=== PATIENT | female | born 1995 | race Hispanic/Latino ===

== ENCOUNTER 2021-02-09 15:49 | Emergency (ER) | payer OTHER, MEDICAID, SELFPAY ==
[2021-02-09 15:59] VITALS: BP 134/81; PULSE 81; RESP 18; TEMP 36.4; O2SAT 99
[2021-02-09] MEDS: ONDANSETRON 4 MG ODT SL (16:20)
--- NOTE | 2021-02-09 20:28 | ED.NAVMDI ---
HPI - Nausea/Vomiting/Diarrhea General Chief complaint: Nausea/Vomiting/Diarrhea Stated complaint: vomiting s/p yesterday Source: patient Mode of arrival: Ambulatory Related Data Allergies Allergy/AdvReac Type Severity Reaction Status Date / Time No Known Drug Allergies Allergy Verified 02/09/21 16:01 Patient History Social History Smoking Status: Never smoker Smoking Status: Never smoker Exam Initial Vital Signs Initial Vital Signs: Vital Signs Temperature 97.5 F L 02/09/21 15:59 Pulse Rate 81 02/09/21 15:59 Respiratory Rate 18 02/09/21 15:59 Blood Pressure 134/81 02/09/21 15:59 Pulse Oximetry 99 02/09/21 15:59 Course Orders Ordered: Discontinued Medications Ondansetron HCl (Ondansetron 4 Mg Odt) 4 mg SL NOW ONE Stop: 02/09/21 16:03 Last Admin: 02/09/21 16:20 Dose: 4 mg Documented by: MERVAT Vital Signs Vital signs: Vital Signs - 8 hr 02/09/21 15:59 Temperature 97.5 F L Pulse Rate 81 Respiratory Rate 18 Blood Pressure 134/81 Pulse Oximetry 99 Discharge Plan Departure Patient Disposition: Left Against Medical Advice Clinical Impression: Patient left before evaluation by physician Stand Alone Forms: Against Medical Advice
== END 2021-02-09 17:54 | disposition left against medical advice (07) ==
PROVIDERS: Emergency Provider Emergency Medicine; PCP Pediatrics
CPT/HCPCS: 99283

== ENCOUNTER 2021-05-04 18:06 | Emergency (ER) | payer OTHER, MEDICAID, SELFPAY ==
[2021-05-04 18:31] VITALS: BP 123/85; PULSE 86; RESP 20; TEMP 37.1; O2SAT 97
--- NOTE | 2021-05-04 19:37 | DI.US.S_ITS ---
PROCEDURE: US OB <= 14 WEEKS FETUS INDICATIONS: BLEEDING, CRAMPING OUTSIDE/PRIOR DATING DATA: Last menstrual period (LMP): 03/30/2021. LMP-based estimated date of delivery (BRITTANY): 01/02/2022. First dating scan (date and location): This exam. Estimated date of delivery (BRITTANY) from first dating scan: 05/04/2021. TECHNIQUE: Real-time scanning was performed of the fetus and maternal pelvic organs, with image documentation. Endovaginal scanning was also performed to better visualize the fetus and maternal ovaries. COMPARISON: None. FINDINGS: There is an intrauterine gestation sac. Based on the mean gestation sac dimension, the estimated gestational age is 5 weeks 6 days. A pole is not identified. There is a complex fluid collection in the endometrial canal. No free fluid in the cul-de-sac or adnexa. Embryo: n.a. Heart rate: n.a. Measurement variability in dating: +/- 4 weeks by LMP, +/- 7 days by mean sac diameter (use before 6 weeks gestation if crown-rump length not able to be measured), +/- 5 days by crown-rump length (up to 8 weeks 6 days gestation), +/- 7 days by crown-rump length (up to 13 weeks 6 days gestation). Maternal organs: Left ovary contains a 5.2 x 2.7 x 2.2 cm complex cyst. Left ovary contains a 1.4 x 1.0 x 1.3 cm complex cyst. IMPRESSION: 1. There is an intrauterine gestational sac but no pole. The finding could be secondary to early intrauterine . 2. Cannot rule out ectopic at this time. Recommend clinical correlation and follow-up. 3. Complex fluid collection in the endometrial canal. Recommend imaging follow-up as clinically indicated. 4. Bilateral complex cysts in ovaries. Dictated by: Elizabeth Morrison M.D. on 05/04/2021 at 21:17 Approved by: Elizabeth Morrison M.D. on 05/04/2021 at 21:21
--- NOTE | 2021-05-04 20:05 | ED.GENADULT ---
HPI - General Adult General Chief complaint: Vaginal Bleeding Stated complaint: 5 weeks bleeding Time Seen by Provider: 05/04/21 19:34 Source: patient Mode of arrival: Ambulatory History of Present Illness HPI narrative: 25-year-old female. at approximately 5 weeks EGA he was here for evaluation of vaginal bleeding. She believes she is approximately 5 weeks EGA based on her last menstrual cycle. Earlier today she started noticing some lower abdominal cramping. She states that she feels like she squamous started menstrual cycle. No urinary symptoms. No change in bowel habits. No vomiting. Related Data Allergies Allergy/AdvReac Type Severity Reaction Status Date / Time No Known Drug Allergies Allergy Verified 02/09/21 16:01 Review of Systems Cardiovascular Cardiovascular: Reports system reviewed and no additional complaints, except as documented Respiratory Respiratory: Reports system reviewed and no additional complaints, except as documented Gastrointestinal Gastrointestinal: Reports as per HPI and Reports system reviewed and no additional complaints, except as documented Genitourinary Genitourinary: Reports system reviewed and no additional complaints, except as documented and Reports as per HPI Hematologic/Lymphatic On Anticoagulants: No Patient History Medical History Healthy adult Social History Smoking Status: Never smoker Smoking Status: Never smoker Exam Initial Vital Signs Initial Vital Signs: Vital Signs Temperature 98.7 F 05/04/21 18:31 Pulse Rate 86 05/04/21 18:31 Respiratory Rate 20 05/04/21 18:31 Blood Pressure 123/85 05/04/21 18:31 Pulse Oximetry 97 05/04/21 18:31 Const General: cooperative and healthy appearing [facility] Head: normal to inspection and normocephalic Resp Effort & Inspection: normal respiratory effort Cardio Rate: regular rate GI Inspection: normal to inspection Skin General: no rashes or lesions noted Neuro General: patient alert, patient awake, patient oriented x3 and moves all extremities Extrem General: normal to inspection and capillary refill normal Course Orders Ordered: ED Orders 05/04/21 19:37 US OB <= 14 weeks fetus Stat 05/04/21 20:12 Basic Metabolic Panel Stat Complete Blood Count AUTO DIFF Stat HCG Quantitative /Beta subunit Stat 05/04/21 20:15 ABO RH Type Stat Vital Signs Vital signs: Vital Signs - 8 hr 05/04/21 22:26 Pulse Rate 85 Respiratory Rate 14 Blood Pressure 118/80 Pulse Oximetry 99 Medical Decision Making Lab Data Lab results reviewed: Yes I reviewed the patient's lab results. Result diagrams: 05/04/21 20:12 05/04/21 20:12 Labs: Lab Results 05/04/21 05/04/21 05/04/21 Range/Units 20:12 20:12 20:12 WBC 10.9 (4.5-11.0) X10^3/uL RBC 3.95 L (4.0-5.2) X10^6/uL Hgb 12.4 (12.0-16.0) g/dL Hct 36.8 (36-46) % MCV 93.1 (80-100) fL MCH 31.3 (26-34) PG MCHC 33.6 (30-36) % RDW 12.8 (11.6-14.8) % Plt Count 260 (150-400) X10^3/uL Neut % (Auto) 71.0 (50-75) % Lymph % (Auto) 23.2 L (25-40) % Harvey % (Auto) 4.5 (3-14) % Eos % (Auto) 0.8 L (2-4) % Baso % (Auto) 0.5 (0-2) % Neut # (Auto) 7800 H (7743-0628) /uL Lymph # (Auto) 2500 (9706-9126) /uL Harvey # (Auto) 500 (0-900) /uL Eos # (Auto) 100 (0-450) /uL Baso # (Auto) 100 (0-100) /uL Sodium 139 (137-145) mmol/L Potassium 3.4 (3.4-5.1) mmol/L Chloride 104 (98-107) mmol/L Carbon Dioxide 23 (22-32) mmol/L BUN 7 (7-17) mg/dL Creatinine 0.53 (0.52-1.04) mg/dL Estimated GFR > 60.0 (>60) mL/min BUN/Creatinine Ratio 13.2 (6-22) Glucose 92 (70-100) mg/dL Calcium 9.3 (8.4-10.2) mg/dL HCG, Quant 647 mIU/mL Blood Type 05/04/21 Range/Units 20:15 WBC (4.5-11.0) X10^3/uL RBC (4.0-5.2) X10^6/uL Hgb (12.0-16.0) g/dL Hct (36-46) % MCV (80-100) fL MCH (26-34) PG MCHC (30-36) % RDW (11.6-14.8) % Plt Count (150-400) X10^3/uL Neut % (Auto) (50-75) % Lymph % (Auto) (25-40) % Harvey % (Auto) (3-14) % Eos % (Auto) (2-4) % Baso % (Auto) (0-2) % Neut # (Auto) (7770-0664) /uL Lymph # (Auto) (4595-8442) /uL Harvey # (Auto) (0-900) /uL Eos # (Auto) (0-450) /uL Baso # (Auto) (0-100) /uL Sodium (137-145) mmol/L Potassium (3.4-5.1) mmol/L Chloride (98-107) mmol/L Carbon Dioxide (22-32) mmol/L BUN (7-17) mg/dL Creatinine (0.52-1.04) mg/dL Estimated GFR (>60) mL/min BUN/Creatinine Ratio (6-22) Glucose (70-100) mg/dL Calcium (8.4-10.2) mg/dL HCG, Quant mIU/mL Blood Type O Positive Point of Care Testing Test Results Positive Urine Dip Bedside Urine Glucose Negative Bedside Urine Bilirubin - Negative Bedside Urine Ketone - Negative Urine Specific [place] 1.03 Bedside Urine Occult Blood + Bedside Urine pH 6 Bedside Urine Protein - Negative Bedside Urine Urobilinogen - Negative Bedside Urine Nitrite - Negative Bedside Urine Leukocytes - Negative Esterase Point of care testing: Point of Care Testing Test Results Positive Urine Dip Bedside Urine Glucose Negative Bedside Urine Bilirubin - Negative Bedside Urine Ketone - Negative Urine Specific [place] 1.03 Bedside Urine Occult Blood + Bedside Urine pH 6 Bedside Urine Protein - Negative Bedside Urine Urobilinogen - Negative Bedside Urine Nitrite - Negative Bedside Urine Leukocytes - Negative Esterase Imaging Data US - OB: Radiologist's Impression: [address] [address] Ultrasound Report Signed Patient: Jeannine Hall MR#: [id number] : 1995 Acct:[id number] Age/Sex: 25 / F Date of Service: 05/04/21 Loc: Accession Number: [id number] ?? Procedure: US OB <= 14 weeks fetus Ordering Provider: Francisco Tarango D.O. PROCEDURE:? US OB <= 14 WEEKS FETUS ? INDICATIONS:? BLEEDING, CRAMPING ? OUTSIDE/PRIOR DATING DATA:? Last menstrual period (LMP):? 03/30/2021.? LMP-based estimated date of delivery (BRITTANY):? 01/02/2022.? First dating scan (date and location):? This exam.? Estimated date of delivery (BRITTANY) from first dating scan:? 05/04/2021.? ? TECHNIQUE:? Real-time scanning was performed of the fetus and maternal pelvic organs, with image documentation.? Endovaginal scanning was also performed to better visualize the fetus and maternal ovaries.? ? COMPARISON:? None. ? FINDINGS:? There is an intrauterine gestation sac.? Based on the mean gestation sac dimension, the estimated gestational age is 5 weeks 6 days.? A pole is not identified.? There is a complex fluid collection in the endometrial canal.? No free fluid in the cul-de-sac or adnexa. ? Embryo:? n.a. Heart rate: n.a. ? Measurement variability in dating:? +/- 4 weeks by LMP, +/- 7 days by mean sac diameter (use before 6 weeks gestation if crown-rump length not able to be measured), +/- 5 days by crown-rump length (up to 8 weeks 6 days gestation), +/- 7 days by crown-rump length (up to 13 weeks 6 days gestation).? ? Maternal organs:? Left ovary contains a 5.2 x 2.7 x 2.2 cm complex cyst.? Left ovary contains a 1.4 x 1.0 x 1.3 cm complex cyst. ? ? ? IMPRESSION:? ? 1. There is an intrauterine gestational sac but no pole.? The finding could be secondary to early intrauterine . ? 2. Cannot rule out ectopic at this time.? Recommend clinical correlation and follow-up. ? 3. Complex fluid collection in the endometrial canal.? Recommend imaging follow-up as clinically indicated. ? 4. Bilateral complex cysts in ovaries.? Dictated by: Elizabeth Morrison M.D. on 05/04/2021 at 21:17 ? ? Approved by: Elizabeth Morrison M.D. on 05/04/2021 at 21:21?? MDM Narrative Medical decision making narrative: Patient is Rh positive. HCG quant below the discriminatory threshold. Gestational sac but no yolk sac seen on the ultrasound. I did discuss this with the patient. We did discuss the concern for potential ectopic because we did not definitively see the fetus in the uterus. We discussed the potential for the quantitative being low because of a miscarriage versus is elevating because of her early . Recommend that the patient receive a repeat quantitative level in 48 hours from today. She was given strict return precautions and follow-up instructions. She will either contact her OB provider to have this lab draw or return to the emergency department. She expressed understanding and agreement this plan. Discharge Plan Departure Patient Disposition: Home Clinical Impression: Threatened Instructions: DI for Vaginal Bleeding During Activity Restrictions/Additional Instructions: It is important that she have a repeat lab draw in 48 hours from now. Contact your OB provider to schedule this or you can return to the emergency department. If you start to have new symptoms to include increasing pain, fevers, bleeding more than a couple pads an hour for several hours in a row then you do need to return to the emergency department sooner than 48 hours. Your blood type is O positive Referrals: Balbina Escudero MD [Primary Care Provider] -
[2021-05-04 20:18] LABS: Add Manual Diff / Slide Review NO; Basophils Absolute Auto 100 /uL (0-100); Basophils Percent Auto 0.5 % (0-2); Eosinophils Absolute Auto 100 /uL (0-450); Eosinophils Percent Auto 0.8 % (2-4); Hematocrit 36.8 % (36-46); Hemoglobin 12.4 g/dL (12.0-16.0); Lymphocytes Absolute Auto 2500 /uL (1100-4500); Lymphocytes Percent Auto 23.2 % (25-40); Mean Corpuscular HGB Conc 33.6 % (30-36); Mean Corpuscular Hemoglobin 31.3 PG (26-34); Mean Corpuscular Volume 93.1 fL (80-100); Monocytes Absolute Auto 500 /uL (0-900); Monocytes Percent Auto 4.5 % (3-14); Neutrophils Absolute Auto 7800 /uL (1500-7000); Platelet Count 260 X10^3/uL (150-400); Red Blood Cell Count 3.95 X10^6/uL (4.0-5.2); Red Cell Distribution Width 12.8 % (11.6-14.8); White Blood Cell Count 10.9 X10^3/uL (4.5-11.0)
[2021-05-04 20:31] LABS: BUN Creatinine Ratio 13.2 (6-22); Blood Urea Nitrogen 7 mg/dL (7-17); Calcium 9.3 mg/dL (8.4-10.2); Carbon Dioxide 23 mmol/L (22-32); Chloride 104 mmol/L (98-107); Estimated Glomerular Filt Rate > 60.0 mL/min (>60); Glucose 92 mg/dL (70-100); HEMOLYSIS < 15 (0-50); Potassium 3.4 mmol/L (3.4-5.1); Sodium 139 mmol/L (137-145)
[2021-05-04 20:51] LABS: HCG Quantitative /Beta subunit 647 mIU/mL
[2021-05-04 22:26] VITALS: BP 118/80; PULSE 85; RESP 14; O2SAT 99
== END 2021-05-04 22:32 | disposition home or self-care (01) ==
PROVIDERS: Emergency Provider Emergency Medicine; PCP Pediatrics
DX: O20.0 Threatened abortion (principal); Z3A.01 Less than 8 weeks gestation of pregnancy
CPT/HCPCS: 36415; 76801; 76817; 80048; 81003; 81025; 84702; 85025; 86900; 86901; 99283; 99284

== ENCOUNTER 2021-10-01 19:28 | Emergency (ER) | payer OTHER, MEDICAID, SELFPAY ==
--- NOTE | 2021-10-01 19:35 | ED.EYEPROB ---
HPI - Eye Problem <JZA Corrigan - Last Filed: 10/01/21 20:29> General Chief complaint: Eye Problems Stated complaint: Right eye swollen shut x5 days Time Seen by Provider: 10/01/21 19:34 Related Data Previous Rx's Medication Instructions Recorded gentamicin 0.3 % (3 mg/gram) eye 0.5 inch EYE-RIGHT QID 5 Days #3.5 10/01/21 ointment g gentamicin 0.3 % eye drops 1 drp EAR-RIGHT QID 5 Days #5 ml 10/01/21 Allergies Allergy/AdvReac Type Severity Reaction Status Date / Time latex Allergy Verified 10/01/21 19:47 Review of Systems <JAZ Corrigan - Last Filed: 10/01/21 20:29> Review of Systems Narrative: General: denies fever, chills Head/Neck: denies headache, neck pain Eyes: denies visual changes, eye pain Cardio: denies chest pain, palpitations Respiratory: denies shortness of breath, cough GI: denies abdominal pain, nausea, vomiting, or diarrhea : denies dysuria, hematuria MSK: denies joint pain, muscle weakness Skin: denies rash, itching Neuro: denies numbness, tingling Patient History <JAZ Corrigan - Last Filed: 10/01/21 20:29> Medical History Healthy adult Social History Smoking Status: Never smoker Smoking Status: Never smoker Exam <JAZ Corrigan - Last Filed: 10/01/21 20:29> Narrative Exam Narrative: Independently reviewed vitals signs and nursing notes. General: Awake, alert, nontoxic, no cardiorespiratory distress Head/Neck: Atraumatic, neck full range of motion Eyes: EOMI, conjunctiva normal Nose: nares patent, no rhinorrhea Mouth/Throat: moist mucus membranes, posterior pharynx normal, no oral lesions Cardio: Regular rate and rhythm, no peripheral edema Respiratory: respirations unlabored without wheezing, stridor, or rales. No retractions. GI: Abdomen soft, nontender MSK: Moves all extremities, neurovascularly intact Skin: Normal capillary refill, no rash Neuro: Normal speech and cognition, normal gait Initial Vital Signs Initial Vital Signs: Vital Signs Pulse Rate 78 10/01/21 20:06 Respiratory Rate 20 10/01/21 20:06 Blood Pressure 106/53 L 10/01/21 20:06 Pulse Oximetry 100 10/01/21 20:06 <Graham Clement DO - Last Filed: 10/02/21 00:55> Initial Vital Signs Initial Vital Signs: Vital Signs Pulse Rate 78 10/01/21 20:06 Respiratory Rate 20 10/01/21 20:06 Blood Pressure 106/53 L 10/01/21 20:06 Pulse Oximetry 100 10/01/21 20:06 Course <JAZ Corrigan - Last Filed: 10/01/21 20:29> Orders Ordered: Discontinued Medications Acetaminophen (Acetaminophen 325 Mg Tablet) 975 mg PO NOW ONE Stop: 10/01/21 20:02 Last Admin: 10/01/21 20:18 Dose: 975 mg Documented by: FELIPE Gentamicin Sulfate (Gentamicin 0.1% Oint 30 Gm) 1 applic TOP NOW ONE Stop: 10/01/21 20:02 Gentamicin Sulfate (Gentamicin 0.3% Ophth 5 Ml) 1 drops EYE-LEFT QID BETTY Ofloxacin (Ofloxacin 0.3% Ophth 5 Ml) 1 drops EYE-BOTH NOW ONE Stop: 10/01/21 20:15 Last Admin: 10/01/21 20:19 Dose: 1 drop Documented by: FELIPE Vital Signs Vital signs: Vital Signs - 8 hr 10/01/21 20:06 Pulse Rate 78 Respiratory Rate 20 Blood Pressure 106/53 L Pulse Oximetry 100 <Graham Clement DO - Last Filed: 10/02/21 00:55> Orders Ordered: Discontinued Medications Acetaminophen (Acetaminophen 325 Mg Tablet) 975 mg PO NOW ONE Stop: 10/01/21 20:02 Last Admin: 10/01/21 20:18 Dose: 975 mg Documented by: FELIPE Gentamicin Sulfate (Gentamicin 0.1% Oint 30 Gm) 1 applic TOP NOW ONE Stop: 10/01/21 20:02 Gentamicin Sulfate (Gentamicin 0.3% Ophth 5 Ml) 1 drops EYE-LEFT QID BETTY Ofloxacin (Ofloxacin 0.3% Ophth 5 Ml) 1 drops EYE-BOTH NOW ONE Stop: 10/01/21 20:15 Last Admin: 10/01/21 20:19 Dose: 1 drop Documented by: FELIPE Vital Signs Vital signs: Vital Signs - 8 hr 10/01/21 20:06 Pulse Rate 78 Respiratory Rate 20 Blood Pressure 106/53 L Pulse Oximetry 100 [facility] - Eye Problem <Rosio Barriga, YARN DUMPER - Last Filed: 10/01/21 20:29> [facility] Narrative Medical decision making narrative: [age] old female presents to the emergency department with right eyelid erythema for 2 days after starting erythromycin ointment for her corneal abrasion which occurred 4 days ago. Patient states that she got something in her eye 4 days ago, rubbed it, and had pain in tearing at night. She used natural tears for 2 days until her prescriber ordered her erythromycin ointment. She states that she has used this most recently at 11:00 today; after after using it she developed scleral and conjunctival injection, has had frequent tearing. She denies eye pain or foreign body sensation. She is not a contact lens wearer. She denies any eye pain with movement. She denies any pruritus. Fluorescein exam did not show any corneal abrasion, visual acuity Rt eye: 40/20, left 20/20, both 20/20, patient is wearing glasses and her vision was corrected for this exam. No evidence of chalazion, hordeolum, stye, blepharitis, or dacryocystitis. Patient denies any nasal pain or swelling, denies any eye discharge other than clear tears, states that the erythromycin ointment is irritating and painful. She was given afloxacin drops in the emergency department, she denied any pain with medication, she was instructed to uses 4 times daily for the next 5 days until she follows up with Ophthalmology or her scheduled adoption social worker appointment in 3 days. She was given a referral for Ophthalmology and instructed to follow-up with them sooner if she has any more pain or return to the emergency department for any worsening, any eye pain, any vision changes, facial swelling, or other concern. Differential includes iritis, other stated diagnoses above, conjunctivitis. Patient is appropriate and amenable to discharge home. Vital signs are stable on repeat examination is unremarkable. Patient has been informed of results. Patient has been given strict return to ER precautions for any new or worsening symptoms. Patient understands to follow up closely with outpatient providers as instructed. Patient understands plan and agrees to discharge home. All questions and concerns answered at this time. Discharge Plan Departure Patient Disposition: Home Clinical Impression: Conjunctivitis Qualifiers: Conjunctivitis type: acute Acute conjunctivitis type: unspecified Laterality: right Qualified Code(s): H10.31 - Unspecified acute conjunctivitis, right eye Instructions: Corneal Abrasion, Conjunctivitis Activity Restrictions/Additional Instructions: *You have been diagnosed with conjunctivitis, possibly reaction to the erythromycin ointment, possibly iritis. Please follow-up with your adoption social worker on Sunday as scheduled. Please call and make an appointment with the core paster on Sunday if it is significantly worse or return to the emergency department. If you have any eye pain with movement, difficulty seeing, feel eye pressure, or like a curtain is closing in your eye, please come to the emergency department immediately. Hopefully you start to get better with a new eye drop. Occult a prescription in to [facility] of drops and ointment. I prefer you take go with the drops and see if that makes it any better, if the lubrication is needed from the ointment, try that and see if it causes any problems. By that time you can follow-up the next day with Ophthalmology or Optometry. Take Tylenol every 6 hours as needed for pain. This can be a horrible things to deal with. I wish you the best. *What to do: *Please continue to take your regular medications as directed. [x ] New medication prescriptions sent to your pharmacy: [ [facility]] [ ] New medication written as a paper prescription [ ] No new medications given *Please follow up with your primary care provider in 2-3 days, call for an appointment. Let them know you were seen in the Emergency Department and that we asked that you be seen for follow-up. We will electronically transmit a record of today's note if your PCP is in our system *If you do not have a primary care provider please contact [phone] to establish care with one of the [facility] primary care providers. *Return to Emergency Department if you should have any new, worsening or concerning symptoms, such as [fever greater than 101F, chills, worsening pain, persistent vomiting or other bothersome symptoms] Prescriptions: New gentamicin 0.3 % (3 mg/gram) ointment 0.5 inch EYE-RIGHT QID 5 Days Qty: 3.5 0RF gentamicin 0.3 % drops 1 drp EAR-RIGHT QID 5 Days Qty: 5 0RF Referrals: Justin Peters MD [Physician] - Sandie Johansen ARNP [Primary Care Provider] - <Graham Clement DO - Last Filed: 10/02/21 00:55> Cosign ED Attending Cosignature Attestation: I was immediately available in the department for consultation. This documentation has been reviewed and I agree with assessment and plan. Supervised by rGaham Clement DO
[2021-10-01 19:45] VITALS: BMI 30.8
[2021-10-01 20:06] VITALS: BP 106/53; PULSE 78; RESP 20; O2SAT 100
[2021-10-01] MEDS: ACETAMINOPHEN 325 MG TABLET 975 MG PO (20:18)
[2021-10-01] MEDS: OFLOXACIN 0.3% OPHTH 5 ML 1 DROPS EYE-BOTH (20:19)
== END 2021-10-01 20:28 | disposition home or self-care (01) ==
PROVIDERS: Emergency Provider Nurse Practitioner Critical Care Medicine; PCP Nurse Practitioner Family
DX: H10.31 Unspecified acute conjunctivitis, right eye (principal)
CPT/HCPCS: 99282; 99283

== ENCOUNTER 2021-10-09 17:49 | Emergency (ER) | payer OTHER, MEDICAID, SELFPAY ==
[2021-10-09 18:13] VITALS: BP 126/61; PULSE 90; RESP 16; TEMP 36.4; O2SAT 99; BMI 30.8
[2021-10-09] MEDS: SODIUM CHLORIDE 0.9% 1,000 ML 1000 ML IV (18:36)
[2021-10-09] MEDS: ONDANSETRON 4 MG/2 ML INJ IV (18:36)
[2021-10-09] MEDS: ONDANSETRON 4 MG/2 ML INJ (20:20)
[2021-10-09 21:28] LABS: Add Manual Diff / Slide Review NO; Basophils Absolute Auto 0 /uL (0-100); Basophils Percent Auto 0.2 % (0-2); Eosinophils Absolute Auto 0 /uL (0-450); Eosinophils Percent Auto 0.1 % (2-4); Hematocrit 38.5 % (36-46); Lymphocytes Absolute Auto 1300 /uL (1100-4500); Lymphocytes Percent Auto 10.6 % (25-40); Mean Corpuscular HGB Conc 33.8 % (30-36); Mean Corpuscular Hemoglobin 31.8 PG (26-34); Mean Corpuscular Volume 94.1 fL (80-100); Monocytes Absolute Auto 400 /uL (0-900); Monocytes Percent Auto 3.3 % (3-14); Neutrophils Absolute Auto 10500 /uL (1500-7000); Neutrophils Percent Auto 85.8 % (50-75); Platelet Count 270 X10^3/uL (150-400); Red Blood Cell Count 4.09 X10^6/uL (4.0-5.2); White Blood Cell Count 12.2 X10^3/uL (4.5-11.0)
[2021-10-09 21:38] LABS: Alanine Aminotransferase 31 IU/L (<35); Albumin 4.7 g/dL (3.5-5.0); Albumin Globulin Ratio 1.1 (1.0-2.8); Alkaline Phosphatase 54 U/L (38-126); Aspartate Aminotransferase 43 IU/L (14-36); BUN Creatinine Ratio 17.3 (6-22); Bilirubin Total 0.5 mg/dL (0.2-1.3); Blood Urea Nitrogen 9 mg/dL (7-17); Calcium 9.2 mg/dL (8.4-10.2); Carbon Dioxide 20 mmol/L (22-32); Chloride 104 mmol/L (98-107); Estimated Glomerular Filt Rate > 60.0 mL/min (>60); Globulin 4.1 g/dL (1.7-4.1); Glucose 79 mg/dL (70-100); HEMOLYSIS 22 (0-50); Potassium 3.7 mmol/L (3.4-5.1); Sodium 137 mmol/L (137-145); Total Protein 8.8 g/dL (6.3-8.2)
--- NOTE | 2021-10-09 21:58 | PC.NURSE ---
2020: with h/o hyperemesis comes to ED today with nausea and vomiting that started at 0300 this morning. no associated abd painm, denies bleeding or spotting. Has not yet has her first OB appt but is using a mainstreaming facilitator in [place]. IV placed and labs drawn. pt placed in [place] parikh with 1L NS infusing and zofran given. upon completion of NS pt states she is feeling better however slightly nauseated. 2nd dose 4mg zofran given per SEP and pt PO challenged with water and passed. Pt waiting to see physician. No complaints. 2144: Pt states she is feeling better. Pt still has not been evaluated by MD. Pt states she would like to go home and be with her family. Pt left [facility]. See DC for further documentation.
[2021-10-09 22:20] LABS: HCG Quantitative /Beta subunit 43363 mIU/mL
== END 2021-10-09 21:46 | disposition left against medical advice (07) ==
PROVIDERS: Emergency Provider Emergency Medicine; PCP Nurse Practitioner Family
DX: Z53.21 Procedure and treatment not carried out due to patient leaving prior to being seen by health care provider (principal)
CPT/HCPCS: 36415; 80053; 84702; 85025; 99284; J2405

== ENCOUNTER 2021-10-12 20:53 | Emergency (ER) | payer OTHER, MEDICAID, SELFPAY ==
[2021-10-12] VITALS (7 sets, daily range): BP systolic 93–124; BP diastolic 51–78; PULSE 69–74; RESP 16–18; TEMP 36.6; O2SAT 100; BMI 29.8
[2021-10-12] MEDS: ONDANSETRON 4 MG/2 ML INJ IV (21:52)
[2021-10-12] MEDS: SODIUM CHLORIDE 0.9% 1,000 ML 1000 ML IV ×2 (21:53→23:18)
[2021-10-12 22:37] LABS: Add Manual Diff / Slide Review NO; Basophils Absolute Auto 0 /uL (0-100); Basophils Percent Auto 0.3 % (0-2); Eosinophils Absolute Auto 0 /uL (0-450); Eosinophils Percent Auto 0.3 % (2-4); Hematocrit 35.6 % (36-46); Hemoglobin 12.1 g/dL (12.0-16.0); Lymphocytes Absolute Auto 1900 /uL (1100-4500); Lymphocytes Percent Auto 19.3 % (25-40); Mean Corpuscular Hemoglobin 31.8 PG (26-34); Mean Corpuscular Volume 93.6 fL (80-100); Monocytes Absolute Auto 600 /uL (0-900); Monocytes Percent Auto 6.2 % (3-14); Neutrophils Absolute Auto 7300 /uL (1500-7000); Neutrophils Percent Auto 73.9 % (50-75); Platelet Count 249 X10^3/uL (150-400); Red Cell Distribution Width 12.7 % (11.6-14.8); White Blood Cell Count 9.8 X10^3/uL (4.5-11.0)
--- NOTE | 2021-10-12 22:41 | ED.NAVMDI ---
HPI - Nausea/Vomiting/Diarrhea General Chief complaint: Nausea/Vomiting/Diarrhea Stated complaint: states needs fluids , 7 weeks Time Seen by Provider: 10/12/21 21:49 Source: patient Mode of arrival: Ambulatory History of Present Illness HPI Narrative: The patient is with 2 first-trimester miscarriages. She is currently 7 weeks . She developed persistent nausea vomiting 3 days ago. She has no diarrhea. She has upper abdominal cramping. She has no vaginal bleeding. She has Zofran at home, which is not controlling the vomiting. She had hyperemesis gravidarum, onset at 5 weeks with the successful . She recognizes the symptoms, obviously. She has headache, visual changes, chest pain, cough or dyspnea. She has no chronic GI issues. She denies dysuria, or hematuria. She has no chronic medical problems. Related Data Previous Rx's Medication Instructions Recorded promethazine 12.5 mg rectal 12.5 mg NM Q6H PRN #30 ea 10/13/21 suppository Allergies Allergy/AdvReac Type Severity Reaction Status Date / Time latex Allergy Verified 10/12/21 21:04 Review of Systems Constitutional Constitutional: Denies anorexia, Denies body ache(s), Denies chills, Denies fatigue and Denies fever(s) Eyes Eyes: Denies change in vision ENT Ears, Nose, Mouth, and Throat: Denies vertigo, Reports dizziness, Denies neck pain, Denies sinus pressure and Denies sore throat Cardiovascular Cardiovascular: Denies chest pain, Denies syncope, Denies rapid heart rate and Denies dyspnea Respiratory Respiratory: Denies cough and Denies dyspnea Gastrointestinal Gastrointestinal: Reports as per HPI Genitourinary Genitourinary: Denies dysuria and Denies flank pain Comments: No hematuria. Musculoskeletal Musculoskeletal: Denies neck pain Integumentary/Breasts Skin/Breast: Denies rash Neurologic Neurologic: Denies confusion, Denies vertigo, Reports dizziness and Denies syncope Psychiatric Psychiatric: Denies confusion Endocrine Endocrine: Denies fatigue Patient History Medical History (Updated 10/13/21 @ 01:04 by Federico Cuevas MD) Healthy adult Hyperemesis gravidarum Surgical History (Updated 10/12/21 @ 22:46 by Federico Cuevas MD) No significant past surgical history Social History Smoking Status: Never smoker Smoking Status: Never smoker alcohol intake frequency: 0-2 drinks per day Substance Use Type: does not use Exam Initial Vital Signs Initial Vital Signs: Vital Signs Temperature 97.9 F 10/12/21 21:00 Pulse Rate 71 10/12/21 21:00 Respiratory Rate 18 10/12/21 21:00 Blood Pressure 124/78 10/12/21 21:00 Pulse Oximetry 100 10/12/21 21:00 Const General: cooperative, healthy appearing, comfortable, well developed and well groomed [facility] Head: normocephalic and atraumatic Mouth: other (Normal moist oral mucosa) Eyes General: appearance normal, both eyes and all related structures Neck Neck: normal visual inspection Resp Auscultation: clear to auscultation bilaterally Cardio Rate: regular rate Rhythm: regular rhythm Heart Sounds: S1 normal, S2 normal and no murmurs GI Other: Mild epigastric discomfort with palpation. No guarding. No masses. Normal bowel sounds. Back/Spine/Pelvis Back: No CVA tenderness Skin General: no rashes or lesions noted Neuro General: patient alert, patient awake, patient oriented x3 and no focal motor deficits Extrem General: normal to inspection, no pedal edema and no calf tenderness Psych Mental Status: mental status grossly normal Course Course Course Narrative: The patient has received 2 units of IV fluids, she has received IV Zofran. She is sipping fluids. She has urine output. She is feeling better. She has Zofran available at home. I will prescribe promethazine suppositories. She has planned follow-up with her doctor, she can return here as needed. Orders Ordered: ED Orders 10/12/21 22:25 Complete Blood Count AUTO DIFF Stat Comprehensive Metabolic Panel Stat Lipase Stat 10/12/21 22:30 Ictotest Urine Stat Urine Microscopic Stat Discontinued Medications Sodium Chloride (Normal Saline 0.9%) 1,000 mls @ 1,000 mls/hr IV BOLUS ONE Stop: 10/12/21 22:49 Last Infusion: 10/12/21 23:16 Dose: 0 mls/hr Documented by: Admin: 10/12/21 21:53 Dose: 1,000 mls/hr Documented by: FELIPE Sodium Chloride (Normal Saline 0.9%) 1,000 mls @ 1,000 mls/hr IV BOLUS ONE Stop: 10/13/21 00:02 Last Admin: 10/12/21 23:18 Dose: 1,000 mls/hr Documented by: JENA Ondansetron HCl (Ondansetron 4 Mg/2 Ml Inj) 4 mg IV NOW ONE Stop: 10/12/21 21:51 Last Admin: 10/12/21 21:52 Dose: 4 mg Documented by: FELIPE Vital Signs Vital signs: Vital Signs - 8 hr 10/12/21 21:00 10/12/21 21:47 10/12/21 22:00 Temperature 97.9 F Pulse Rate 71 73 71 Respiratory Rate 18 18 16 Blood Pressure 124/78 114/62 100/52 L Pulse Oximetry 100 100 100 10/12/21 22:30 10/12/21 23:00 10/12/21 23:30 Temperature Pulse Rate 69 70 69 Respiratory Rate Blood Pressure 106/57 L 94/52 L Pulse Oximetry 100 100 100 10/12/21 23:34 10/13/21 00:00 10/13/21 00:49 Temperature Pulse Rate 74 76 68 Respiratory Rate 18 Blood Pressure 93/51 L 95/58 L 105/56 L Pulse Oximetry 100 100 98 MDM - Nausea/Vomiting/Diarrhea Lab Data Result diagrams: 10/12/21 22:25 10/12/21 22:25 Labs: Lab Results 10/12/21 10/12/21 10/12/21 Range/Units 22:25 22:25 22:30 WBC 9.8 (4.5-11.0) X10^3/uL RBC 3.80 L (4.0-5.2) X10^6/uL Hgb 12.1 (12.0-16.0) g/dL Hct 35.6 L (36-46) % MCV 93.6 (80-100) fL MCH 31.8 (26-34) PG MCHC 34.0 (30-36) % RDW 12.7 (11.6-14.8) % Plt Count 249 (150-400) X10^3/uL Neut % (Auto) 73.9 (50-75) % Lymph % (Auto) 19.3 L (25-40) % [place] % (Auto) 6.2 (3-14) % Eos % (Auto) 0.3 L (2-4) % Baso % (Auto) 0.3 (0-2) % Neut # (Auto) 7300 H (6670-4657) /uL Lymph # (Auto) 1900 (1530-9946) /uL [place] # (Auto) 600 (0-900) /uL Eos # (Auto) 0 (0-450) /uL Baso # (Auto) 0 (0-100) /uL Sodium 139 (137-145) mmol/L Potassium 3.4 (3.4-5.1) mmol/L Chloride 105 (98-107) mmol/L Carbon Dioxide 21 L (22-32) mmol/L BUN 8 (7-17) mg/dL Creatinine 0.50 L (0.52-1.04) mg/dL Estimated GFR > 60.0 (>60) mL/min BUN/Creatinine Ratio 16.0 (6-22) Glucose 81 (70-100) mg/dL Calcium 8.5 (8.4-10.2) mg/dL Total Bilirubin 0.5 (0.2-1.3) mg/dL AST 36 (14-36) IU/L ALT 43 H (<35) IU/L Alkaline Phosphatase 44 (38-126) U/L Total Protein 8.4 H (6.3-8.2) g/dL Albumin 4.4 (3.5-5.0) g/dL Globulin 4.0 (1.7-4.1) g/dL Albumin/Globulin Ratio 1.1 (1.0-2.8) Lipase 118 (23-300) U/L Ur Bilirubin Confirm Negative (Negative) Urine RBC (0-5/HPF) Urine WBC (0-5/HPF) Ur Squamous Epith Cells (0-5/HPF) Urine Bacteria (None) Urine Mucus (Negative) Ur Culture Indicated? 10/12/21 Range/Units 22:30 WBC (4.5-11.0) X10^3/uL RBC (4.0-5.2) X10^6/uL Hgb (12.0-16.0) g/dL Hct (36-46) % MCV (80-100) fL MCH (26-34) PG MCHC (30-36) % RDW (11.6-14.8) % Plt Count (150-400) X10^3/uL Neut % (Auto) (50-75) % Lymph % (Auto) (25-40) % [place] % (Auto) (3-14) % Eos % (Auto) (2-4) % Baso % (Auto) (0-2) % Neut # (Auto) (8515-1652) /uL Lymph # (Auto) (7190-2132) /uL [place] # (Auto) (0-900) /uL Eos # (Auto) (0-450) /uL Baso # (Auto) (0-100) /uL Sodium (137-145) mmol/L Potassium (3.4-5.1) mmol/L Chloride (98-107) mmol/L Carbon Dioxide (22-32) mmol/L BUN (7-17) mg/dL Creatinine (0.52-1.04) mg/dL Estimated GFR (>60) mL/min BUN/Creatinine Ratio (6-22) Glucose (70-100) mg/dL Calcium (8.4-10.2) mg/dL Total Bilirubin (0.2-1.3) mg/dL AST (14-36) IU/L ALT (<35) IU/L Alkaline Phosphatase (38-126) U/L Total Protein (6.3-8.2) g/dL Albumin (3.5-5.0) g/dL Globulin (1.7-4.1) g/dL Albumin/Globulin Ratio (1.0-2.8) Lipase (23-300) U/L Ur Bilirubin Confirm (Negative) Urine RBC None seen (0-5/HPF) Urine WBC 0-1/hpf (0-5/HPF) Ur Squamous Epith Cells 5-10 /hpf H (0-5/HPF) Urine Bacteria Moderate (10-30) H (None) Urine Mucus 3+ H (Negative) Ur Culture Indicated? Cult not indicated Urine Dip Bedside Urine Glucose Negative Bedside Urine Bilirubin + 1 Bedside Urine Ketone +/- 5 Urine Specific [place] 1.025 Bedside Urine Occult Blood - Negative Bedside Urine pH 6 Bedside Urine Protein +/- 15 Bedside Urine Urobilinogen 2+ 4mg Bedside Urine Nitrite - Negative Bedside Urine Leukocytes - Negative Esterase Discharge Plan Departure Patient Disposition: Home Clinical Impression: Hyperemesis gravidarum, First trimester Instructions: Hyperemesis Gravidarum Activity Restrictions/Additional Instructions: Morris diet, be sure you are drinking plenty of fluids. Zofran or promethazine every 4 hours as needed for nausea. Follow-up with your doctor as planned. Return here as necessary. Prescriptions: New promethazine 12.5 mg suppository 12.5 mg NM Q6H PRN (Reason: nausea and vomiting) Qty: 30 0RF Referrals: Sandie Johansen ARNP [Primary Care Provider] -
[2021-10-12 22:44] LABS: Alanine Aminotransferase 43 IU/L (<35); Albumin 4.4 g/dL (3.5-5.0); Albumin Globulin Ratio 1.1 (1.0-2.8); Alkaline Phosphatase 44 U/L (38-126); Aspartate Aminotransferase 36 IU/L (14-36); Bilirubin Total 0.5 mg/dL (0.2-1.3); Blood Urea Nitrogen 8 mg/dL (7-17); Calcium 8.5 mg/dL (8.4-10.2); Carbon Dioxide 21 mmol/L (22-32); Chloride 105 mmol/L (98-107); Estimated Glomerular Filt Rate > 60.0 mL/min (>60); Glucose 81 mg/dL (70-100); HEMOLYSIS < 15 (0-50); Lipase 118 U/L (23-300); Potassium 3.4 mmol/L (3.4-5.1); Sodium 139 mmol/L (137-145); Total Protein 8.4 g/dL (6.3-8.2)
[2021-10-12 22:51] LABS: Ictotest Urine Negative (Negative)
[2021-10-12 22:52] LABS: Bacteria Urine Moderate (10-30); Culture Indicated Urine Cult Not Indicated; Mucus Urine 3+ (Negative); RBC Urine None Seen (0-5/HPF); Squamous Epithelial Cell Urine 5-10 /HPF (0-5/HPF); WBC Urine 0-1/HPF (0-5/HPF)
[2021-10-13] VITALS: BP 95/58; PULSE 76; O2SAT 100
[2021-10-13 00:49] VITALS: BP 105/56; PULSE 68; RESP 18; O2SAT 98
[2021-10-13 01:00] VITALS: BP 92/55; PULSE 63; O2SAT 99
== END 2021-10-13 01:25 | disposition home or self-care (01) ==
PROVIDERS: Emergency Provider Emergency Medicine; PCP Nurse Practitioner Family
DX: O21.0 Mild hyperemesis gravidarum (principal); Z3A.01 Less than 8 weeks gestation of pregnancy
CPT/HCPCS: 36415; 80053; 81003; 81015; 83690; 85025; 96361; 96374; 99284; J2405

== ENCOUNTER 2021-10-16 20:28 | Observation (INO) | payer OTHER, MEDICAID, SELFPAY ==
[2021-10-16 20:32] VITALS: BP 109/87; PULSE 83; RESP 22; BMI 29.2
--- NOTE | 2021-10-16 20:41 | ED_ITS ---
HPI - Nausea/Vomiting/Diarrhea General Chief complaint: Nausea/Vomiting/Diarrhea Stated complaint: IV FOR HYPEREMESIS 8 WKS Time Seen by Provider: 10/16/21 20:41 Source: patient Mode of arrival: Ambulatory History of Present Illness HPI Narrative: 26-year-old currently at 8 weeks with severe hyperemesis. On 10/01 she weighed 74kg, 5.5% . Despite doses of Zofran and rectal Phenergan she is still not able to keep liquids or solids down and comes in with severe nausea and fatigue. She is not complaining of any vaginal discharge or bleeding. She has not had any fevers coughs, no abdominal pain headache chest pain or palpitations. Related Data Previous Rx's Medication Instructions Recorded promethazine 12.5 mg rectal 12.5 mg AR Q6H PRN #30 ea 10/13/21 suppository Allergies Allergy/AdvReac Type Severity Reaction Status Date / Time latex Allergy Verified 10/12/21 21:04 Review of Systems Review of Systems Narrative: Remainder of complete review of systems is otherwise unremarkable except for that included in the HPI. Patient History Medical History Healthy adult Hyperemesis gravidarum Surgical History No significant past surgical history Social History Smoking Status: Never smoker Smoking Status: Never smoker alcohol intake frequency: 0-2 drinks per day Substance Use Type: does not use Exam Initial Vital Signs Initial Vital Signs: Vital Signs Pulse Rate 83 10/16/21 20:32 Respiratory Rate 22 10/16/21 20:32 Blood Pressure 109/87 10/16/21 20:32 General: Healthy appearing, in no acute distress. Able to give a complete and coherent history. Well-nourished well-developed HEENT: Dry mucous membranes, normal sclera with reactive pupils, Respiratory: Lungs are clear to auscultation, no wheezing no rales no rhonchi. Full and symmetrical air movement Cardiac: Regular rate and rhythm no murmurs no bruits Abdomen: Soft, nontender, good bowel tones, no flank pain Skin: Pale,Warm and dry, no rashes Neurologic: Grossly neurologically intact with no obvious asymmetries or abnormalities Extremities: No trauma, well perfused Psych: Cooperative, appropriate insight and affect Bedside ultrasound shows 2 sacs with 2 poles, both with heart rate 150-160. Course Orders Ordered: ED Orders 10/16/21 20:55 Complete Blood Count AUTO DIFF Stat Comprehensive Metabolic Panel Stat Sodium Chloride (Normal Saline 0.9%) 1,000 mls @ 200 mls/hr IV CONT BETTY Metoclopramide HCl (Metoclopramide 10 Mg/2 Ml Inj) 10 mg IV Q6HR PRN PRN Reason: Nausea And Vomiting Ondansetron HCl (Ondansetron 4 Mg/2 Ml Inj) 4 mg IV Q6HR PRN PRN Reason: Nausea And Vomiting Discontinued Medications Sodium Chloride (Normal Saline 0.9%) 1,000 mls @ 2,000 mls/hr IV BOLUS ONE Stop: 10/16/21 21:17 Last Infusion: 10/16/21 21:46 Dose: 0 mls/hr Documented by: Admin: 10/16/21 20:57 Dose: 2,000 mls/hr Documented by: ATAYLOR Sodium Chloride (Normal Saline 0.9%) 1,000 mls @ 1,000 mls/hr IV BOLUS ONE Stop: 10/16/21 22:12 Last Infusion: 10/16/21 22:13 Dose: 0 mls/hr Documented by: Admin: 10/16/21 21:34 Dose: 1,000 mls/hr Documented by: ATAYLOR Sodium Chloride (Normal Saline 0.9%) 1,000 mls @ 1,000 mls/hr IV BOLUS ONE Stop: 10/16/21 23:06 Last Admin: 10/16/21 22:12 Dose: 1,000 mls/hr Documented by: ATAESTHELAOR Ondansetron HCl (Ondansetron 4 Mg/2 Ml Inj) 8 mg IV NOW ONE Stop: 10/16/21 20:49 Last Admin: 10/16/21 20:58 Dose: 8 mg Documented by: ATAYLOR Ondansetron HCl (Ondansetron 4 Mg/2 Ml Inj) 4 mg IV NOW ONE Stop: 10/16/21 22:08 Last Admin: 10/16/21 22:12 Dose: 4 mg Documented by: ATAYLOR Vital Signs Vital signs: Vital Signs - 8 hr 10/16/21 20:32 Pulse Rate 83 Respiratory Rate 22 Blood Pressure 109/87 MDM - Nausea/Vomiting/Diarrhea Lab Data Result diagrams: 10/16/21 20:55 10/16/21 20:55 Labs: Lab Results 10/16/21 10/16/21 Range/Units 20:55 20:55 WBC 10.0 (4.5-11.0) X10^3/uL RBC 3.94 L (4.0-5.2) X10^6/uL Hgb 12.5 (12.0-16.0) g/dL Hct 36.6 (36-46) % MCV 92.9 (80-100) fL MCH 31.8 (26-34) PG MCHC 34.2 (30-36) % RDW 12.3 (11.6-14.8) % Plt Count 242 (150-400) X10^3/uL Neut % (Auto) 76.0 H (50-75) % Lymph % (Auto) 17.4 L (25-40) % [place] % (Auto) 6.0 (3-14) % Eos % (Auto) 0.3 L (2-4) % Baso % (Auto) 0.3 (0-2) % Neut # (Auto) 7600 H (1770-5999) /uL Lymph # (Auto) 1700 (8793-1542) /uL [place] # (Auto) 600 (0-900) /uL Eos # (Auto) 0 (0-450) /uL Baso # (Auto) 0 (0-100) /uL Sodium 137 (137-145) mmol/L Potassium 3.1 L (3.4-5.1) mmol/L Chloride 104 (98-107) mmol/L Carbon Dioxide 22 (22-32) mmol/L BUN 9 (7-17) mg/dL Creatinine 0.59 (0.52-1.04) mg/dL Estimated GFR > 60.0 (>60) mL/min BUN/Creatinine Ratio 15.3 (6-22) Glucose 79 (70-100) mg/dL Calcium 9.1 (8.4-10.2) mg/dL Total Bilirubin 0.7 (0.2-1.3) mg/dL AST 32 (14-36) IU/L ALT 39 H (<35) IU/L Alkaline Phosphatase 50 (38-126) U/L Total Protein 8.5 H (6.3-8.2) g/dL Albumin 4.5 (3.5-5.0) g/dL Globulin 4.0 (1.7-4.1) g/dL Albumin/Globulin Ratio 1.1 (1.0-2.8) MDM Narrative Medical decision making narrative: 26-year-old with newly diagnosed twin via bedside ultrasound in the emergency department with hyperemesis gravidarum. With her 1st she ended up with the Zofran pump and multiple L of fluid over the course of her . She has lost 5.5% of her total body weight over the last 2 weeks and is unable to keep anything down with both Zofran and Phenergan available. Care was discussed with Dr. Briggs and will admit the patient overnight, observation status for longer fluid repletion and consideration for PICC line in anticipation of again a difficulties with hyperemesis gravidarum. Need a formal ultrasound in the morning as the 2 sacs and 2 heart beats noted in the emergency department were quite a surprise for her. She does note that her is a twin. She is safe for hospital admission at this time Discharge Plan Departure Patient Disposition: Admitted as Observation Clinical Impression: Hyperemesis gravidarum, First trimester , Acute dehydration, Excessive weight loss Admit Date/Time: 10/16/21 22:49 Admit Provider: Danica Briggs
[2021-10-16] MEDS: SODIUM CHLORIDE 0.9% 1,000 ML 2000 ML IV (20:57)
[2021-10-16] MEDS: ONDANSETRON 4 MG/2 ML INJ 8 MG IV (20:58)
[2021-10-16 21:11] LABS: Add Manual Diff / Slide Review NO; Basophils Absolute Auto 0 /uL (0-100); Basophils Percent Auto 0.3 % (0-2); Eosinophils Absolute Auto 0 /uL (0-450); Eosinophils Percent Auto 0.3 % (2-4); Hematocrit 36.6 % (36-46); Hemoglobin 12.5 g/dL (12.0-16.0); Lymphocytes Absolute Auto 1700 /uL (1100-4500); Lymphocytes Percent Auto 17.4 % (25-40); Mean Corpuscular HGB Conc 34.2 % (30-36); Mean Corpuscular Hemoglobin 31.8 PG (26-34); Mean Corpuscular Volume 92.9 fL (80-100); Monocytes Absolute Auto 600 /uL (0-900); Neutrophils Absolute Auto 7600 /uL (1500-7000); Platelet Count 242 X10^3/uL (150-400); Red Blood Cell Count 3.94 X10^6/uL (4.0-5.2); Red Cell Distribution Width 12.3 % (11.6-14.8)
[2021-10-16 21:18] LABS: Alanine Aminotransferase 39 IU/L (<35); Albumin 4.5 g/dL (3.5-5.0); Albumin Globulin Ratio 1.1 (1.0-2.8); Alkaline Phosphatase 50 U/L (38-126); Aspartate Aminotransferase 32 IU/L (14-36); BUN Creatinine Ratio 15.3 (6-22); Bilirubin Total 0.7 mg/dL (0.2-1.3); Blood Urea Nitrogen 9 mg/dL (7-17); Calcium 9.1 mg/dL (8.4-10.2); Carbon Dioxide 22 mmol/L (22-32); Chloride 104 mmol/L (98-107); Estimated Glomerular Filt Rate > 60.0 mL/min (>60); Glucose 79 mg/dL (70-100); HEMOLYSIS < 15 (0-50); Potassium 3.1 mmol/L (3.4-5.1); Sodium 137 mmol/L (137-145); Total Protein 8.5 g/dL (6.3-8.2)
[2021-10-16] MEDS: SODIUM CHLORIDE 0.9% 1,000 ML 1000 ML IV ×2 (21:34→22:12)
--- NOTE | 2021-10-16 21:35 | PC.NURSE ---
Pt reports some improvement in symptoms, water provided and pt took a sip, so far tolerated.
[2021-10-16] MEDS: ONDANSETRON 4 MG/2 ML INJ IV (22:12)
[2021-10-16 23:06] VITALS: BP 121/68; PULSE 88; RESP 16; O2SAT 99; BMI 29.2
[2021-10-16 23:23] LABS: COVID19 -Nasal RAPID Negative (Negative)
[2021-10-17] MEDS: SODIUM CHLORIDE 0.9% 1,000 ML 200 ML IV ×5 (00:13→22:34)
[2021-10-17 00:15] VITALS: BP 115/69; PULSE 73; RESP 17; TEMP 36.7; O2SAT 100
[2021-10-17] MEDS: ONDANSETRON 4 MG/2 ML INJ IV ×3 (00:19→15:36)
--- NOTE | 2021-10-17 07:30 | DI.US.S_ITS ---
PROCEDURE: US OB <= 14 WEEKS FETUS INDICATIONS: DATES; HYPEREMESIS OUTSIDE/PRIOR DATING DATA: Last menstrual period (LMP): 08/21/2021. LMP-based estimated date of delivery (BRITTANY): 05/28/2022. First dating scan (date and location): 10/17/2021. Estimated date of delivery (BRITTANY) from first dating scan: 06/08/2022. The calculations are made using the ultrasound BRITTANY of 06/08/2022 TECHNIQUE: Real-time scanning was performed of the fetuses and maternal pelvic organs, with image documentation. Endovaginal scanning: Performed for better visualization of the fetuses and maternal adnexal structures. COMPARISON: [facility], OB <= 14 WEEKS FETUS, 05/04/2021, 20:25. FINDINGS: General: An intrauterine diamniotic/ dichorionic twin is present, as evidenced by separate placental sites and/or intervening membrane thickness of greater than 2 mm at this early gestational age. Embryo A: 7 mm 6 weeks 4 days Heart rate: 130 beats per minute Embryo B: 7 mm 6 weeks 3 days Heart rate: 136 beats per minute Maternal organs: Ovaries demonstrate likely left corpus luteal cyst. IMPRESSION: Dichorionic diamniotic with ultrasound gestational age of 6 weeks 4 days. Recommend follow-up imaging at 20-22 weeks for dates and anatomy. We strive to produce accurate, complete, and clear reports of imaging services. To assist us in improving patient care, this report was composed using standard report templates and voice recognition software. Therefore, it may contain abnormal punctuation, insertions and/or omissions. Occasional wrong-word or sound-alike substitutions may occur. Though we review the report and make efforts to correct it, we do recommend that the report be read carefully in proper context to recognize any text inaccuracies. Dictated by: Cuca Orosco M.D. on 10/17/2021 at 8:34 Approved by: Cuca Orosco M.D. on 10/17/2021 at 8:36
--- NOTE | 2021-10-17 09:27 | P.HP_ITS ---
History of Present Illness History of Present Illness Date Patient Seen: 10/17/21 Time Patient Seen: 08:15 Chief complaint: IV FOR HYPEREMESIS 8 WKS Narrative: Patient is a 26-year-old 4 para 1 at 8 weeks gestation who presented to the emergency department last evening unable to keep any liquids or solids down for more than 24 hours. Patient had hyperemesis gravidarum with her first . She had a Zofran pump which helped significantly. She reports that the nausea and vomiting continued into the third trimester with her first . This is a twin as of ultrasound done in the emergency department last night. She tried some water this morning but was not able to keep it down. She is currently on Zofran and Reglan. No bleeding or cramping. Patient History Medical History Healthy adult Hyperemesis gravidarum Surgical History No significant past surgical history Family & Social History Safety & Behavioral: Feels Safe in Current Yes Environment Been Physically Hurt or No Threatened By a Person Tobacco & Substance use: Smoking Status Never smoker alcohol intake frequency 0-2 drinks per day Substance Use Type does not use Meds Home Medications and Allergies Home Medications Medication Instructions Recorded Confirmed Type fluorometholone 0.1 % eye 1 drp EYE-RIGHT TID 10/17/21 10/17/21 History drops,suspension ondansetron 4 mg disintegrating 4 mg PO Q8HR PRN 10/17/21 10/17/21 History tablet promethazine 12.5 mg rectal 12.5 mg ND Q6H PRN 10/17/21 10/17/21 History suppository Allergies Allergy/AdvReac Type Severity Reaction Status Date / Time latex Allergy Verified 10/12/21 21:04 Exam Vital Signs (past 8 hours): Oxygen Delivery Method Room Air Narrative Exam Narrative: Generally: Patient is sitting up in bed, no acute distress Lungs: Clear to auscultation bilaterally Cardiovascular: Regular rate and rhythm Abdomen: Soft and flat. Good bowel sounds in all 4 quadrants. Extremities: No edema Ultrasound present at the time of the exam. This is a twin measuring approximately 7 weeks gestation. Objective Labs Result Diagrams: 10/16/21 20:55 10/16/21 20:55 Labs: Laboratory Results - last 24 hr 10/16/21 10/16/21 10/16/21 20:55 20:55 23:00 WBC 10.0 RBC 3.94 L Hgb 12.5 Hct 36.6 MCV 92.9 MCH 31.8 MCHC 34.2 RDW 12.3 Plt Count 242 Neut % (Auto) 76.0 H Lymph % (Auto) 17.4 L [place] % (Auto) 6.0 Eos % (Auto) 0.3 L Baso % (Auto) 0.3 Neut # (Auto) 7600 H Lymph # (Auto) 1700 [place] # (Auto) 600 Eos # (Auto) 0 Baso # (Auto) 0 Sodium 137 Potassium 3.1 L Chloride 104 Carbon Dioxide 22 BUN 9 Creatinine 0.59 Estimated GFR > 60.0 BUN/Creatinine Ratio 15.3 Glucose 79 Calcium 9.1 Total Bilirubin 0.7 AST 32 ALT 39 H Alkaline Phosphatase 50 Total Protein 8.5 H Albumin 4.5 Globulin 4.0 Albumin/Globulin Ratio 1.1 SARS-CoV-2 (PCR) Negative Assessment & Plan Assessment & Plan narrative: Assessment: 26-year-old 4 para 1 at 7 weeks gestation with a dichorionic/diamniotic twin Hyperemesis gravidarum History of hyperemesis gravidarum with her first History of a Zofran pump with first Hypokalemia Plan: Replace potassium per pharmacy protocol Contact [facility] regarding Zofran pump COVID-19 COVID-19 status: Negative Result date/Date tested (Pos, Neg/Pending): 10/16/21 Time Spent With Patient Time with patient: less than 30 minutes Critical Care time: I spent a total of [] minutes of critical care time on this patient's care today; this time is exclusive of procedural time.
[2021-10-17 09:37] VITALS: BP 105/64; PULSE 68; RESP 18; TEMP 36.1; O2SAT 100
[2021-10-17] MEDS: METOCLOPRAMIDE 10 MG/2 ML INJ IV ×2 (09:46→19:58)
[2021-10-17] MEDS: POTASSIUM CHLORIDE IN WATER 10 MEQ/100 ML PIGGYBACK 100 MEQ IV ×4 (09:46→13:01)
--- NOTE | 2021-10-17 11:59 | CM.DANOTE ---
Addendum entered by FRANTZ Gilliland 10/17/21 15:13: ADD: Per RN, spoke to OBGYN this afternoon and [facility] updated her that they can have Zofran pump supplies by 10/19/21 and pt to have PICC placed for IV hydration as well. OBGYN confirmed she has the MD order form needed for [facility] and to be determined if pt to remain in the hospital until Zofran pump available on Sun or if she stabilizes enough for d/c tomorrow while awaiting [facility] on Sun. Plan: SW to follow in the AM with [facility] to confirm plan and to determine if PICC insertion note needed and any other clinicals to be faxed. BF Original Note: Patient is a 26 yo female who was admitted on 10/16/21 for Hyperemesis and . Pt has [employer] and [employer] for insurance and her PCP is Sandie Johansen. EMR was reviewed. Per OBGYN, pt and had similar medical needs when she was last time and OBGYN contacted [facility] to determine if they could set pt up again with Zofran pump and possible IV hydration at discharge but per their discussion [facility] has low supply of the tubing for Zofran Pump due to supply shortage but will determine if they can open pt to service as they provided care for pt during last . Per RN, pt remains very nauseous and fatigued and currently no PICC placed yet and pt quite miserable. Pt is currently with twins and during last pt has ongoing hyperemesis until 30 weeks and currently 8 weeks . GEORGE called Reymundo at [facility] with new referral and faxed initial clinicals to review and he will determine with their team if they can accept pt if they have enough supplies and helped SW to print off the MD Orders Form from their website for MD to complete if they can open pt to service for Zofran pump and possible IV hydration. SW placed form on pt chart and updated RN in case MD needs to complete prior to d/c. Plan: SW to follow closely for [facility] review to determine if they have the supplies needed to meet pt's needs at d/c and pt progress. FRANTZ Gilliland Discharge Planning/Care Management CM Discharge Assessment Start: 10/17/21 11:54 Freq: Status: Active Protocol: Document 10/17/21 11:54 BF (Rec: 10/17/21 11:59 BF [id number]) Discharge Planning Assessment Assigned [place] Machine [employer] FRANTZ Nobles Advance Directives? No Advance Directives on File No History Provided By Patient,Medical Record Has Patient been admitted in last 30 No days? Prior Living Arrangements House Household Members spouse,family Type of transporation used prior to Drives own vehicle admit Independent with ADL's Yes Is patient alert and oriented? Yes Caregiver for Another Yes: young child at home, currently with twins Community Services used prior to IV Therapy admission: Comment Pt may need ongoing fluid infusions and zofran pump Comment Likely home with [facility] Barriers to Discharge No Discharge Plan Home Community Services IV Therapy Transportation Arrangement Spouse can likely transport at d/c Referrals Initiated Other Additional Comment [facility] following for possible IV hydration and Zofran pump Review Status In Process Please Provide Date Initial DC 10/17/21 Assessment Was Performed Next Review Type Continued Stay Review
--- NOTE | 2021-10-17 17:04 | DI.RAD.S_ITS ---
PROCEDURE: XR CHEST FOR PICC 1V INDICATIONS: PICC line placement COMPARISON: None. FINDINGS: No focal consolidation or mass. The cardiomediastinal silhouette is normal. Pulmonary vasculature is normal. There is no pneumothorax or pleural effusion. Visualized bones have no fracture or focal osseous abnormality. Left arm PICC line is well positioned with the tip in the SVC. IMPRESSION: Tip of PICC projects to the area of left mid SVC. Dictated by: Mick Norris M.D. on 10/17/2021 at 17:22 Approved by: Mick Norris M.D. on 10/17/2021 at 17:22
[2021-10-17 17:30] VITALS: BP 107/62; PULSE 77; RESP 18; TEMP 36.7; O2SAT 100
[2021-10-17 20:00] VITALS: BP 107/62; PULSE 83; RESP 17; TEMP 36.6; O2SAT 100
[2021-10-18] MEDS: SODIUM CHLORIDE 0.9% 1,000 ML 200 ML IV ×2 (03:35→08:34)
[2021-10-18 04:00] VITALS: BP 105/59; PULSE 77; RESP 19; TEMP 36.9; O2SAT 100
[2021-10-18 05:34] LABS: Carbon Dioxide 19 mmol/L (22-32); Chloride 109 mmol/L (98-107); Estimated Glomerular Filt Rate > 60.0 mL/min (>60); Glucose 79 mg/dL (70-100); HEMOLYSIS < 15 (0-50); Potassium 3.4 mmol/L (3.4-5.1); Sodium 136 mmol/L (137-145)
[2021-10-18 05:35] LABS: BUN Creatinine Ratio 4.5 (6-22); Blood Urea Nitrogen < 2 mg/dL (7-17)
--- NOTE | 2021-10-18 06:03 | PC.NURSE ---
shift note: Pt slept well for long intervals during the night, no Nausea or Vomiting. IV NS continues @ 200/hr. pt anticipating discharge.
[2021-10-18] MEDS: ONDANSETRON 4 MG/2 ML INJ IV (08:09)
[2021-10-18 09:39] VITALS: BP 110/60; PULSE 76; RESP 18; TEMP 36.6; O2SAT 100
[2021-10-18] MEDS: POTASSIUM CHLORIDE IN WATER 10 MEQ/100 ML PIGGYBACK 100 MEQ IV ×2 (09:53→10:55)
[2021-10-18] MEDS: METOCLOPRAMIDE 10 MG/2 ML INJ IV (10:25)
--- NOTE | 2021-10-18 12:35 | PC.NURSE ---
Patient discharged to home with [facility] PICC in place. New appointments set up with Dr. Briggs's office, one new Rx sent to pharmacy in [place]. [facility] to call to set up pump per care management. Patient given discharge instructions on keeping IV clean/dry and signs of infection. Patient given supplies to help with bathing with IV. Patient says she's had an IV at home before and has no concerns or further questions about discharge. PICC dressing changed just prior to discharge.
--- NOTE | 2021-10-18 12:53 | CM.DPNOTE ---
Sent clinicals per Erica to [facility] and received fax conf. Brittany Polanco CM Assist.
--- NOTE | 2021-10-19 08:05 | PM.DS.1 ---
History of Present Illness History of Present Illness Date Patient Seen: 10/18/21 Time Patient Seen: 08:05 Chief complaint: IV FOR HYPEREMESIS 8 WKS Narrative: Patient is a 26-year-old 4 para 1 at 8 weeks gestation who presented to the emergency department last evening unable to keep any liquids or solids down for more than 24 hours. Patient had hyperemesis gravidarum with her first . She had a Zofran pump which helped significantly. She reports that the nausea and vomiting continued into the third trimester with her first . This is a twin as of ultrasound done in the emergency department on Sunday evening. She is using Zofran and Reglan for nausea. She received a PICC line yesterday. She is set up for Zofran pump to be placed October 19, 2021. Discharge Providers Provider Date of admission: 10/16/21 22:49 Discharge Date: 10/18/21 Primary care physician: JAZ Pham Consults: PICC line Discharge provider: Danica Briggs MD Summary Hospital Course Discharge Diagnosis: Dichorionic/diamniotic twins at 8 weeks gestation Hyperemesis gravidarum Dehydration PICC line placement IV hydration and antiemetic treatment Hospital Course: Patient is a 26-year-old 4 para 1 who presented to the emergency department on October 16, 2021 with several days inability to keep any food or liquids down. She had severe hyperemesis with her first . She was admitted for IV hydration and antiemetics. On hospital day # 1 A consultation was placed for PICC line placement. Patient received the PICC line on October 17, 2021. [facility] in [place] were contacted on October 17, 2021 regarding a Zofran pump. Patient is scheduled to have this pump placed in her home on October 19, 2021. Later in the day on hospital day # 1, patient was able to keep down some fluids and some food. She is discharged home on hospital day # 2. She will follow-up for a new OB visit in the office in 2 weeks. Status at Discharge Cognitive/behavioral status at discharge: oriented Functional status at discharge: independent ambulation Overall status at discharge: patient is progressing back to baseline Time Spent with Patient Time spent: Less than 30 minutes Exam Vital Signs (past 8 hours): Oxygen Delivery Method Room Air Oxygen Flow Rate 0 Narrative Exam Narrative: Generally: Patient is sitting up in bed, no acute distress Lungs: Clear to auscultation bilaterally Cardiovascular: Regular rate and rhythm Abdomen: Soft and flat. Extremities: Negative Homans Objective Labs Result Diagrams: 10/16/21 20:55 10/18/21 05:15 PFSH Medical History Healthy adult Hyperemesis gravidarum Surgical History No significant past surgical history Social History household members: spouse and family Smoking Status: Never smoker Discharge Assessment & Plan Assessment and Plan Assessment: Assessment: 26-year-old 4 para 1 with dichorionic/diamniotic twins at 8 weeks gestation Hyperemesis with dehydration which has resolved Plan of Treatment: Discharge to home Follow-up in 2 weeks for new OB visit Zofran pump placement at home October 19, 2021 Discharge Plan Discharge Plan Patient Disposition: Home Provider Discharge Comment: Call with intractable nausea or vomiting. Call with any vaginal bleeding. Discharge orders & Medications Prescriptions: New metoclopramide HCl [Reglan] 10 mg tablet 10 mg PO Q6H PRN (Reason: nausea and vomiting) Qty: 20 2RF Continued fluorometholone 0.1 % drops,suspension 1 drp EYE-RIGHT TID 0RF Label Comments: INSTILL ONE DROP INTO RIGHT EYE THREE TIMES A DAY ondansetron 4 mg tablet,disintegrating 4 mg PO Q8HR PRN (Reason: Nausea) 0RF Label Comments: DISSOLVE ONE TABLET IN MOUTH EVERY 8 HOURS NEEDED FOR NAUSEA AND VOMITING promethazine 12.5 mg suppository 12.5 mg UT Q6H PRN (Reason: Nausea) 0RF Follow up/Referrals: Danica Briggs MD [Physician] - (My nurse will call patient's are an with appointment dates and times. [phone]) Diet/Activity/Treatments Diet: Diet as Tolerated Diet comment: Small frequent meals. Eat something before drinking. Keep something on th Activity: As tolerated Skin/Wound/Dressing Care Dressing: PICC line care Visit Report/Discharge Packet Instructions: DI for Hyperemesis Gravidarum Discharge Data Primary Care Provider: Sandie Johansen Attending Provider: Danica Briggs
== END 2021-10-18 12:54 | disposition home or self-care (01) ==
LOC: ED 20:41 → AC 22:53
PROVIDERS: Admitting Provider Obstetrics & Gynecology; Emergency Provider Emergency Medicine; PCP Nurse Practitioner Family; Visit Provider Obstetrics & Gynecology
DX: O21.1 Hyperemesis gravidarum with metabolic disturbance (principal); Z3A.08 8 weeks gestation of pregnancy; E86.0 Dehydration; Z20.822 Contact with and (suspected) exposure to COVID-19
CPT/HCPCS: 36415; 76801; 76802; 76817; 80048; 80053; 85025; 87635; 96361; 96365; 96366; 96375; 96376; 99284; C9803; G0378; J2405; J2765

== ENCOUNTER 2021-10-21 22:19 | Emergency (ER) | payer OTHER, MEDICAID, SELFPAY ==
[2021-10-21 22:23] VITALS: BP 126/66; PULSE 71; RESP 20; TEMP 36.8; O2SAT 99; BMI 28.9
[2021-10-21] MEDS: SODIUM CHLORIDE 0.9% 1,000 ML 1000 ML IV (22:40)
[2021-10-21] MEDS: METOCLOPRAMIDE 10 MG/2 ML INJ IV (22:41)
[2021-10-21 22:58] LABS: Add Manual Diff / Slide Review NO; Basophils Absolute Auto 0 /uL (0-100); Basophils Percent Auto 0.2 % (0-2); Eosinophils Absolute Auto 0 /uL (0-450); Eosinophils Percent Auto 0.4 % (2-4); Hematocrit 35.7 % (36-46); Hemoglobin 12.2 g/dL (12.0-16.0); Lymphocytes Absolute Auto 1800 /uL (1100-4500); Lymphocytes Percent Auto 16.3 % (25-40); Mean Corpuscular HGB Conc 34.2 % (30-36); Mean Corpuscular Hemoglobin 31.8 PG (26-34); Monocytes Absolute Auto 600 /uL (0-900); Monocytes Percent Auto 5.4 % (3-14); Neutrophils Absolute Auto 8400 /uL (1500-7000); Neutrophils Percent Auto 77.7 % (50-75); Platelet Count 232 X10^3/uL (150-400); Red Blood Cell Count 3.84 X10^6/uL (4.0-5.2); Red Cell Distribution Width 12.6 % (11.6-14.8); White Blood Cell Count 10.9 X10^3/uL (4.5-11.0)
--- NOTE | 2021-10-21 22:59 | PC.NURSE ---
Pt diagnosed with hyperemesis. started on Zofran pump yesterday.
[2021-10-21 23:13] LABS: Alanine Aminotransferase 66 IU/L (<35); Albumin 4.6 g/dL (3.5-5.0); Albumin Globulin Ratio 1.2 (1.0-2.8); Alkaline Phosphatase 59 U/L (38-126); Aspartate Aminotransferase 40 IU/L (14-36); BUN Creatinine Ratio 20.4 (6-22); Blood Urea Nitrogen 11 mg/dL (7-17); Calcium 9.2 mg/dL (8.4-10.2); Carbon Dioxide 23 mmol/L (22-32); Chloride 103 mmol/L (98-107); Estimated Glomerular Filt Rate > 60 mL/min (>60); Globulin 3.9 g/dL (1.7-4.1); Glucose 84 mg/dL (70-100); HEMOLYSIS < 15 (0-50); Potassium 3.2 mmol/L (3.4-5.1); Sodium 138 mmol/L (137-145); Total Protein 8.5 g/dL (6.3-8.2)
[2021-10-21 23:14] LABS: Ketones (Beta-Hydroxybutyrate) 0.73 mmol/L (<0.27)
--- NOTE | 2021-10-21 23:38 | ED.NAVMDI ---
HPI - Nausea/Vomiting/Diarrhea General Chief complaint: Nausea/Vomiting/Diarrhea Stated complaint: 8 WKS VOMITING NEEDS FLUIDS Time Seen by Provider: 10/21/21 22:24 Source: patient and family Mode of arrival: Ambulatory History of Present Illness HPI Narrative: 26-year-old female nonsmoker is a at 8 weeks and presents with ongoing nausea and vomiting with weakness. She was recently seen here under similar circumstances and had an extensive workup with IV fluids and labs, she was eventually stabilized and sent home with diagnosis of hyperemesis. She returns under similar circumstances. She has no pain, denies any fever or chills. She has had multiple prior episodes of hyperemesis. Related Data Home Medications Medication Instructions Recorded Confirmed fluorometholone 0.1 % eye 1 drp EYE-RIGHT TID 10/17/21 10/17/21 drops,suspension ondansetron 4 mg disintegrating 4 mg PO Q8HR PRN 10/17/21 10/17/21 tablet promethazine 12.5 mg rectal 12.5 mg SC Q6H PRN 10/17/21 10/17/21 suppository Previous Rx's Medication Instructions Recorded metoclopramide HCl 10 mg tablet 10 mg PO Q6H PRN #20 tab 10/18/21 (Reglan) Allergies Allergy/AdvReac Type Severity Reaction Status Date / Time latex Allergy Verified 10/12/21 21:04 Review of Systems Review of Systems Narrative: GENERAL: Denies chills, fatigue, malaise, fever, sweats. HEENT: Denies sinus pain, ear pain, sore throat, difficulty swallowing, dizziness. RESPIRATORY: Denies dyspnea, cough, wheezing, hemoptysis, sputum. CARDIOVASCULAR: Denies chest pain, palpitations, orthopnea, edema, GASTROINTESTINAL: See HPI : Denies dysuria, frequency, incontinence, hematuria, urinary retention. MUSCULOSKELETAL: denies weakness, joint pain, or bony pain SKIN: Denies rash, skin lesions, or other NEUROLOGIC: Denies weakness, headache, numbness, change in speech, confusion, seizures, incoordination. PSYCHIATRIC: No concerning psychosocial issues. 12 point review of systems is negative except for those stated above Patient History Medical History Healthy adult Hyperemesis gravidarum Surgical History No significant past surgical history Social History household members: spouse and family Smoking Status: Never smoker Smoking Status: Never smoker alcohol intake frequency: 0-2 drinks per day Substance Use Type: does not use Exam Narrative Exam Narrative: GENERAL: [26] year old patient appears stated age. Well-developed patient, in mild distress. HEAD: Atraumatic. Normocephalic. EYES: Pupils equal round and reactive. Extraocular motions intact. No scleral icterus. No injection or drainage. ENT: Nose without bleeding, purulent drainage. Throat without erythema, tonsillar hypertrophy or exudate. Airway patent. NECK: Trachea midline. Non tender CARDIOVASCULAR: Regular rate and rhythm without murmurs, gallops, or rubs. RESPIRATORY: Clear to auscultation. Breath sounds equal bilaterally. No wheezes, rales, or rhonchi. GASTROINTESTINAL: Abdomen soft, non-tender, nondistended. EXTREMITIES: No edema or joint tenderness. BACK: Nontender without deformity or crepitance. No flank tenderness. NEURO: AOx3. SKIN: No rash or erythema of visible areas Initial Vital Signs Initial Vital Signs: Vital Signs Temperature 98.2 F 10/21/21 22:23 Pulse Rate 71 10/21/21 22:23 Respiratory Rate 20 10/21/21 22:23 Blood Pressure 126/66 10/21/21 22:23 Pulse Oximetry 99 10/21/21 22:23 Course Orders Ordered: Discontinued Medications Sodium Chloride (Normal Saline 0.9%) 1,000 mls @ 1,000 mls/hr IV BOLUS ONE Stop: 10/21/21 23:23 Last Infusion: 10/22/21 00:35 Dose: 0 mls/hr Documented by: Admin: 10/21/21 22:40 Dose: 1,000 mls/hr Documented by: MELVA Sodium Chloride (Normal Saline 0.9%) 1,000 mls @ 1,000 mls/hr IV BOLUS ONE Stop: 10/22/21 01:35 Last Infusion: 10/22/21 01:37 Dose: 0 mls/hr Documented by: Admin: 10/22/21 00:37 Dose: 1,000 mls/hr Documented by: MELVA Metoclopramide HCl (Metoclopramide 10 Mg/2 Ml Inj) 10 mg IV NOW ONE Stop: 10/21/21 22:25 Last Admin: 10/21/21 22:41 Dose: 10 mg Documented by: MELVA Ondansetron HCl (Ondansetron 4 Mg/2 Ml Inj) 4 mg IV NOW ONE Stop: 10/21/21 22:25 Reevaluation(s) Reevaluation #1: Patient no longer vomiting after above-stated therapies. After 1st bag of normal saline she is feeling bit better but still weak Vital Signs Vital signs: Vital Signs - 8 hr 10/21/21 22:23 Temperature 98.2 F Pulse Rate 71 Respiratory Rate 20 Blood Pressure 126/66 Pulse Oximetry 99 MDM - Nausea/Vomiting/Diarrhea Lab Data Result diagrams: 10/21/21 22:50 10/21/21 22:50 Labs: Lab Results 10/21/21 10/21/21 10/21/21 Range/Units 22:50 22:50 22:50 WBC 10.9 (4.5-11.0) X10^3/uL RBC 3.84 L (4.0-5.2) X10^6/uL Hgb 12.2 (12.0-16.0) g/dL Hct 35.7 L (36-46) % MCV 93.0 (80-100) fL MCH 31.8 (26-34) PG MCHC 34.2 (30-36) % RDW 12.6 (11.6-14.8) % Plt Count 232 (150-400) X10^3/uL Neut % (Auto) 77.7 H (50-75) % Lymph % (Auto) 16.3 L (25-40) % O'Brien % (Auto) 5.4 (3-14) % Eos % (Auto) 0.4 L (2-4) % Baso % (Auto) 0.2 (0-2) % Neut # (Auto) 8400 H (6261-1169) /uL Lymph # (Auto) 1800 (6427-7305) /uL O'Brien # (Auto) 600 (0-900) /uL Eos # (Auto) 0 (0-450) /uL Baso # (Auto) 0 (0-100) /uL Sodium 138 (137-145) mmol/L Potassium 3.2 L (3.4-5.1) mmol/L Chloride 103 (98-107) mmol/L Carbon Dioxide 23 (22-32) mmol/L BUN 11 (7-17) mg/dL Creatinine 0.54 (0.52-1.04) mg/dL Estimated GFR > 60 (>60) mL/min BUN/Creatinine Ratio 20.4 (6-22) Glucose 84 (70-100) mg/dL Calcium 9.2 (8.4-10.2) mg/dL Total Bilirubin 1.0 (0.2-1.3) mg/dL AST 40 H (14-36) IU/L ALT 66 H (<35) IU/L Alkaline Phosphatase 59 (38-126) U/L Total Protein 8.5 H (6.3-8.2) g/dL Albumin 4.6 (3.5-5.0) g/dL Globulin 3.9 (1.7-4.1) g/dL Albumin/Globulin Ratio 1.2 (1.0-2.8) Ketones 0.73 H (<0.27) mmol/L MDM Narrative Medical decision making narrative: Patient was reassuring history and physical exam. She feels significant improvement after above-stated therapies. Vital signs are reassuring, patient able to tolerate orals. Return precautions given and questions answered to her apparent satisfaction Discharge Plan Departure Patient Disposition: Home Clinical Impression: Hyperemesis gravidarum Instructions: DI for Hyperemesis Gravidarum Activity Restrictions/Additional Instructions: *You have been diagnosed with [hyperemesis ] *What to do: *Please continue to take your regular medications as directed. [ ] New medication prescriptions sent to your pharmacy: [ ] [ ] New medication written as a paper prescription [x ] No new medications given *Please follow up with your primary care provider in 2-3 days, call for an appointment. Let them know you were seen in the Emergency Department and that we ask that you be seen in follow up. We will electronically transmit a record of today's note if your PCP is in our system *If you do not have a primary care provider please contact the [facility] Resource line at [phone]. They will ask some questions about your medical history and help get you set up with a doctor in the community. *Return to Emergency Department if you should have any new, worsening or concerning symptoms, such as [fever greater than 101 F, shaking chills, worsening pain, persistent vomiting or other bothersome symptoms] Prescriptions: No Action fluorometholone 0.1 % drops,suspension 1 drp EYE-RIGHT TID 0RF Label Comments: INSTILL ONE DROP INTO RIGHT EYE THREE TIMES A DAY ondansetron 4 mg tablet,disintegrating 4 mg PO Q8HR PRN (Reason: Nausea) 0RF Label Comments: DISSOLVE ONE TABLET IN MOUTH EVERY 8 HOURS NEEDED FOR NAUSEA AND VOMITING promethazine 12.5 mg suppository 12.5 mg SC Q6H PRN (Reason: Nausea) 0RF metoclopramide HCl [Reglan] 10 mg tablet 10 mg PO Q6H PRN (Reason: nausea and vomiting) Qty: 20 2RF Referrals: Sandie Johansen ARNP [Primary Care Provider] -
[2021-10-22] MEDS: SODIUM CHLORIDE 0.9% 1,000 ML 1000 ML IV (00:37)
[2021-10-22 01:44] VITALS: BP 112/65; PULSE 75; RESP 18; O2SAT 100
== END 2021-10-22 01:47 | disposition home or self-care (01) ==
PROVIDERS: Emergency Provider Emergency Medicine; PCP Nurse Practitioner Family
DX: O21.0 Mild hyperemesis gravidarum (principal); Z3A.08 8 weeks gestation of pregnancy
CPT/HCPCS: 36415; 80053; 82009; 85025; 96361; 96374; 99284; J2765

== ENCOUNTER 2021-10-23 20:43 | Emergency (ER) | payer OTHER, MEDICAID, SELFPAY ==
[2021-10-23 20:47] VITALS: BP 125/73; PULSE 81; RESP 20; TEMP 36.4; O2SAT 100
--- NOTE | 2021-10-23 21:13 | DI.US.S_ITS ---
PROCEDURE: US PERIPH VENOUS UP EXTREM LT INDICATIONS: PAIN, EDEMA; RECENT PICC REMOVAL TECHNIQUE: Real-time imaging, as well as color and pulse Doppler interrogation, was performed of the left upper extremity deep veins from the inferior neck to the antecubital fossa. COMPARISON: None. FINDINGS: The internal jugular vein, visualized portions of the subclavian vein, axillary, and brachial veins are free of intraluminal thrombus. Where physically possible, the veins are normally compressible. Color and pulse Doppler demonstrate normal intraluminal flow, with expected phasicity and pulsatility. Additional scanning of the cephalic and basilic veins of the superficial system demonstrate normal compressibility, without thrombus. IMPRESSION: No left upper extremity DVT. Dictated by: Shane Butt M.D. on 10/23/2021 at 22:27 Approved by: Shane Butt M.D. on 10/23/2021 at 22:27
--- NOTE | 2021-10-23 21:15 | ED.NAVMDI ---
HPI - Nausea/Vomiting/Diarrhea General Chief complaint: Nausea/Vomiting/Diarrhea Stated complaint: PICC line issues Time Seen by Provider: 10/23/21 20:51 Source: patient Mode of arrival: Ambulatory History of Present Illness HPI Narrative: 26-year-old female nonsmoker is a at 8 weeks has been seen multiple times for hyperemesis and as a result has a PICC line in her left upper extremity. She presents today because she states that just today she started having some pain in her left arm near the insertion point of the PICC and has noticed some crusting at the insertion point. She denies any significant swelling redness or systemic findings such as fever, chills. She is otherwise well and free of complaint Related Data Home Medications Medication Instructions Recorded Confirmed fluorometholone 0.1 % eye 1 drp EYE-RIGHT TID 10/17/21 10/17/21 drops,suspension ondansetron 4 mg disintegrating 4 mg PO Q8HR PRN 10/17/21 10/17/21 tablet promethazine 12.5 mg rectal 12.5 mg GA Q6H PRN 10/17/21 10/17/21 suppository Previous Rx's Medication Instructions Recorded metoclopramide HCl 10 mg tablet 10 mg PO Q6H PRN #20 tab 10/18/21 (Reglan) Allergies Allergy/AdvReac Type Severity Reaction Status Date / Time latex Allergy Verified 10/12/21 21:04 Review of Systems Review of Systems Narrative: GENERAL: Denies chills, fatigue, malaise, fever, sweats. HEENT: Denies sinus pain, ear pain, sore throat, difficulty swallowing, dizziness. RESPIRATORY: Denies dyspnea, cough, wheezing, hemoptysis, sputum. CARDIOVASCULAR: Denies chest pain, palpitations, orthopnea, edema, GASTROINTESTINAL: Denies nausea, vomiting, abdominal pain, diarrhea, constipation, melena. : Denies dysuria, frequency, incontinence, hematuria, urinary retention. MUSCULOSKELETAL: denies weakness, joint pain, or bony pain SKIN: See HPI NEUROLOGIC: Denies weakness, headache, numbness, change in speech, confusion, seizures, incoordination. PSYCHIATRIC: No concerning psychosocial issues. 12 point review of systems is negative except for those stated above Patient History Medical History Healthy adult Hyperemesis gravidarum Surgical History No significant past surgical history Social History household members: spouse and family Smoking Status: Never smoker Smoking Status: Never smoker alcohol intake frequency: 0-2 drinks per day Substance Use Type: does not use Exam Narrative Exam Narrative: GENERAL: [26] year old patient appears stated age. Well-developed patient, in mild distress. HEAD: Atraumatic. Normocephalic. EYES: Pupils equal round and reactive. Extraocular motions intact. No scleral icterus. No injection or drainage. ENT: Moist mucous membranes, Nose without bleeding, purulent drainage. Throat without erythema, tonsillar hypertrophy or exudate. Airway patent. NECK: Trachea midline. Non tender CARDIOVASCULAR: Regular rate and rhythm without murmurs, gallops, or rubs. RESPIRATORY: Clear to auscultation. Breath sounds equal bilaterally. No wheezes, rales, or rhonchi. GASTROINTESTINAL: Abdomen soft, non-tender, nondistended. EXTREMITIES: Minimal swelling and tenderness just adjacent to insertion point of pick without significant swelling, redness and no fluctuance, no lymphangitis noted. BACK: Nontender without deformity or crepitance. No flank tenderness. NEURO: AOx3. SKIN: No rash or erythema of visible areas Initial Vital Signs Initial Vital Signs: Vital Signs Temperature 97.6 F 10/23/21 20:47 Pulse Rate 81 10/23/21 20:47 Respiratory Rate 20 10/23/21 20:47 Blood Pressure 125/73 10/23/21 20:47 Pulse Oximetry 100 10/23/21 20:47 Course Course Course Narrative: PICC line removed, tip sent for culture, ultrasound activated, peripheral IV placed Orders Ordered: ED Orders 10/23/21 21:13 US periph venous up extrem lt Stat 10/23/21 21:20 Catheter Tip Culture Stat Vital Signs Vital signs: Vital Signs - 8 hr 10/23/21 20:47 Temperature 97.6 F Pulse Rate 81 Respiratory Rate 20 Blood Pressure 125/73 Pulse Oximetry 100 Discharge Plan Departure Patient Disposition: Home Clinical Impression: Infiltration of peripherally inserted central catheter (PICC) Activity Restrictions/Additional Instructions: *You have been diagnosed with [ PICC Line Problem. Ultrasound shows no obvious problem such as clot, the PICC line was sent to the lab for culture to evaluate for possible infection. ] *What to do: *Please continue to take your regular medications as directed. [ ] New medication prescriptions sent to your pharmacy: [ ] [ ] New medication written as a paper prescription [ ] No new medications given *Please follow up with your primary care provider in 2-3 days, call for an appointment. Let them know you were seen in the Emergency Department and that we ask that you be seen in follow up. We will electronically transmit a record of today's note if your PCP is in our system *If you do not have a primary care provider please contact the [facility] Resource line at [phone]. They will ask some questions about your medical history and help get you set up with a doctor in the community. *Return to Emergency Department if you should have any new, worsening or concerning symptoms, such as [fever greater than 101 F, shaking chills, worsening pain, persistent vomiting or other bothersome symptoms] Prescriptions: No Action fluorometholone 0.1 % drops,suspension 1 drp EYE-RIGHT TID 0RF Label Comments: INSTILL ONE DROP INTO RIGHT EYE THREE TIMES A DAY ondansetron 4 mg tablet,disintegrating 4 mg PO Q8HR PRN (Reason: Nausea) 0RF Label Comments: DISSOLVE ONE TABLET IN MOUTH EVERY 8 HOURS NEEDED FOR NAUSEA AND VOMITING promethazine 12.5 mg suppository 12.5 mg GA Q6H PRN (Reason: Nausea) 0RF metoclopramide HCl [Reglan] 10 mg tablet 10 mg PO Q6H PRN (Reason: nausea and vomiting) Qty: 20 2RF Referrals: Sandie Johansen ARNP [Primary Care Provider] -
--- NOTE | 2021-10-23 21:20 | PC.NURSE ---
left mid PICC line pulled per MD, tip intact will be sent down for culture, pt had been co pain at site and increased pain with movement of extremity
--- NOTE | 2021-10-23 23:00 | PC.NURSE ---
20g PIV placed in RAC per MD and sent home in place with pt for pt to continue to do home zofran infusions
== END 2021-10-23 23:02 | disposition home or self-care (01) ==
PROVIDERS: Emergency Provider Emergency Medicine; PCP Nurse Practitioner Family
DX: O26.891 Other specified pregnancy related conditions, first trimester (principal); T82.9XXA Unspecified complication of cardiac and vascular prosthetic device, implant and graft, initial encounter; Z3A.08 8 weeks gestation of pregnancy
CPT/HCPCS: 87070; 87205; 93971; 99281; 99283

== ENCOUNTER 2021-10-25 01:19 | Observation (INO) | payer OTHER, MEDICAID, SELFPAY ==
--- NOTE | 2021-10-25 01:28 | ED.NAVMDI ---
HPI - Nausea/Vomiting/Diarrhea General Chief complaint: Nausea/Vomiting/Diarrhea Stated complaint: THROWING UP, Time Seen by Provider: 10/25/21 01:23 History of Present Illness HPI Narrative: 26F nonsmoker at 9 weeks presents with her for recurrence of vomiting, weakness, and fatigue. She denies pain, fever, bloody vomit. She's had no dysuria, frequency or urgency and denies any abdominal or pelvic pain or vaginal bleeding, discharge or leakage of fluids. She has been seen multiple times for hyperemesis and had a PICC in place which had to be pulled a few days ago as it was causing pain and some swelling. The tip was cultured and ultrasound was performed that showed no clot. She had a peripheral line placed but was unable to get access to IV fluids at home. She has not been able to keep anything down. She does have a Zofran pump in place which has been running and continues to use promethazine suppositories but still vomits none the less Related Data Home Medications Medication Instructions Recorded Confirmed ondansetron 4 mg disintegrating 4 mg PO Q8HR PRN 10/17/21 10/25/21 tablet Previous Rx's Medication Instructions Recorded metoclopramide HCl 10 mg tablet 10 mg PO Q6H PRN #20 tab 10/18/21 (Reglan) Allergies Allergy/AdvReac Type Severity Reaction Status Date / Time latex Allergy Verified 10/12/21 21:04 Patient History Medical History Healthy adult Hyperemesis gravidarum Surgical History No significant past surgical history Social History household members: spouse and family Smoking Status: Never smoker Smoking Status: Never smoker alcohol intake frequency: 0-2 drinks per day Substance Use Type: does not use Exam Narrative Exam Narrative: GENERAL: [26] year old patient appears stated age. Well-developed patient, in mild distress. Obviously feels unwell, holding an emesis bag HEAD: Atraumatic. Normocephalic. EYES: Pupils equal round and reactive. Extraocular motions intact. No scleral icterus. No injection or drainage. ENT: Dry mucous membrane Nose without bleeding, purulent drainage. Throat without erythema, tonsillar hypertrophy or exudate. Airway patent. NECK: Trachea midline. Non tender CARDIOVASCULAR: Regular rate and rhythm without murmurs, gallops, or rubs. RESPIRATORY: Clear to auscultation. Breath sounds equal bilaterally. No wheezes, rales, or rhonchi. GASTROINTESTINAL: Abdomen soft, non-tender, nondistended. EXTREMITIES: No edema or joint tenderness. BACK: Nontender without deformity or crepitance. No flank tenderness. NEURO: AOx3. SKIN: No rash or erythema of visible areas Initial Vital Signs Initial Vital Signs: Vital Signs Temperature 97.4 F L 10/25/21 01:29 Pulse Rate 101 H 10/25/21 01:29 Respiratory Rate 18 10/25/21 01:29 Blood Pressure 134/66 10/25/21 01:29 Pulse Oximetry 99 10/25/21 01:29 Course Orders Ordered: ED Orders 10/25/21 01:35 COVID19 -Nasal RAPID/Pre-Proc Stat 10/25/21 01:47 Beta HCG, Quant [HCG Quantitative /Beta subunit] Stat Complete Blood Count AUTO DIFF Stat Comprehensive Metabolic Panel Stat Ketones (Beta-Hydroxybutyrate) Stat Magnesium Stat 10/25/21 12:00 BMP [Basic Metabolic Panel] Stat Lactated Ringer's (Lactated Ringers) 1,000 mls @ 150 mls/hr IV CONT BETTY Metoclopramide HCl (Metoclopramide 10 Mg/2 Ml Inj) 10 mg IV Q6HR PRN PRN Reason: Nausea And Vomiting Discontinued Medications Sodium Chloride (Normal Saline 0.9%) 1,000 mls @ 1,000 mls/hr IV BOLUS ONE Stop: 10/25/21 02:28 Last Infusion: 10/25/21 02:37 Dose: 0 mls/hr Documented by: Admin: 10/25/21 01:41 Dose: 1,000 mls/hr Documented by: FELIPE Metoclopramide HCl (Metoclopramide 10 Mg/2 Ml Inj) 10 mg IV NOW ONE Stop: 10/25/21 01:30 Last Admin: 10/25/21 01:41 Dose: 10 mg Documented by: FELIPE Pantoprazole Sodium (Pantoprazole 40 Mg Vial) 40 mg IV NOW ONE Stop: 10/25/21 01:30 Last Admin: 10/25/21 01:41 Dose: 40 mg Documented by: AUANASTASIYA Vital Signs Vital signs: Vital Signs - 8 hr 10/25/21 01:29 10/25/21 02:36 Temperature 97.4 F L Pulse Rate 101 H 71 Respiratory Rate 18 18 Blood Pressure 134/66 122/66 Pulse Oximetry 99 100 MDM - Nausea/Vomiting/Diarrhea Lab Data Result diagrams: 10/25/21 01:47 10/25/21 01:47 Labs: Lab Results 10/25/21 10/25/21 10/25/21 Range/Units 01:35 01:47 01:47 WBC 8.4 (4.5-11.0) X10^3/uL RBC 3.96 L (4.0-5.2) X10^6/uL Hgb 12.6 (12.0-16.0) g/dL Hct 37.1 (36-46) % MCV 93.8 (80-100) fL MCH 31.9 (26-34) PG MCHC 34.0 (30-36) % RDW 12.4 (11.6-14.8) % Plt Count 233 (150-400) X10^3/uL Neut % (Auto) 78.5 H (50-75) % Lymph % (Auto) 12.7 L (25-40) % [place] % (Auto) 8.3 (3-14) % Eos % (Auto) 0.2 L (2-4) % Baso % (Auto) 0.3 (0-2) % Neut # (Auto) 6600 (7854-0769) /uL Lymph # (Auto) 1100 (0935-4461) /uL [place] # (Auto) 700 (0-900) /uL Eos # (Auto) 0 (0-450) /uL Baso # (Auto) 0 (0-100) /uL Sodium 139 (137-145) mmol/L Potassium 3.5 (3.4-5.1) mmol/L Chloride 109 H (98-107) mmol/L Carbon Dioxide 15 L (22-32) mmol/L BUN 13 (7-17) mg/dL Creatinine 0.54 (0.52-1.04) mg/dL Estimated GFR > 60 (>60) mL/min BUN/Creatinine Ratio 24.1 H (6-22) Glucose 82 (70-100) mg/dL Calcium 9.2 (8.4-10.2) mg/dL Magnesium 1.9 (1.6-2.3) mg/dL Total Bilirubin 2.1 H (0.2-1.3) mg/dL AST 71 H (14-36) IU/L ALT 117 H (<35) IU/L Alkaline Phosphatase 73 (38-126) U/L Total Protein 8.7 H (6.3-8.2) g/dL Albumin 4.5 (3.5-5.0) g/dL Globulin 4.2 H (1.7-4.1) g/dL Albumin/Globulin Ratio 1.1 (1.0-2.8) HCG, Quant 570692 mIU/mL Ketones 2.55 H (<0.27) mmol/L SARS-CoV-2 (PCR) Negative (Negative) Discharge Plan Departure Patient Disposition: Admitted as Observation Clinical Impression: Hyperemesis gravidarum Admit Date/Time: 10/25/21 02:37 Admit Provider: Danica Briggs
[2021-10-25 01:29] VITALS: BP 134/66; PULSE 101; RESP 18; TEMP 36.3; O2SAT 99; BMI 28.3
[2021-10-25] MEDS: SODIUM CHLORIDE 0.9% 1,000 ML 1000 ML IV (01:41)
[2021-10-25] MEDS: METOCLOPRAMIDE 10 MG/2 ML INJ IV ×4 (01:41→21:03)
[2021-10-25] MEDS: PANTOPRAZOLE 40 MG VIAL IV (01:41)
[2021-10-25 01:52] LABS: COVID19 -Nasal RAPID Negative (Negative)
[2021-10-25 01:56] LABS: Add Manual Diff / Slide Review NO; Basophils Absolute Auto 0 /uL (0-100); Basophils Percent Auto 0.3 % (0-2); Eosinophils Absolute Auto 0 /uL (0-450); Eosinophils Percent Auto 0.2 % (2-4); Hematocrit 37.1 % (36-46); Hemoglobin 12.6 g/dL (12.0-16.0); Lymphocytes Absolute Auto 1100 /uL (1100-4500); Lymphocytes Percent Auto 12.7 % (25-40); Mean Corpuscular Hemoglobin 31.9 PG (26-34); Mean Corpuscular Volume 93.8 fL (80-100); Monocytes Absolute Auto 700 /uL (0-900); Monocytes Percent Auto 8.3 % (3-14); Neutrophils Absolute Auto 6600 /uL (1500-7000); Neutrophils Percent Auto 78.5 % (50-75); Platelet Count 233 X10^3/uL (150-400); Red Blood Cell Count 3.96 X10^6/uL (4.0-5.2); Red Cell Distribution Width 12.4 % (11.6-14.8); White Blood Cell Count 8.4 X10^3/uL (4.5-11.0)
[2021-10-25 02:06] LABS: Alanine Aminotransferase 117 IU/L (<35); Albumin 4.5 g/dL (3.5-5.0); Albumin Globulin Ratio 1.1 (1.0-2.8); Alkaline Phosphatase 73 U/L (38-126); Aspartate Aminotransferase 71 IU/L (14-36); BUN Creatinine Ratio 24.1 (6-22); Bilirubin Total 2.1 mg/dL (0.2-1.3); Blood Urea Nitrogen 13 mg/dL (7-17); Calcium 9.2 mg/dL (8.4-10.2); Carbon Dioxide 15 mmol/L (22-32); Chloride 109 mmol/L (98-107); Estimated Glomerular Filt Rate > 60 mL/min (>60); Globulin 4.2 g/dL (1.7-4.1); Glucose 82 mg/dL (70-100); HEMOLYSIS < 15 (0-50); Magnesium 1.9 mg/dL (1.6-2.3); Potassium 3.5 mmol/L (3.4-5.1); Sodium 139 mmol/L (137-145); Total Protein 8.7 g/dL (6.3-8.2)
[2021-10-25 02:09] LABS: Ketones (Beta-Hydroxybutyrate) 2.55 mmol/L (<0.27)
[2021-10-25 02:36] VITALS: BP 122/66; PULSE 71; RESP 18; O2SAT 100
[2021-10-25 02:43] VITALS: BP 120/74; PULSE 82; RESP 18; TEMP 36.1
[2021-10-25 02:49] LABS: HCG Quantitative /Beta subunit 203290 mIU/mL
[2021-10-25 03:00] VITALS: BP 120/74
[2021-10-25] MEDS: LACTATED RINGERS 1,000 ML 150 ML IV ×3 (03:15→20:08)
[2021-10-25 06:30] VITALS: BP 116/65; PULSE 97; RESP 18; TEMP 36.1
--- NOTE | 2021-10-25 06:40 | PC.NURSE ---
02:38 RN at bedside, patient brought into department from ED by wheelchair. Patient states she is feeling a little better. Obtained vitals and performed assessment. IV in right AC flushed with normal saline well. Per transfer orders LR infusion started. Patient is wanting to get some rest. No issues or concerns at this time. 04:00 Patient asleep. 05:00 Patient asleep. 06:30 RN at bedside, patient was asleep when entering the room. She is doing well states she was able to get some good rest. Has been able to eat some ice chips without throwing up. Vitals obtained. IV site right AC patent and infusing LR at 150mL/hr. Patient ambulated to the bathroom well without assist and denied dizziness or headache. No issues or concerns at this time.
--- NOTE | 2021-10-25 09:20 | DI.RAD.S_ITS ---
PROCEDURE: XR CHEST FOR PICC 1V INDICATIONS: line placement COMPARISON: [facility], CR, XR CHEST FOR PICC 1V, 10/17/2021, 17:04. FINDINGS: PICC was placed by the intravenous therapy team from the right side. Fluoroscopic spot film demonstrates the tip of PICC projecting to the area of mid SVC. IMPRESSION: Tip of PICC projects to the area of mid SVC. Approved by: Mt Perez M.D. on 10/25/2021 at 9:58
[2021-10-25] MEDS: PROMETHAZINE 25 MG SUPP PR ×2 (10:56→18:14)
[2021-10-25 14:03] LABS: Alanine Aminotransferase 114 IU/L (<35); BUN Creatinine Ratio 21.6 (6-22); Blood Urea Nitrogen 11 mg/dL (7-17); Calcium 8.8 mg/dL (8.4-10.2); Carbon Dioxide 18 mmol/L (22-32); Chloride 110 mmol/L (98-107); Estimated Glomerular Filt Rate > 60 mL/min (>60); Glucose 86 mg/dL (70-100); HEMOLYSIS < 15 (0-50); Potassium 3.3 mmol/L (3.4-5.1); Sodium 139 mmol/L (137-145)
[2021-10-25 14:11] LABS: Aspartate Aminotransferase 66 IU/L (14-36)
[2021-10-25] MEDS: POTASSIUM CHLORIDE 10 MEQ in SODIUM CHLORIDE 0.9% 100 ML IV ×4 (14:59→18:13)
--- NOTE | 2021-10-25 16:04 | P.HP_ITS ---
History of Present Illness History of Present Illness Date Patient Seen: 10/25/21 Time Patient Seen: 07:45 Chief complaint: THROWING UP Narrative: Patient is a 26-year-old 2 para 1 at 9 weeks gestation with dichorionic/diamniotic twins. She presented to the emergency department last night with 2 days of inability to keep any food or water down. She has a Zofran pump in place which is managed by [facility]. We have initiated IV fluid orders at both [facility] and at home with [facility]. Patient had a low potassium which was replaced in the emergency department. Her liver function tests have bumped a little. She is due to have repeat labs done at 12 noon today. She is able does it take ice chips and Jell-O. She had hyper emesis gravidarum for the entire with her first child. She had a PICC line placed last week and this was removed several days later in the emergency department. Patient History Medical History Healthy adult Hyperemesis gravidarum Surgical History No significant past surgical history Family & Social History Social History: household members spouse,family Safety & Behavioral: Feels Safe in Current Yes Environment Tobacco & Substance use: Smoking Status Never smoker alcohol intake frequency 0-2 drinks per day Substance Use Type does not use Meds Home Medications and Allergies Home Medications Medication Instructions Recorded Confirmed Type ondansetron 4 mg disintegrating 4 mg PO Q8HR PRN 10/17/21 10/25/21 History tablet metoclopramide HCl 10 mg tablet 10 mg PO Q6H PRN #20 tab 10/18/21 10/25/21 Rx (Reglan) Allergies Allergy/AdvReac Type Severity Reaction Status Date / Time latex Allergy Verified 10/12/21 21:04 Exam Vital Signs (past 8 hours): Oxygen Delivery Method Room Air Narrative Exam Narrative: Generally: Patient having emesis during the examination. Lungs: Clear to auscultation bilaterally Cardiovascular: Regular rate and rhythm Extremities: No edema Objective Labs Result Diagrams: 10/25/21 01:47 10/25/21 13:38 Labs: Laboratory Results - last 24 hr 10/25/21 10/25/21 10/25/21 01:35 01:47 01:47 WBC 8.4 RBC 3.96 L Hgb 12.6 Hct 37.1 MCV 93.8 MCH 31.9 MCHC 34.0 RDW 12.4 Plt Count 233 Neut % (Auto) 78.5 H Lymph % (Auto) 12.7 L [place] % (Auto) 8.3 Eos % (Auto) 0.2 L Baso % (Auto) 0.3 Neut # (Auto) 6600 Lymph # (Auto) 1100 [place] # (Auto) 700 Eos # (Auto) 0 Baso # (Auto) 0 Sodium 139 Potassium 3.5 Chloride 109 H Carbon Dioxide 15 L BUN 13 Creatinine 0.54 Estimated GFR > 60 BUN/Creatinine Ratio 24.1 H Glucose 82 Calcium 9.2 Magnesium 1.9 Total Bilirubin 2.1 H AST 71 H ALT 117 H Alkaline Phosphatase 73 Total Protein 8.7 H Albumin 4.5 Globulin 4.2 H Albumin/Globulin Ratio 1.1 HCG, Quant [id number] Ketones 2.55 H SARS-CoV-2 (PCR) Negative 10/25/21 10/25/21 13:38 13:38 WBC RBC Hgb Hct MCV MCH MCHC RDW Plt Count Neut % (Auto) Lymph % (Auto) [place] % (Auto) Eos % (Auto) Baso % (Auto) Neut # (Auto) Lymph # (Auto) [place] # (Auto) Eos # (Auto) Baso # (Auto) Sodium 139 Potassium 3.3 L Chloride 110 H Carbon Dioxide 18 L BUN 11 Creatinine 0.51 L Estimated GFR > 60 BUN/Creatinine Ratio 21.6 Glucose 86 Calcium 8.8 Magnesium Total Bilirubin AST 66 H ALT 114 H Alkaline Phosphatase Total Protein Albumin Globulin Albumin/Globulin Ratio HCG, Quant Ketones SARS-CoV-2 (PCR) Assessment & Plan Assessment & Plan narrative: Assessment: 26-year-old 2 para 1 at 9 weeks gestation with hyperemesis gravidarum Dichorionic/diamniotic twins Zofran pump in place Plan: PICC line placement Repeat labs at noon Contact [facility] regarding home IVF's. Time Spent With Patient Critical Care time: I spent a total of [] minutes of critical care time on this patient's care today; this time is exclusive of procedural time.
[2021-10-25 19:53] VITALS: BP 118/63; PULSE 72; RESP 18; TEMP 36.6
[2021-10-26] MEDS: PROMETHAZINE 25 MG SUPP PR ×3 (00:20→15:09)
[2021-10-26 00:24] VITALS: BP 111/55; PULSE 77; RESP 18; TEMP 36.2
[2021-10-26] MEDS: LACTATED RINGERS 1,000 ML 150 ML IV ×2 (03:14→09:49)
[2021-10-26] MEDS: METOCLOPRAMIDE 10 MG/2 ML INJ IV ×3 (03:15→17:27)
[2021-10-26 04:59] VITALS: BP 107/73; PULSE 93; RESP 16; TEMP 36.2
[2021-10-26 06:04] LABS: Alanine Aminotransferase 95 IU/L (<35); Aspartate Aminotransferase 52 IU/L (14-36); BUN Creatinine Ratio 15.4 (6-22); Blood Urea Nitrogen 6 mg/dL (7-17); Calcium 8.2 mg/dL (8.4-10.2); Carbon Dioxide 19 mmol/L (22-32); Chloride 108 mmol/L (98-107); Estimated Glomerular Filt Rate > 60 mL/min (>60); Glucose 79 mg/dL (70-100); HEMOLYSIS < 15 (0-50); Potassium 3.3 mmol/L (3.4-5.1); Sodium 136 mmol/L (137-145)
--- NOTE | 2021-10-26 08:00 | DI.US.S_ITS ---
PROCEDURE: US OB <= 14 WEEKS FETUS INDICATIONS: TWINS; HYPEREMESIS OUTSIDE/PRIOR DATING DATA: Last menstrual period (LMP): 08/21/2021 LMP-based estimated date of delivery (BRITTANY): 05/28/2022 First dating scan (date and location): 10/17/2021 at [facility] Estimated date of delivery (BRITTANY) from first dating scan: 06/08/2022 The calculations are made using the ultrasound BRITTANY of 06/08/2022. TECHNIQUE: Real-time scanning was performed of the fetuses and maternal pelvic organs, with image documentation. Endovaginal scanning: Performed for better visualization of the fetuses and maternal adnexal structures. COMPARISON: [facility], , OB <= 14 WEEKS FETUS, 10/17/2021, 7:47. FINDINGS: General: An intrauterine diamniotic/ dichorionic twin is present, as evidenced by separate placental sites and/or intervening membrane thickness of greater than 2 mm at this early gestational age. Embryo A: [place]-rump length is 1.8 cm, consistent with an estimated gestational age of 8 weeks 2 days. Heart rate: 168 beats per minute Embryo B: [place]-rump length is 1.9 cm, consistent with an estimated gestational age of 8 weeks 3 days. Heart rate: 178 beats per minute Maternal organs: The ovaries are not visualized. IMPRESSION: Intrauterine twin redemonstrated with interval growth. No acute sonographic abnormality. We strive to produce accurate, complete, and clear reports of imaging services. To assist us in improving patient care, this report was composed using standard report templates and voice recognition software. Therefore, it may contain abnormal punctuation, insertions and/or omissions. Occasional wrong-word or sound-alike substitutions may occur. Though we review the report and make efforts to correct it, we do recommend that the report be read carefully in proper context to recognize any text inaccuracies. Dictated by: Samson Harris M.D. on 10/26/2021 at 7:55 Approved by: Samson Harris M.D. on 10/26/2021 at 8:01
--- NOTE | 2021-10-26 08:17 | PM.PN.1 ---
Subjective Subjective Date Patient Seen: 10/26/21 Time Patient Seen: 08:17 Interval history: Patient is not feeling much better than yesterday. She has not tried to eat yet today Exam Vital Signs (past 8 hours): - 10/26/21 00:24 10/26/21 04:59 Temperature 97.2 F L 97.2 F L Pulse Rate 77 93 H Respiratory Rate 18 16 Blood Pressure 111/55 L 107/73 Oxygen Delivery Method Room Air Objective Labs Result Diagrams: 10/25/21 01:47 10/26/21 05:40 Labs: Laboratory Results - last 24 hr 10/25/21 10/25/21 10/26/21 13:38 13:38 05:40 Sodium 139 Potassium 3.3 L Cancelled Chloride 110 H Carbon Dioxide 18 L BUN 11 Creatinine 0.51 L Estimated GFR > 60 BUN/Creatinine Ratio 21.6 Glucose 86 Calcium 8.8 AST 66 H ALT 114 H 10/26/21 05:40 Sodium 136 L Potassium 3.3 L Chloride 108 H Carbon Dioxide 19 L BUN 6 L Creatinine 0.39 L Estimated GFR > 60 BUN/Creatinine Ratio 15.4 Glucose 79 Calcium 8.2 L AST 52 H ALT 95 H PFSH Medical History Healthy adult Hyperemesis gravidarum Surgical History No significant past surgical history Social History household members: spouse and family Smoking Status: Never smoker Assessment & Plan Assessment and plan (1) First trimester : Status: Acute (2) Hyperemesis gravidarum: Status: Acute (3) Low serum potassium level: Status: Acute Plan Patient is going to try to eat. Will give her additional potassium IV. If she is able to keep anything down she will be discharged home. Time Spent With Patient Critical Care time: I spent a total of [] minutes of critical care time on this patient's care today; this time is exclusive of procedural time.
[2021-10-26] MEDS: POTASSIUM CHLORIDE 10 MEQ in SODIUM CHLORIDE 0.9% 100 ML IV ×4 (09:17→12:28)
--- NOTE | 2021-10-26 15:23 | P.DS_ITS ---
History of Present Illness History of Present Illness Date Patient Seen: 10/26/21 Time Patient Seen: 15:23 Chief complaint: THROWING UP Narrative: Patient is a 2 para 1 9 week gestation with twin gestation admitted for hyperemesis and low potassium Discharge Providers Provider Date of admission: 10/25/21 02:37 Discharge Date: 10/26/21 Primary care physician: JAZ Pham Discharge provider: Lovely Velasquez MD Summary Status at Discharge Cognitive/behavioral status at discharge: oriented Functional status at discharge: independent ambulation Overall status at discharge: patient is progressing back to baseline Time Spent with Patient Time spent: Less than 30 minutes Exam Vital Signs (past 8 hours): Blood pressure 119/73, pulse of 81, temperature 37.3? Oxygen Delivery Method Room Air Narrative Exam Narrative: Abdomen is soft, nontender. PICC line appears intact without evidence of infection. Objective Labs Result Diagrams: 10/25/21 01:47 10/26/21 05:40 Labs: Laboratory Results - last 24 hr 10/26/21 10/26/21 05:40 05:40 Sodium 136 L Potassium Cancelled 3.3 L Chloride 108 H Carbon Dioxide 19 L BUN 6 L Creatinine 0.39 L Estimated GFR > 60 BUN/Creatinine Ratio 15.4 Glucose 79 Calcium 8.2 L AST 52 H ALT 95 H PFSH Medical History Healthy adult Hyperemesis gravidarum Surgical History No significant past surgical history Social History household members: spouse and family Smoking Status: Never smoker Discharge Assessment & Plan Assessment and Plan Assessment: Hyperemesis Plan of Treatment: Patient is feeling slightly better although still had an episode of emesis t geetha. She received 40 mEq of potassium today for potassium of 3.3. Her AST and ALT are trending downward at 52 and 95. The [facility] company will be at her house tomorrow to increase her Zof ran pump dose. Patient has a telehealth appointment scheduled with Dr. Briggs in 2 days. Discharge Plan Discharge Plan Patient Disposition: Home Provider Discharge Comment: Patient has appointment tomorrow with infusion of [facility] for adjustment of her Zofran pump We will try to arrange home IV therapy or have patient come in to infusion clinic. Discharge orders & Medications Prescriptions: Continued metoclopramide HCl [Reglan] 10 mg tablet 10 mg PO Q6H PRN (Reason: nausea and vomiting) Qty: 20 2RF Discontinued ondansetron 4 mg tablet,disintegrating 4 mg PO Q8HR PRN (Reason: Nausea) 0RF Label Comments: DISSOLVE ONE TABLET IN MOUTH EVERY 8 HOURS NEEDED FOR NAUSEA AND VOMITING Follow up/Referrals: Danica Briggs MD [Physician] - As previously scheduled Sandie Johansen ARNP [Primary Care Provider] - Diet/Activity/Treatments Diet: Diet as Tolerated Skin/Wound/Dressing Care Dressing: Leave dressing on PICC line Discharge Data Primary Care Provider: Sandie Johansen Attending Provider: Danica Briggs
[2021-10-26 17:49] VITALS: BP 116/76; PULSE 91; RESP 16; TEMP 36.3
== END 2021-10-26 17:47 | disposition home or self-care (01) ==
LOC: ED 01:23 → LABOR 02:39
PROVIDERS: Admitting Provider Obstetrics & Gynecology; Emergency Provider Emergency Medicine; PCP Nurse Practitioner Family; Visit Provider Obstetrics & Gynecology
DX: O21.0 Mild hyperemesis gravidarum (principal); E87.6 Hypokalemia; Z3A.09 9 weeks gestation of pregnancy; R19.7 Diarrhea, unspecified; Z20.822 Contact with and (suspected) exposure to COVID-19
CPT/HCPCS: 36415; 36573; 59025; 59050; 76801; 76817; 80048; 80053; 82009; 83735; 84450; 84460; 84702; 85025; 87635; 96360; 99283; C9803; G0378; C9113; J2765; J3480

== ENCOUNTER 2021-10-29 19:10 | Observation (INO) | payer OTHER, MEDICAID, SELFPAY ==
[2021-10-29 20:14] LABS: Add Manual Diff / Slide Review NO; Basophils Absolute Auto 100 /uL (0-100); Basophils Percent Auto 0.7 % (0-2); Eosinophils Absolute Auto 0 /uL (0-450); Eosinophils Percent Auto 0.3 % (2-4); Hematocrit 35.4 % (36-46); Hemoglobin 11.9 g/dL (12.0-16.0); Lymphocytes Absolute Auto 800 /uL (1100-4500); Mean Corpuscular HGB Conc 33.7 % (30-36); Mean Corpuscular Hemoglobin 31.7 PG (26-34); Mean Corpuscular Volume 94.2 fL (80-100); Monocytes Absolute Auto 700 /uL (0-900); Monocytes Percent Auto 8.4 % (3-14); Neutrophils Absolute Auto 6900 /uL (1500-7000); Neutrophils Percent Auto 81.6 % (50-75); Platelet Count 208 X10^3/uL (150-400); Red Blood Cell Count 3.76 X10^6/uL (4.0-5.2); Red Cell Distribution Width 12.4 % (11.6-14.8); White Blood Cell Count 8.5 X10^3/uL (4.5-11.0)
[2021-10-29 20:15] VITALS: BP 113/65; PULSE 84; RESP 18; TEMP 36.8; O2SAT 98
[2021-10-29] MEDS: DEXTROSE 5%-LACTATED RINGERS 1,000 ML 125 ML IV (20:30)
[2021-10-29 20:32] LABS: Alanine Aminotransferase 186 IU/L (<35); Albumin 4.2 g/dL (3.5-5.0); Albumin Globulin Ratio 1.1 (1.0-2.8); Alkaline Phosphatase 78 U/L (38-126); Aspartate Aminotransferase 87 IU/L (14-36); BUN Creatinine Ratio 12.8 (6-22); Bilirubin Total 1.1 mg/dL (0.2-1.3); Blood Urea Nitrogen 5 mg/dL (7-17); Calcium 9.2 mg/dL (8.4-10.2); Carbon Dioxide 16 mmol/L (22-32); Chloride 105 mmol/L (98-107); Estimated Glomerular Filt Rate > 60 mL/min (>60); Globulin 3.9 g/dL (1.7-4.1); Glucose 70 mg/dL (70-100); HEMOLYSIS < 15 (0-50); Magnesium 1.9 mg/dL (1.6-2.3); Potassium 3.3 mmol/L (3.4-5.1); Sodium 134 mmol/L (137-145); Total Protein 8.1 g/dL (6.3-8.2)
--- NOTE | 2021-10-29 20:37 | P.HPOB_ITS ---
History of Present Illness History of Present Illness Reason for admission: early complication Narrative: Jeannine Hall is a 26 year old female admitted for hyperemesis gravidarum at 9 weeks 6 days. Patient has been to the emergency room and was hospitalized multiple times in the last month. She has a PICC line in. She has been getting IV hydration at home. Her Zofran pump stop working. She has been using Phenergan suppositories. [facility] Medical History (Updated 10/29/21 @ 20:56 by Lovely Velasquez MD) Eye injury Healthy adult Hyperemesis gravidarum Intrinsic atopic dermatitis Surgical History (Updated 10/28/21 @ 15:24 by Paula Smith, RN) History of tonsillectomy Family History (Updated 10/28/21 @ 15:26 by Paula Smith, ELIZABETH) Sister Borderline diabetes Social History marital status: unmarried,living together number of children: 1 household members: spouse and family lives independently: Yes housing: house pets and animals: Yes (Dog - aware Toxoplasmosis) education level: high school occupational status: unemployed (emergency leave) and previously employed current occupational exposures/hazards: No special lexa needs: No seatbelt use: always water heater temp set < 120 deg: Yes (will check) working smoke detector in home: Yes fire extinguisher in home: Yes carbon monox detector in home: Yes firearms in home: Yes firearms unloaded and locked: Yes do you feel safe at home: Yes Smoking Status: Never smoker second hand exposure: No alcohol intake: former substance use type: does not use during the past year weight has: remained stable well-balanced diet: daily or most days daily servings fruits/ve-4 caffeine: Yes (200mg limit) Type(s) of exercise: walking Meds Home Medications and Allergies Home Medications Medication Instructions Recorded Confirmed Type metoclopramide HCl 10 mg tablet 10 mg PO Q6H PRN #20 tab 10/18/21 10/25/21 Rx (Reglan) promethazine 25 mg rectal 25 mg [place] Q6HR PRN #28 ea 10/26/21 Rx suppository Allergies Allergy/AdvReac Type Severity Reaction Status Date / Time latex Allergy Verified 10/28/21 15:22 erythromycin base AdvReac Intermediate Verified 10/28/21 15:22 Review of Systems Review of Systems Narrative: Patient came in because she was continued to have severe nausea and vomiting. She has not been able to keep anything down. She has been getting IV fluids, promethazine suppositories and Zofran pump without relief. She has a minor cold. No fevers. She has some mild lower abdominal discomfort. It is been sometime since she has had a bowel movement. She is urinating well. No vaginal bleeding. Exam Vital Signs (past 8 hours): - 10/29/21 20:15 Temperature 98.3 F Pulse Rate 84 Respiratory Rate 18 Blood Pressure 113/65 Pulse Oximetry 98 Narrative Exam Narrative: HEENT exam within normal limits. PICC line in her right arm. are clear to auscultation percussion. Heart is regular rate and rhythm no S3-S4 murmurs. Abdomen is soft, with no rebound tenderness. Ultrasound shows viable twin gestation with normal cardiac activity of both. Extremities without edema and nontender. Assessment & Plan Assessment and plan (1) Low serum potassium level: Status: Acute (2) 9 weeks gestation of : Status: Acute (3) Twins, 1st trimester screening: Status: Acute (4) Hyperemesis gravidarum: Status: Acute Assessment & Plan narrative: Patient with hyperemesis gravidarum with twin . Patient has not been able to keep anything down since she was discharged from the hospital 3 days ago. She comes in for IV steroids as the only next step to try to help with her nausea. Patient does have low potassium so will give her potassium. Will give her IV thymine and multivitamins. COVID-19 COVID-19 status: Result pending Time Spent With Patient Critical Care time: I spent a total of [] minutes of critical care time on this patient's care today; this time is exclusive of procedural time.
[2021-10-29] MEDS: methylPREDNISolone 125 MG/2 ML VIAL 16 MG IV (20:43)
[2021-10-29] MEDS: PROMETHAZINE 25 MG SUPP PR (20:44)
[2021-10-29 20:48] LABS: COVID19 -Nasal RAPID Negative (Negative)
[2021-10-29] MEDS: POTASSIUM CHLORIDE IN WATER 10 MEQ/100 ML PIGGYBACK 100 MEQ IV ×2 (22:11→23:31)
[2021-10-29 22:15] VITALS: BP 113/65
[2021-10-30] MEDS: POTASSIUM CHLORIDE IN WATER 10 MEQ/100 ML PIGGYBACK 100 MEQ IV ×4 (01:04→05:02)
[2021-10-30 01:09] VITALS: BP 123/83; PULSE 99; RESP 18; TEMP 36.8; O2SAT 98
--- NOTE | 2021-10-30 01:52 | PC.NURSE ---
This RN completed pt head to toe assessment. Lungs clear in all quadrants, pt denies SOB. Heart rate slightly elevated. Pt states slight discomfort in lower abdomen. Pt states urinating regularly, but states no BM in a while. Pt nauseous with frequent emesis. Pt in bed resting. PICC line in place in right upper arm. IVF running per orders. Zofran pump running.
[2021-10-30] MEDS: DEXTROSE 5%-LACTATED RINGERS 1,000 ML 125 ML IV ×3 (03:33→21:30)
[2021-10-30] MEDS: PROMETHAZINE 25 MG SUPP PR ×2 (03:56→13:34)
[2021-10-30 05:00] VITALS: BP 113/76; PULSE 84; RESP 16; TEMP 36.7; O2SAT 99
[2021-10-30] MEDS: methylPREDNISolone 125 MG/2 ML VIAL 16 MG IV ×4 (05:02→22:29)
--- NOTE | 2021-10-30 07:55 | PC.NURSE ---
Upon initial assessment, patient alert/awake, appearing tired. Some gagging/wretching noted. Client has some audible nasal congestion. Chest sounds clear. BP 117/77, P 84, T 98.0, R 16. IV D5LR ~450 LTC infusing @125cc/hour. Requested jello for breakfast. Denies pain. Will continue to monitor. Dr Velasquez on unit to assess. Waiting for IV multivite from pharmacy. Jett Perez
--- NOTE | 2021-10-30 08:07 | P.PN_ITS ---
Subjective Subjective Date Patient Seen: 10/30/21 Time Patient Seen: 08:07 Interval history: Patient and to use to have significant nausea vomiting. No vaginal bleeding. Some mild abdominal discomfort. Exam Vital Signs (past 8 hours): - 10/30/21 01:09 10/30/21 05:00 Temperature 98.3 F 98.1 F Pulse Rate 99 H 84 Respiratory Rate 18 16 Blood Pressure 123/83 113/76 Pulse Oximetry 98 99 Narrative Exam Narrative: Patient's abdomen is soft, trace tender. Objective Labs Labs: Laboratory Results - last 24 hr 10/29/21 20:25 SARS-CoV-2 (PCR) Negative FOR[facility], [facility] Medical History (Updated 10/30/21 @ 08:11 by Lovely Velasquez MD) Eye injury Healthy adult Hyperemesis gravidarum Intrinsic atopic dermatitis Surgical History (Updated 10/28/21 @ 15:24 by Paula Smith, RN) History of tonsillectomy Family History (Updated 10/28/21 @ 15:26 by Paula Smiht, RN) Sister Borderline diabetes Social History marital status: unmarried,living together number of children: 1 household members: spouse and family lives independently: Yes housing: house pets and animals: Yes (Dog - aware Toxoplasmosis) education level: high school occupational status: unemployed (emergency leave) and previously employed current occupational exposures/hazards: No special lexa needs: No seatbelt use: always water heater temp set < 120 deg: Yes (will check) working smoke detector in home: Yes fire extinguisher in home: Yes carbon monox detector in home: Yes firearms in home: Yes firearms unloaded and locked: Yes do you feel safe at home: Yes Smoking Status: Never smoker second hand exposure: No alcohol intake: former substance use type: does not use during the past year weight has: remained stable well-balanced diet: daily or most days daily servings fruits/ve-4 caffeine: Yes (200mg limit) Type(s) of exercise: walking Assessment & Plan Assessment and plan (1) Low serum potassium level: Status: Acute (2) Hyperemesis gravidarum: Status: Acute (3) 10 weeks gestation of : Status: Acute (4) Dichorionic diamniotic twin gestation: Qualifiers: Trimester: first trimester Qualified Code(s): O30.041 - Twin , dichorionic/diamniotic, first trimester Status: Acute Assessment & Plan narrative: Hyperemesis in 10 week gestation twins. Continue IV fluids, recheck electrolytes, multivitamin infusion today. Continue to steroid infusions. Time Spent With Patient Time with patient: less than 30 minutes Critical Care time: I spent a total of [] minutes of critical care time on this patient's care today; this time is exclusive of procedural time.
[2021-10-30 09:23] LABS: Calcium 8.8 mg/dL (8.4-10.2); Carbon Dioxide 21 mmol/L (22-32); Chloride 105 mmol/L (98-107); Estimated Glomerular Filt Rate > 60 mL/min (>60); Glucose 135 mg/dL (70-100); HEMOLYSIS < 15 (0-50); Potassium 3.8 mmol/L (3.4-5.1); Sodium 134 mmol/L (137-145)
[2021-10-30 09:24] LABS: BUN Creatinine Ratio 6.7 (6-22); Blood Urea Nitrogen 2 mg/dL (7-17)
[2021-10-30] MEDS: THIAMINE 100 MG in SODIUM CHLORIDE 0.9% 100 ML 404 ML IV (10:41)
[2021-10-30] MEDS: SODIUM CHLORIDE IV (12:00)
[2021-10-30] MEDS: MULTIVITAMIN IV (12:00)
--- NOTE | 2021-10-30 13:36 | PC.NURSE ---
Patient states she feels a little hungry, toast and apple juice given per patient request. Sleeping off and on. Up to bathroom independently with IV pole. D5LR infusing at 125cc/hour. Multivite/thiamine IV given as per order. Vitals 108/73, P 81, T 98.2, R 16. Denies pain at this time.
--- NOTE | 2021-10-30 16:41 | PC.NURSE ---
patient starting to feel better. requesting toast/mashed potatoes. Vitals t 98.6, p. 77, bp 111/74
--- NOTE | 2021-10-30 17:27 | P.PN_ITS ---
Subjective Subjective Date Patient Seen: 10/30/21 Time Patient Seen: 17:27 Interval history: Patient is feeling better. She has a slight appetite. She is keeping small bites of food down. Exam Vital Signs (past 8 hours): Blood pressure 111/74, pulse 77, temperature 98.6? Objective Labs Result Diagrams: 10/29/21 19:42 10/30/21 09:00 Labs: Laboratory Results - last 24 hr 10/29/21 10/29/21 10/29/21 19:42 19:42 20:25 WBC 8.5 RBC 3.76 L Hgb 11.9 L Hct 35.4 L MCV 94.2 MCH 31.7 MCHC 33.7 RDW 12.4 Plt Count 208 Neut % (Auto) 81.6 H Lymph % (Auto) 9.0 L [place] % (Auto) 8.4 Eos % (Auto) 0.3 L Baso % (Auto) 0.7 Neut # (Auto) 6900 Lymph # (Auto) 800 L [place] # (Auto) 700 Eos # (Auto) 0 Baso # (Auto) 100 Sodium 134 L Potassium 3.3 L Chloride 105 Carbon Dioxide 16 L BUN 5 L Creatinine 0.39 L Estimated GFR > 60 BUN/Creatinine Ratio 12.8 Glucose 70 Calcium 9.2 Magnesium 1.9 Total Bilirubin 1.1 AST 87 H ALT 186 H Alkaline Phosphatase 78 Total Protein 8.1 Albumin 4.2 Globulin 3.9 Albumin/Globulin Ratio 1.1 SARS-CoV-2 (PCR) Negative 10/30/21 09:00 WBC RBC Hgb Hct MCV MCH MCHC RDW Plt Count Neut % (Auto) Lymph % (Auto) [place] % (Auto) Eos % (Auto) Baso % (Auto) Neut # (Auto) Lymph # (Auto) [place] # (Auto) Eos # (Auto) Baso # (Auto) Sodium 134 L Potassium 3.8 Chloride 105 Carbon Dioxide 21 L BUN 2 L Creatinine 0.30 L Estimated GFR > 60 BUN/Creatinine Ratio 6.7 Glucose 135 H Calcium 8.8 Magnesium Total Bilirubin AST ALT Alkaline Phosphatase Total Protein Albumin Globulin Albumin/Globulin Ratio SARS-CoV-2 (PCR) [facility] Medical History (Updated 10/30/21 @ 08:11 by Lovely Velasquez MD) Eye injury Healthy adult Hyperemesis gravidarum Intrinsic atopic dermatitis Surgical History (Updated 10/28/21 @ 15:24 by Paula Smith RN) History of tonsillectomy Family History (Updated 10/28/21 @ 15:26 by Paula Smith RN) Sister Borderline diabetes Social History marital status: unmarried,living together number of children: 1 household members: spouse and family lives independently: Yes housing: house pets and animals: Yes (Dog - aware Toxoplasmosis) education level: high school occupational status: unemployed (emergency leave) and previously employed current occupational exposures/hazards: No special lexa needs: No seatbelt use: always water heater temp set < 120 deg: Yes (will check) working smoke detector in home: Yes fire extinguisher in home: Yes carbon monox detector in home: Yes firearms in home: Yes firearms unloaded and locked: Yes do you feel safe at home: Yes Smoking Status: Never smoker second hand exposure: No alcohol intake: former substance use type: does not use during the past year weight has: remained stable well-balanced diet: daily or most days daily servings fruits/ve-4 caffeine: Yes (200mg limit) Type(s) of exercise: walking Assessment & Plan Assessment and plan (1) Dichorionic diamniotic twin gestation: Qualifiers: Trimester: first trimester Qualified Code(s): O30.041 - Twin , dichorionic/diamniotic, first trimester Status: Acute (2) 10 weeks gestation of : Status: Acute (3) Hyperemesis gravidarum: Status: Acute Assessment & Plan narrative: Patient seems to be improving. Potassium was normal this morning. Will repeat CMP in a.m. continue IV steroids for no Time Spent With Patient Critical Care time: I spent a total of [] minutes of critical care time on this patient's care today; this time is exclusive of procedural time.
[2021-10-30 20:45] VITALS: BP 117/76; PULSE 82; RESP 18; TEMP 37; O2SAT 99
--- NOTE | 2021-10-30 20:48 | PC.NURSE ---
10/30/21 @2014 OOB, BRP, void s difficulty. Gait steady. Pt in good spirits, color pink. Pt remarked that she feels better and that she ate 2 portions of mashed potatoes, half a grilled cheese sandwich, and her jello. No n/v at this time. LCTA bilat, HR reg wnl. PICC site right upper arm dressing dry and intact, no s/s redness, tenderness, and infusing well via pump. D5LR at 125ml/hr. Zofran infusing IV via locked pump also.
--- NOTE | 2021-10-30 21:33 | PC.NURSE ---
10/30/21 @ 2130 D5LR new liter infusing. Pt oob, brp. Pt to change zofran infusion bag within next half hour. Pt to call for help with threading through clothing. Pt remains free of N/V at this time.
--- NOTE | 2021-10-30 22:36 | PC.NURSE ---
10/30/21 @ 0022 Methylprednisolone ivp given. Pt remains free of n/v. Eating applesauce and sandwich now.
[2021-10-31] VITALS: BP 112/70; PULSE 81; RESP 16; TEMP 36.9; O2SAT 99
--- NOTE | 2021-10-31 01:12 | PC.NURSE ---
10/31/21 at 0030 Pt's arrived, spending night. Pt retained food. No N/V. Also had cheesecake brought from home.
--- NOTE | 2021-10-31 05:07 | PM.PN.1 ---
Subjective Subjective Date Patient Seen: 10/31/21 Time Patient Seen: 05:09 Interval history: Patient's nausea is much improved. No abdominal pain. Exam Vital Signs (past 8 hours): - 10/31/21 00:00 Temperature 98.4 F Pulse Rate 81 Respiratory Rate 16 Blood Pressure 112/70 Pulse Oximetry 99 Narrative Exam Narrative: Abdomen is soft, nontender. Extremities without edema and nontender. Ultrasound both fetuses positive cardiac activity Objective Labs Result Diagrams: 10/29/21 19:42 10/30/21 09:00 Labs: Laboratory Results - last 24 hr 10/29/21 10/29/21 10/30/21 19:42 19:42 09:00 WBC 8.5 RBC 3.76 L Hgb 11.9 L Hct 35.4 L MCV 94.2 MCH 31.7 MCHC 33.7 RDW 12.4 Plt Count 208 Neut % (Auto) 81.6 H Lymph % (Auto) 9.0 L [place] % (Auto) 8.4 Eos % (Auto) 0.3 L Baso % (Auto) 0.7 Neut # (Auto) 6900 Lymph # (Auto) 800 L [place] # (Auto) 700 Eos # (Auto) 0 Baso # (Auto) 100 Sodium 134 L 134 L Potassium 3.3 L 3.8 Chloride 105 105 Carbon Dioxide 16 L 21 L BUN 5 L 2 L Creatinine 0.39 L 0.30 L Estimated GFR > 60 > 60 BUN/Creatinine Ratio 12.8 6.7 Glucose 70 135 H Calcium 9.2 8.8 Magnesium 1.9 Total Bilirubin 1.1 AST 87 H ALT 186 H Alkaline Phosphatase 78 Total Protein 8.1 Albumin 4.2 Globulin 3.9 Albumin/Globulin Ratio 1.1 [facility] Medical History (Updated 10/30/21 @ 08:11 by Lovely Velasquez MD) Eye injury Healthy adult Hyperemesis gravidarum Intrinsic atopic dermatitis Surgical History (Updated 10/28/21 @ 15:24 by Paula Smith RN) History of tonsillectomy Family History (Updated 10/28/21 @ 15:26 by Paula Smith RN) Sister Borderline diabetes Social History marital status: unmarried,living together number of children: 1 household members: spouse and family lives independently: Yes housing: house pets and animals: Yes (Dog - aware Toxoplasmosis) education level: high school occupational status: unemployed (emergency leave) and previously employed current occupational exposures/hazards: No special lexa needs: No seatbelt use: always water heater temp set < 120 deg: Yes (will check) working smoke detector in home: Yes fire extinguisher in home: Yes carbon monox detector in home: Yes firearms in home: Yes firearms unloaded and locked: Yes do you feel safe at home: Yes Smoking Status: Never smoker second hand exposure: No alcohol intake: former substance use type: does not use during the past year weight has: remained stable well-balanced diet: daily or most days daily servings fruits/ve-4 caffeine: Yes (200mg limit) Type(s) of exercise: walking Assessment & Plan Assessment and plan (1) Dichorionic diamniotic twin gestation: Qualifiers: Trimester: first trimester Qualified Code(s): O30.041 - Twin , dichorionic/diamniotic, first trimester Status: Acute (2) 10 weeks gestation of : Status: Acute (3) Hyperemesis gravidarum: Status: Acute Assessment & Plan narrative: Patient is improving significantly. Recheck CMP this morning. When appropriate switch to oral prednisone. 40 mg once followed by 20 mg for 3 days, followed by 10 mg per day for 3 days then 5 mg per day for 7 days. Time Spent With Patient Time with patient: less than 30 minutes Critical Care time: I spent a total of [] minutes of critical care time on this patient's care today; this time is exclusive of procedural time.
[2021-10-31] MEDS: PROMETHAZINE 25 MG SUPP PR ×2 (05:26→13:47)
[2021-10-31] MEDS: DEXTROSE 5%-LACTATED RINGERS 1,000 ML 125 ML IV ×3 (05:27→21:06)
[2021-10-31 05:36] LABS: Alanine Aminotransferase 211 IU/L (<35); Albumin 3.7 g/dL (3.5-5.0); Alkaline Phosphatase 71 U/L (38-126); Aspartate Aminotransferase 95 IU/L (14-36); BUN Creatinine Ratio 10.3 (6-22); Bilirubin Total 0.7 mg/dL (0.2-1.3); Blood Urea Nitrogen 3 mg/dL (7-17); Calcium 8.7 mg/dL (8.4-10.2); Carbon Dioxide 23 mmol/L (22-32); Chloride 103 mmol/L (98-107); Estimated Glomerular Filt Rate > 60 mL/min (>60); Globulin 3.6 g/dL (1.7-4.1); Glucose 130 mg/dL (70-100); HEMOLYSIS < 15 (0-50); Potassium 3.5 mmol/L (3.4-5.1); Sodium 136 mmol/L (137-145); Total Protein 7.3 g/dL (6.3-8.2)
--- NOTE | 2021-10-31 07:35 | PC.NURSE ---
10/31/21 @ 0735 SBAR report given to Isabela JOHNSON.
[2021-10-31] MEDS: methylPREDNISolone 125 MG/2 ML VIAL 16 MG IV (08:13)
--- NOTE | 2021-10-31 08:22 | PC.NURSE ---
pt resting comfortably in bed. 16mg IV methylprednisone given per orders. D5LR infusing into PICC line at 125mls/hr. Pt has zofran pump infusing as well. at bedside and supportive. Call light w/in reach
[2021-10-31 08:24] VITALS: BP 110/69; PULSE 73; RESP 16; TEMP 36.9
[2021-10-31] MEDS: THIAMINE 100 MG in SODIUM CHLORIDE 0.9% 100 ML 404 ML IV (08:50)
--- NOTE | 2021-10-31 11:00 | PC.NURSE ---
pt just finishing using the bathroom. States she was able to rest for the last couple of hours w/ no N/V.
--- NOTE | 2021-10-31 12:08 | PC.NURSE ---
lunch brought into room, pt doing well. She denies the need for promethazine suppository. She is requesting to switch to PO methylprednisone for next dose to assure she can tolerate it before possible discharge this evening. Will consult .
--- NOTE | 2021-10-31 14:11 | PM.PN.1 ---
Subjective Subjective Date Patient Seen: 10/31/21 Time Patient Seen: 14:11 Interval history: Patient is tolerating regular diet although slightly nauseated. She requests remaining on the unit until she is sure with the oral prednisone that she is still doing well Exam Vital Signs (past 8 hours): - 10/31/21 08:24 Temperature 98.4 F Pulse Rate 73 Respiratory Rate 16 Blood Pressure 110/69 Objective Labs Result Diagrams: 10/29/21 19:42 10/31/21 05:05 Labs: Laboratory Results - last 24 hr 10/31/21 05:05 Sodium 136 L Potassium 3.5 Chloride 103 Carbon Dioxide 23 BUN 3 L Creatinine 0.29 L Estimated GFR > 60 BUN/Creatinine Ratio 10.3 Glucose 130 H Calcium 8.7 Total Bilirubin 0.7 AST 95 H ALT 211 H Alkaline Phosphatase 71 Total Protein 7.3 Albumin 3.7 Globulin 3.6 Albumin/Globulin Ratio 1.0 PFSH Medical History (Updated 10/30/21 @ 08:11 by Lovely Velasquez MD) Eye injury Healthy adult Hyperemesis gravidarum Intrinsic atopic dermatitis Surgical History (Updated 10/28/21 @ 15:24 by Paula Smith RN) History of tonsillectomy Family History (Updated 10/28/21 @ 15:26 by Paula Smith RN) Sister Borderline diabetes Social History marital status: unmarried,living together number of children: 1 household members: spouse and family lives independently: Yes housing: house pets and animals: Yes (Dog - aware Toxoplasmosis) education level: high school occupational status: unemployed (emergency leave) and previously employed current occupational exposures/hazards: No special lexa needs: No seatbelt use: always water heater temp set < 120 deg: Yes (will check) working smoke detector in home: Yes fire extinguisher in home: Yes carbon monox detector in home: Yes firearms in home: Yes firearms unloaded and locked: Yes do you feel safe at home: Yes Smoking Status: Never smoker second hand exposure: No alcohol intake: former substance use type: does not use during the past year weight has: remained stable well-balanced diet: daily or most days daily servings fruits/ve-4 caffeine: Yes (200mg limit) Type(s) of exercise: walking Assessment & Plan Assessment and plan (1) Dichorionic diamniotic twin gestation: Qualifiers: Trimester: first trimester Qualified Code(s): O30.041 - Twin , dichorionic/diamniotic, first trimester Status: Acute (2) 10 weeks gestation of : Status: Acute (3) Hyperemesis gravidarum: Status: Acute Assessment & Plan narrative: Patient is doing better with her hyperemesis. Will switch to oral prednisone. Home tomorrow if continuing to do well. Time Spent With Patient Time with patient: less than 30 minutes Critical Care time: I spent a total of [] minutes of critical care time on this patient's care today; this time is exclusive of procedural time.
[2021-10-31 16:30] VITALS: BP 123/76; PULSE 90; RESP 16; TEMP 36.9
[2021-10-31] MEDS: predniSONE 20 MG TABLET 40 MG PO (16:30)
--- NOTE | 2021-10-31 16:30 | PC.NURSE ---
1630: pt resting in bed, 40mg PO prednisone given per MD orders. 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
[2021-10-31 20:54] VITALS: PULSE 82; RESP 18; TEMP 37
--- NOTE | 2021-10-31 20:56 | PC.NURSE ---
10/31/21 VSS, afebrile. OOB prn, voiding well. LCTA bilat, HR reg, BS wnl, no edema. Pt has had no n/v since this morning. Eating and drinking well. Skin color and turgor wnl. PICC line to right arm, patent, drsg dry/intact. D5LR at 125ml/hr and Zofran infusing well.
[2021-11-01 00:37] VITALS: BP 102/68; PULSE 78; RESP 16; TEMP 36.7
[2021-11-01] MEDS: PROMETHAZINE 25 MG SUPP PR (01:20)
--- NOTE | 2021-11-01 01:27 | PC.NURSE ---
11/01/21 @ 0120 Pt c/o slight nausea, asked if she was going to get her steroid IV tonight. Orders, and MD notes were referenced and pt had been switched to PO Prednisone. The order was a one time order and given yesterday at 16:00. Dr Block was contacted by phone for clarification and no further orders were received. Plan is to see how well the Prednisone works for the patient, then reassess in the morning. Pt was given her Phenergan suppository.
--- NOTE | 2021-11-01 01:34 | PC.NURSE ---
11/01/21 @ 0130 At bedside to discuss the medications with pt. Pt is sitting up, visiting with spouse, eating fast food tacos and burgers. This nurse instructed pt that if she is feeling any nausea then she should stop eating or at least eat less greasy/spicy foods. Pt agreed, then continued to eat.
--- NOTE | 2021-11-01 03:12 | PC.NURSE ---
11/01/21 @ 0300 Pt sleeping, spouse at bedside.
[2021-11-01 09:30] VITALS: BP 111/73; PULSE 88; RESP 16; TEMP 36.9
[2021-11-01] MEDS: THIAMINE 100 MG in SODIUM CHLORIDE 0.9% 100 ML 404 ML IV (09:30)
--- NOTE | 2021-11-01 09:30 | PC.NURSE ---
0930 Pt. awake/ alert, keeping food down, no nausea, had bowel movement, Vitals as noted. Desires to go home.
--- NOTE | 2021-11-01 09:35 | PC.NURSE ---
Pt resting in bed. PICC line in right upper arm infusing unremarkable for s/sx of infection, D5LR @ 125mL/hr. Zofran infusion pump also infusing via PICC. supportive at bedside.
[2021-11-01] MEDS: predniSONE 20 MG TABLET PO (11:32)
[2021-11-01 11:36] VITALS: BP 124/83; PULSE 87; RESP 16; TEMP 36.8
--- NOTE | 2021-11-01 12:04 | PM.DS.1 ---
History of Present Illness History of Present Illness Date Patient Seen: 11/01/21 Time Patient Seen: 12:04 Chief complaint: Hyperemesis gravidarum Narrative: Patient was admitted to Labor and delivery for treatment for hyperemesis gravidarum and low potassium. ain. Discharge Providers Provider Date of admission: 10/29/21 19:10 Discharge Date: 11/01/21 Primary care physician: JAZ Pham Discharge provider: Lovely Velasquez MD Summary Hospital Course Discharge Diagnosis: Hyperemesis gravidarum and low potassium Hospital Course: Patient was admitted to Labor and delivery for treatment for hyperemesis gravidarum and low potassium. She received IV fluids, IV vitamins, IV steroids. Patient is finally tolerating regular diet. She is urinating and ambulating well. No pain. Status at Discharge Cognitive/behavioral status at discharge: oriented Functional status at discharge: independent ambulation Overall status at discharge: patient is progressing back to baseline Time Spent with Patient Time spent: Less than 30 minutes Exam Vital Signs (past 8 hours): - 11/01/21 09:30 11/01/21 11:36 Temperature 98.4 F 98.3 F Pulse Rate 88 87 Respiratory Rate 16 16 Blood Pressure 111/73 124/83 Narrative Exam Narrative: Abdomen is soft, nontender. Extremities without edema and nontender. Her PICC line appears to be clean, dry without evidence of infection. Objective Labs Result Diagrams: 10/29/21 19:42 10/31/21 05:05 [facility] Medical History (Updated 10/30/21 @ 08:11 by Lovely Velasquez MD) Eye injury Healthy adult Hyperemesis gravidarum Intrinsic atopic dermatitis Surgical History (Updated 10/28/21 @ 15:24 by Paula Smith RN) History of tonsillectomy Family History (Updated 10/28/21 @ 15:26 by Paula Smith RN) Sister Borderline diabetes Social History marital status: unmarried,living together number of children: 1 household members: spouse and family lives independently: Yes housing: house pets and animals: Yes (Dog - aware Toxoplasmosis) education level: high school occupational status: unemployed (emergency leave) and previously employed current occupational exposures/hazards: No special lexa needs: No seatbelt use: always water heater temp set < 120 deg: Yes (will check) working smoke detector in home: Yes fire extinguisher in home: Yes carbon monox detector in home: Yes firearms in home: Yes firearms unloaded and locked: Yes do you feel safe at home: Yes Smoking Status: Never smoker second hand exposure: No alcohol intake: former substance use type: does not use during the past year weight has: remained stable well-balanced diet: daily or most days daily servings fruits/ve-4 caffeine: Yes (200mg limit) Type(s) of exercise: walking Discharge Assessment & Plan Assessment and Plan Assessment: Patient with improvement of her hyperemesis gravidarum and return to normal potassium level Plan of Treatment: Patient is discharged home to continue her Zofran infusion, IV fluids as needed through her PICC line, weaning dose of prednisone. Discharge Plan Discharge Plan Patient Disposition: Home Discharge orders & Medications Prescriptions: New prednisone 5 mg tablet 5 mg PO DAILY Qty: 21 0RF Rx Instructions: 20 mg daily for 2 days, 10 mg daily for 3 days, 5 mg daily for 7 days Continued metoclopramide HCl [Reglan] 10 mg tablet 10 mg PO Q6H PRN (Reason: nausea and vomiting) Qty: 20 2RF promethazine 25 mg Suppository 25 mg DC Q6HR PRN (Reason: Nausea) Qty: 28 0RF Follow up/Referrals: Danica Briggs MD [Physician] - As previously scheduled (Tomorrow) Sandie Johansen ARNP [Primary Care Provider] - Diet/Activity/Treatments Diet: Diet as Tolerated Activity: No restrictions Skin/Wound/Dressing Care Report to your healthcare provider any signs of infection, such as:: chills, fever and increased pain Discharge Data Primary Care Provider: Sandie Johansen
--- NOTE | 2021-11-01 14:00 | PC.NURSE ---
intake 3562mL Primary IV, 200mL secondary
--- NOTE | 2021-11-01 14:53 | PC.NURSE ---
3562mL IV primary and 200mL IV secondary
--- NOTE | 2021-11-01 15:07 | PC.NURSE ---
Pt discharged ambulatory with . PICC infusing pt supply of Zofran, site unremarkable.
== END 2021-11-01 14:25 | disposition home or self-care (01) | DRG 566 ==
PROVIDERS: Admitting Provider Specialist; PCP Nurse Practitioner Family; Referring Provider Specialist; Visit Provider Specialist
DX: O21.0 Mild hyperemesis gravidarum (principal); E87.6 Hypokalemia; Z3A.09 9 weeks gestation of pregnancy; Z20.822 Contact with and (suspected) exposure to COVID-19
CPT/HCPCS: 36415; 80048; 80053; 83735; 85025; 87635; 96360; 99217; 99219; 99225; C9803; G0378; G0379; J2930; J7121

== ENCOUNTER 2021-11-09 19:21 | Emergency (ER) | payer OTHER, MEDICAID, SELFPAY ==
[2021-11-09 19:33] VITALS: BP 117/76; PULSE 87; RESP 20; TEMP 36.9; O2SAT 100; BMI 27.3
[2021-11-09 20:10] VITALS: BP 111/69; PULSE 87; O2SAT 97
--- NOTE | 2021-11-09 22:55 | ED_ITS ---
HPI - Nausea/Vomiting/Diarrhea General Chief complaint: Nausea/Vomiting/Diarrhea Stated complaint: Nausea, wants fluids Time Seen by Provider: 11/09/21 22:53 Source: patient Mode of arrival: Ambulatory Limitations: no limitations History of Present Illness HPI Narrative: This is a 26 year old at 9 weeks in 7 days presenting with hyperemesis for recurrence of vomiting, generally feeling unwell, abdominal cramping and worsening symptoms. Patient was admitted for approximately a week she has a PICC line in place. She was discharged home Zofran pump in place and using promethazine suppositories. Patient was discharged home on prednisone 20 mg x 2 days, then 10 mg x 2 days and then to 5 mg as she has weaned to the 5 mg she has begun have worsening symptoms. She did attempt to call her OBGYN but has not been able to reach them for the last 24 hours. She denies any fevers. No passing out. No chest pain or shortness of breath. She has had constipation but is passing gas. She denies dysuria, urgency or frequency. Patient did have 1 PICC line removed as there was concern for infection and had a new 1 placed. She is accompanied by her family and . Related Data Previous Rx's Medication Instructions Recorded metoclopramide HCl 10 mg tablet 10 mg PO Q6H PRN #20 tab 10/18/21 (Reglan) promethazine 25 mg rectal 25 mg VT Q6HR PRN #28 ea 10/26/21 suppository prednisone 5 mg tablet 5 mg PO DAILY #21 tab 11/01/21 prednisone 10 mg tablet 10 mg PO DAILY #3 tab 11/10/21 promethazine 25 mg rectal 25 mg VT Q6H PRN #12 ea 11/10/21 suppository Allergies Allergy/AdvReac Type Severity Reaction Status Date / Time latex Allergy Verified 10/28/21 15:22 erythromycin base AdvReac Intermediate Verified 10/28/21 15:22 Review of Systems Review of Systems ROS Unobtainable: All systems reviewed & are unremarkable except as noted in HPI and below Patient History Medical History Eye injury Healthy adult Hyperemesis gravidarum Intrinsic atopic dermatitis Surgical History History of tonsillectomy Family History Sister Borderline diabetes Social History marital status: unmarried,living together number of children: 1 household members: spouse and family lives independently: Yes housing: house pets and animals: Yes (Dog - aware Toxoplasmosis) education level: high school occupational status: unemployed (emergency leave) and previously employed current occupational exposures/hazards: No special lexa needs: No seatbelt use: always water heater temp set < 120 deg: Yes (will check) working smoke detector in home: Yes fire extinguisher in home: Yes carbon monox detector in home: Yes firearms in home: Yes firearms unloaded and locked: Yes do you feel safe at home: Yes Smoking Status: Never smoker second hand exposure: No alcohol intake: former substance use type: does not use during the past year weight has: remained stable well-balanced diet: daily or most days daily servings fruits/ve-4 caffeine: Yes (200mg limit) Type(s) of exercise: walking Smoking Status: Never smoker alcohol intake frequency: 0-2 drinks per day Substance Use Type: does not use Exam Narrative Exam Narrative: GENERAL: Alert and oriented x three, female in mild distress. HEENT: Head normocephalic, atraumatic, EOMI, pupils reactive, face symmetric, moist mucous membranes NECK: Supple, full range of motion CARDIOVASCULAR: Regular rate and rhythm without murmurs, rubs or gallops. RESPIRATORY: Breath sounds equal bilaterally, no wheezes rales or rhonchi. ABDOMEN: Soft, Mild generalized tenderness. Normal bowel sounds all 4 quadrants. No guarding or rebound, rigidity, no mass : No CVA tenderness EXTREMITIES: Normal range of motion, no clubbing or edema. Neurovascularly intact NEUROLOGICAL: Cranial nerves II through XII grossly intact. Moving all extremities SKIN: Warm, dry, no petechiae, no rashes or lesions. Initial Vital Signs Initial Vital Signs: Vital Signs Temperature 98.5 F 11/09/21 19:33 Pulse Rate 87 11/09/21 19:33 Respiratory Rate 20 11/09/21 19:33 Blood Pressure 117/76 11/09/21 19:33 Pulse Oximetry 100 11/09/21 19:33 Course Orders Ordered: ED Orders 11/09/21 23:30 CBC Auto Diff [Complete Blood Count AUTO DIFF] Stat CMP [Comprehensive Metabolic Panel] Stat Lipase Stat Discontinued Medications Sodium Chloride (Normal Saline 0.9%) 1,000 mls @ 1,000 mls/hr IV BOLUS ONE Stop: 11/09/21 23:55 Last Infusion: 11/10/21 01:07 Dose: 0 mls/hr Documented by: Admin: 11/09/21 23:34 Dose: 1,000 mls/hr Documented by: JEN Metoclopramide HCl (Metoclopramide 10 Mg/2 Ml Inj) 10 mg IV NOW ONE Stop: 11/09/21 23:03 Last Admin: 11/09/21 23:37 Dose: 10 mg Documented by: JEN Reevaluation(s) Reevaluation #1: Patient is sleeping but easily awakened. She has had some improvement in symptoms. Time: 00:47 Reevaluation #2: Reviewed recommendations from Dr. Velasquez who was seen the patient while in the hospital. Patient thinks she may need refill for her promethazine, will also give refill for 10 mg prednisone for the next 3 days. Consultations Consultation #1: Dr. Velasquez, pipe organ mechanic -recommends increasing prednisone back to 10 mg daily for the next 3 days. Patient can then wean back to 5 mg daily per taper protocol. The office will contact the patient to set follow-up and touch base. Time: 00:35 Vital Signs Vital signs: Vital Signs - 8 hr 11/09/21 23:43 11/10/21 01:02 11/10/21 01:03 Pulse Rate 78 90 101 H Blood Pressure 116/64 Pulse Oximetry 94 98 98 11/10/21 01:04 Pulse Rate 102 H Blood Pressure 106/57 L Pulse Oximetry 99 MDM - Nausea/Vomiting/Diarrhea Lab Data Result diagrams: 11/09/21 23:30 11/09/21 23:30 Labs: Lab Results 11/09/21 11/09/21 Range/Units 23:30 23:30 WBC 13.2 H (4.5-11.0) X10^3/uL RBC 3.45 L (4.0-5.2) X10^6/uL Hgb 11.1 L (12.0-16.0) g/dL Hct 32.6 L (36-46) % MCV 94.5 (80-100) fL MCH 32.2 (26-34) PG MCHC 34.0 (30-36) % RDW 13.1 (11.6-14.8) % Plt Count 229 (150-400) X10^3/uL Neut % (Auto) 78.3 H (50-75) % Lymph % (Auto) 16.6 L (25-40) % [place] % (Auto) 4.2 (3-14) % Eos % (Auto) 0.5 L (2-4) % Baso % (Auto) 0.4 (0-2) % Neut # (Auto) 55151 H (2952-9027) /uL Lymph # (Auto) 2200 (1545-5838) /uL [place] # (Auto) 600 (0-900) /uL Eos # (Auto) 100 (0-450) /uL Baso # (Auto) 0 (0-100) /uL Sodium 134 L (137-145) mmol/L Potassium 3.4 (3.4-5.1) mmol/L Chloride 103 (98-107) mmol/L Carbon Dioxide 19 L (22-32) mmol/L BUN 5 L (7-17) mg/dL Creatinine 0.37 L (0.52-1.04) mg/dL Estimated GFR > 60 (>60) mL/min BUN/Creatinine Ratio 13.5 (6-22) Glucose 81 (70-100) mg/dL Calcium 8.6 (8.4-10.2) mg/dL Total Bilirubin 0.5 (0.2-1.3) mg/dL AST 22 (14-36) IU/L ALT 39 H (<35) IU/L Alkaline Phosphatase 63 (38-126) U/L Total Protein 7.2 (6.3-8.2) g/dL Albumin 3.7 (3.5-5.0) g/dL Globulin 3.5 (1.7-4.1) g/dL Albumin/Globulin Ratio 1.1 (1.0-2.8) Lipase 360 H (23-300) U/L Urine Dip Bedside Urine Glucose Negative Bedside Urine Bilirubin - Negative Bedside Urine Ketone +/- 5 Urine Specific [place] 1.020 Bedside Urine Occult Blood - Negative Bedside Urine pH 6.0 Bedside Urine Protein +/- 15 Bedside Urine Urobilinogen - Negative Bedside Urine Nitrite - Negative Bedside Urine Leukocytes - Negative Esterase MDM Narrative Medical decision making narrative: This is a 26-year-old twin gestation with hyperemesis. Patient has been hospitalized recently in the last week and a half with similar symptoms. She was discharged home and has a PICC line, she has Zofran pump, she has been using promethazine suppositories and was on oral prednisone. She was feeling much better on the 20 in 10 mg dosage and when she weaned down to 5 mg has had worsening symptoms. Patient was given fluids, labs were evaluated. Case was discussed with Dr. Velasquez from [facility] who recommends increasing the patient back to 10 mg for the next several days and then attempting to wean back down and they will follow with the patient. Discussed with patient's spouse and herself return precautions all questions answered. Discharge Plan Departure Patient Disposition: Home Clinical Impression: Hyperemesis gravidarum Activity Restrictions/Additional Instructions: I spoke with Dr. Velasquez this evening. The office will call to check in with you and regarding plan for follow-up. She recommends we increased your prednisone back to 10 mg daily for the next 3 days, then decrease her prednisone once again to 5 mg once daily x7 days. You can continue with your Zofran pump, can continue with promethazine suppository every 6 hours as needed. Prescription refill for promethazine and prednisone tablets for the next 3 days were sent to [facility] in [place]. Please return for worsening symptoms if you are unable to tolerate fluids, persistent vomiting, fevers, new or worsening abdominal pain, cramping, black or bloody stools, vaginal bleeding or any other new or concerning symptoms. Prescriptions: New prednisone 10 mg tablet 10 mg PO DAILY Qty: 3 0RF promethazine 25 mg suppository 25 mg VT Q6H PRN (Reason: nausea and vomiting) Qty: 12 0RF No Action metoclopramide HCl [Reglan] 10 mg tablet 10 mg PO Q6H PRN (Reason: nausea and vomiting) Qty: 20 2RF promethazine 25 mg Suppository 25 mg VT Q6HR PRN (Reason: Nausea) Qty: 28 0RF prednisone 5 mg tablet 5 mg PO DAILY Qty: 21 0RF Rx Instructions: 20 mg daily for 2 days, 10 mg daily for 3 days, 5 mg daily for 7 days Referrals: Lovely Velasquez MD [Physician] - Sandie Johansen ARNP [Primary Care Provider] -
[2021-11-09] MEDS: SODIUM CHLORIDE 0.9% 1,000 ML 1000 ML IV (23:34)
[2021-11-09] MEDS: METOCLOPRAMIDE 10 MG/2 ML INJ IV (23:37)
[2021-11-09 23:43] VITALS: BP 116/64; PULSE 78; O2SAT 94; O2SAT 97
[2021-11-09 23:45] LABS: Add Manual Diff / Slide Review NO; Basophils Absolute Auto 0 /uL (0-100); Basophils Percent Auto 0.4 % (0-2); Eosinophils Absolute Auto 100 /uL (0-450); Eosinophils Percent Auto 0.5 % (2-4); Hematocrit 32.6 % (36-46); Hemoglobin 11.1 g/dL (12.0-16.0); Lymphocytes Absolute Auto 2200 /uL (1100-4500); Lymphocytes Percent Auto 16.6 % (25-40); Mean Corpuscular Hemoglobin 32.2 PG (26-34); Mean Corpuscular Volume 94.5 fL (80-100); Monocytes Absolute Auto 600 /uL (0-900); Monocytes Percent Auto 4.2 % (3-14); Neutrophils Absolute Auto 10400 /uL (1500-7000); Neutrophils Percent Auto 78.3 % (50-75); Platelet Count 229 X10^3/uL (150-400); Red Blood Cell Count 3.45 X10^6/uL (4.0-5.2); Red Cell Distribution Width 13.1 % (11.6-14.8); White Blood Cell Count 13.2 X10^3/uL (4.5-11.0)
[2021-11-09 23:50] LABS: Alanine Aminotransferase 39 IU/L (<35); Albumin 3.7 g/dL (3.5-5.0); Albumin Globulin Ratio 1.1 (1.0-2.8); Alkaline Phosphatase 63 U/L (38-126); Aspartate Aminotransferase 22 IU/L (14-36); BUN Creatinine Ratio 13.5 (6-22); Bilirubin Total 0.5 mg/dL (0.2-1.3); Blood Urea Nitrogen 5 mg/dL (7-17); Calcium 8.6 mg/dL (8.4-10.2); Carbon Dioxide 19 mmol/L (22-32); Chloride 103 mmol/L (98-107); Estimated Glomerular Filt Rate > 60 mL/min (>60); Globulin 3.5 g/dL (1.7-4.1); Glucose 81 mg/dL (70-100); HEMOLYSIS < 15 (0-50); Lipase 360 U/L (23-300); Potassium 3.4 mmol/L (3.4-5.1); Sodium 134 mmol/L (137-145); Total Protein 7.2 g/dL (6.3-8.2)
[2021-11-10 01:02] VITALS: PULSE 90; O2SAT 98
[2021-11-10 01:03] VITALS: PULSE 101; O2SAT 98
[2021-11-10 01:04] VITALS: BP 106/57; PULSE 102; O2SAT 99
== END 2021-11-10 01:10 | disposition home or self-care (01) ==
PROVIDERS: Emergency Provider Emergency Medicine; PCP Nurse Practitioner Family
DX: O21.0 Mild hyperemesis gravidarum (principal); Z3A.09 9 weeks gestation of pregnancy
CPT/HCPCS: 80053; 81003; 83690; 85025; 96361; 96374; 99283; 99284; J2765

== ENCOUNTER → 2021-11-22 13:20 | Outpatient (CLI) | payer OTHER, MEDICAID, SELFPAY ==
[2021-11-22 15:02] LABS: Add Manual Diff / Slide Review NO; Basophils Absolute Auto 0 /uL (0-100); Basophils Percent Auto 0.2 % (0-2); Eosinophils Absolute Auto 100 /uL (0-450); Eosinophils Percent Auto 0.7 % (2-4); Hematocrit 33.8 % (36-46); Hemoglobin 11.5 g/dL (12.0-16.0); Lymphocytes Absolute Auto 2000 /uL (1100-4500); Lymphocytes Percent Auto 24.7 % (25-40); Mean Corpuscular Hemoglobin 32.3 PG (26-34); Monocytes Absolute Auto 300 /uL (0-900); Monocytes Percent Auto 3.5 % (3-14); Neutrophils Absolute Auto 5700 /uL (1500-7000); Neutrophils Percent Auto 70.9 % (50-75); Platelet Count 230 X10^3/uL (150-400); Red Blood Cell Count 3.56 X10^6/uL (4.0-5.2)
[2021-11-23 06:23] LABS: RPR Screen Non Reactive (Non Reactive)
[2021-11-23 07:37] LABS: Varicella IgG Antibody <135 index (Immune >165)
[2021-11-24 17:22] LABS: Hepatitis B Surface Antigen NEGATIVE s/c (NEGATIVE); Rubella Antibody IgG 5.6 IU/mL (>15)
[2021-11-24 17:41] LABS: HIV 1 & 2 Ab/Ag 4th Gen Combo NEGATIVE (NEGATIVE); Hep C Virus Ab w/Reflex Quant NEGATIVE s/c (NEGATIVE)
== END ==
PROVIDERS: PCP Nurse Practitioner Family; Referring Provider Obstetrics & Gynecology; Visit Provider Obstetrics & Gynecology
DX: O30.041 Twin pregnancy, dichorionic/diamniotic, first trimester (principal); O26.21 Pregnancy care for patient with recurrent pregnancy loss, first trimester
CPT/HCPCS: 36415; 80055; 86787; 86803; 86850; 86900; 86901; 87389

== ENCOUNTER 2021-11-22 16:58 | Emergency (ER) | payer OTHER, MEDICAID, SELFPAY ==
[2021-11-22 17:00] VITALS: BP 115/58; PULSE 81; RESP 14; TEMP 36.9; O2SAT 99; BMI 27.6
--- NOTE | 2021-11-22 18:28 | ED.RECABL ---
HPI - Recheck/Abnormal Lab/Rx General Chief Complaint: Recheck/Abnormal Lab/Rx Stated Complaint: states PICC line is bleeding Time Seen by Provider: 11/22/21 18:25 Source: patient Mode of arrival: Ambulatory History of Present Illness HPI narrative: The patient is 3. She is currently 11 weeks with twins. She had a 2nd PICC line placed about one week ago due to hyperemesis gravidarum. The line is in her right upper arm. line was placed about 1 week ago. There is a small amount of blood at the IV site. The PICC line is functional. There is no hematoma, no erythema around the IV site. There is no active bleeding. She has no pain at the site. Related Data Previous Rx's Medication Instructions Recorded metoclopramide HCl 10 mg tablet 10 mg PO Q6H PRN #20 tab 10/18/21 (Reglan) promethazine 25 mg rectal 25 mg MA Q6HR PRN #28 ea 10/26/21 suppository prednisone 10 mg tablet 10 mg PO DAILY #3 tab 11/10/21 promethazine 25 mg rectal 25 mg MA Q6H PRN #12 ea 11/10/21 suppository prednisone 5 mg tablet 5 mg PO DAILY #21 tab 11/18/21 Allergies Allergy/AdvReac Type Severity Reaction Status Date / Time latex Allergy Verified 11/22/21 17:07 erythromycin base AdvReac Intermediate Verified 11/22/21 17:07 Review of Systems Constitutional Constitutional: Denies chills, Denies fever(s) and Denies headache(s) ENT Ears, Nose, Mouth, and Throat: Denies headache(s) Gastrointestinal Gastrointestinal: Denies abdominal pain, Denies loose stools and Reports nausea Genitourinary Comments: No urinary complaints. Musculoskeletal Comments: No right arm pain at the IV site. Integumentary/Breasts Comments: No active bleeding or suggestion of infection at the IV site. Neurologic Neurologic: Denies headache(s) Patient History Medical History Eye injury Healthy adult Hyperemesis gravidarum Intrinsic atopic dermatitis Surgical History History of tonsillectomy Family History Sister Borderline diabetes Social History marital status: unmarried,living together number of children: 1 household members: spouse and family lives independently: Yes housing: house pets and animals: Yes (Dog - aware Toxoplasmosis) education level: high school occupational status: unemployed (emergency leave) and previously employed current occupational exposures/hazards: No special lexa needs: No seatbelt use: always water heater temp set < 120 deg: Yes (will check) working smoke detector in home: Yes fire extinguisher in home: Yes carbon monox detector in home: Yes firearms in home: Yes firearms unloaded and locked: Yes do you feel safe at home: Yes Smoking Status: Never smoker second hand exposure: No alcohol intake: former substance use type: does not use during the past year weight has: remained stable well-balanced diet: daily or most days daily servings fruits/ve-4 caffeine: Yes (200mg limit) Type(s) of exercise: walking Smoking Status: Never smoker alcohol intake frequency: holidays/special occasions only Substance Use Type: does not use Exam Initial Vital Signs Initial Vital Signs: Vital Signs Temperature 98.4 F 11/22/21 17:00 Pulse Rate 81 11/22/21 17:00 Respiratory Rate 14 11/22/21 17:00 Blood Pressure 115/58 L 11/22/21 17:00 Pulse Oximetry 99 11/22/21 17:00 Const General: cooperative, healthy appearing and comfortable Skin Other: The IV site on her right upper arm is examined. There is a very small amount of blood that oozed from the IV site, this does not appear to be a fresh bleed. There is no inflammation at the IV site, I cannot express blood from around the site. There is no erythema or warmth. Neuro General: patient alert and patient oriented x3 Extrem Other: Normal range of motion right upper arm. Course Vital Signs Vital signs: Vital Signs - 8 hr 11/22/21 17:00 Temperature 98.4 F Pulse Rate 81 Respiratory Rate 14 Blood Pressure 115/58 L Pulse Oximetry 99 Discharge Plan Departure Patient Disposition: Home Clinical Impression: IV infusion line dysfunction, Twins, 1st trimester screening Instructions: Minor Wounds (Alternative Therapy) Activity Restrictions/Additional Instructions: The IV site looks quite well. This appears to be a minimal amount of bleeding, probably old blood from the original IV stick. There is no infection or active bleeding. Follow-up with your home care nurse, return here as needed. Prescriptions: No Action prednisone 5 mg tablet 5 mg PO DAILY Qty: 21 0RF Rx Instructions: 20 mg daily for 2 days, 10 mg daily for 3 days, 5 mg daily for 7 days metoclopramide HCl [Reglan] 10 mg tablet 10 mg PO Q6H PRN (Reason: nausea and vomiting) Qty: 20 2RF promethazine 25 mg Suppository 25 mg MA Q6HR PRN (Reason: Nausea) Qty: 28 0RF prednisone 10 mg tablet 10 mg PO DAILY Qty: 3 0RF promethazine 25 mg suppository 25 mg MA Q6H PRN (Reason: nausea and vomiting) Qty: 12 0RF Referrals: Sandie Johansen ARNP [Primary Care Provider] -
== END 2021-11-22 18:58 | disposition home or self-care (01) ==
PROVIDERS: Emergency Provider Emergency Medicine; PCP Nurse Practitioner Family
DX: T82.598A Other mechanical complication of other cardiac and vascular devices and implants, initial encounter (principal); O30.041 Twin pregnancy, dichorionic/diamniotic, first trimester; O26.21 Pregnancy care for patient with recurrent pregnancy loss, first trimester
CPT/HCPCS: 86787; 86803; 86850; 86900; 86901; 87389; 99281

== ENCOUNTER 2021-12-03 14:56 | Observation (INO) | payer OTHER, MEDICAID, SELFPAY ==
[2021-12-03] VITALS (11 sets, daily range): BP systolic 84–123; BP diastolic 45–71; PULSE 72–99; RESP 16–18; TEMP 36.2–36.6; O2SAT 96–100; BMI 27.3; BMI 27.8
--- NOTE | 2021-12-03 15:38 | ED.NAVMDI ---
HPI - Nausea/Vomiting/Diarrhea General Chief complaint: Nausea/Vomiting/Diarrhea Stated complaint: Vomiting, 13 weeks Time Seen by Provider: 12/03/21 15:38 Source: patient and old records reviewed Mode of arrival: Ambulatory Limitations: no limitations History of Present Illness HPI Narrative: This is a 26-year-old female who is at 13 weeks gestation with twin . Patient has been seen several times for hyper it is is and has a PICC and has been giving herself Zofran IV, promethazine suppositories as well as fluid infusions at home. She has tried all of these today. She has had some persistent vomiting today. Was on oral steroids prednisone which she had been attempted weaned off twice had most recently weaned in the last week. Started having worsening symptoms within 2 or 3 days afterwards and restarted with 20 mg Sunday, she through this dose up had a dose today which seems to have stay down. Patient denies fevers or chills. She has had nausea and vomiting. She has had some lower abdominal cramping and hip discomfort, some low back discomfort but no cramping. No flank pain reported. Patient has not had any diarrhea. She has had some constipation but having bowel movements. No dysuria, urgency frequency. No vaginal bleeding or fluid. Patient follows with Dr. Briggs her OBGYN and was in contact with the OB service today and was encouraged to come here for evaluation. Related Data Previous Rx's Medication Instructions Recorded metoclopramide HCl 10 mg tablet 10 mg PO Q6H PRN #20 tab 10/18/21 (Reglan) promethazine 25 mg rectal 25 mg [place] Q6H PRN #12 ea 11/10/21 suppository prednisone 5 mg tablet See Rx Instructions .ROUTE 12/05/21 .COMPLEX #21 tab Allergies Allergy/AdvReac Type Severity Reaction Status Date / Time latex Allergy Verified 11/22/21 17:07 erythromycin base AdvReac Intermediate Verified 11/22/21 17:07 Review of Systems Review of Systems ROS Unobtainable: All systems reviewed & are unremarkable except as noted in HPI and below Patient History Medical History Eye injury Healthy adult Intrinsic atopic dermatitis Surgical History History of tonsillectomy Family History Sister Borderline diabetes Social History marital status: unmarried,living together number of children: 1 household members: spouse and family lives independently: Yes housing: house pets and animals: Yes (Dog - aware Toxoplasmosis) education level: high school occupational status: unemployed (emergency leave) and previously employed current occupational exposures/hazards: No special lexa needs: No seatbelt use: always water heater temp set < 120 deg: Yes (will check) working smoke detector in home: Yes fire extinguisher in home: Yes carbon monox detector in home: Yes firearms in home: Yes firearms unloaded and locked: Yes do you feel safe at home: Yes Smoking Status: Never smoker second hand exposure: No alcohol intake: former substance use type: does not use during the past year weight has: remained stable well-balanced diet: daily or most days daily servings fruits/ve-4 caffeine: Yes (200mg limit) Type(s) of exercise: walking Smoking Status: Never smoker alcohol intake frequency: holidays/special occasions only Substance Use Type: does not use Exam Narrative Exam Narrative: GENERAL: Alert and oriented x three, female in mild distress. HEENT: Head normocephalic, atraumatic, EOMI, pupils reactive, face symmetric, moist mucous membranes NECK: Supple, full range of motion CARDIOVASCULAR: Regular rate and rhythm without murmurs, rubs or gallops. RESPIRATORY: Breath sounds equal bilaterally, no wheezes rales or rhonchi. ABDOMEN: Soft, nontender. Gravid. Normoactive bowel sounds all 4 quadrants. No guarding or rebound, rigidity, no mass : No CVA tenderness EXTREMITIES: Normal range of motion, no clubbing or edema. Neurovascularly intact NEUROLOGICAL: Cranial nerves II through XII grossly intact. Moving all extremities SKIN: Warm, dry, no petechiae, no rashes or lesions. Initial Vital Signs Initial Vital Signs: Vital Signs Temperature 98 F 12/03/21 15:10 Pulse Rate 98 H 12/03/21 15:10 Respiratory Rate 16 12/03/21 15:10 Blood Pressure 112/71 12/03/21 15:10 Pulse Oximetry 99 12/03/21 15:10 Course Orders Ordered: Discontinued Medications Acetaminophen (Acetaminophen 325 Mg Tablet) 650 mg PO Q6HR BETTY Last Admin: 12/05/21 05:28 Dose: Not Given Documented by: Admin: 12/05/21 00:00 Dose: Not Given Documented by: Admin: 12/04/21 18:12 Dose: Not Given Documented by: Admin: 12/04/21 11:33 Dose: Not Given Documented by: Admin: 12/04/21 05:40 Dose: Not Given Documented by: Admin: 12/04/21 01:54 Dose: Not Given Documented by: RADHA Acetaminophen (Acetaminophen 325 Mg Tablet) 650 mg PO Q6HR PRN PRN Reason: pain Diphenhydramine HCl (Diphenhydramine 50 Mg/Ml Vial) 25 mg IV Q4HR PRN PRN Reason: Nausea Last Admin: 12/04/21 21:45 Dose: 25 mg Documented by: Admin: 12/04/21 03:42 Dose: 25 mg Documented by: Admin: 12/03/21 22:42 Dose: 25 mg Documented by: RADHA Sodium Chloride (Normal Saline 0.9%) 1,000 mls @ 1,000 mls/hr IV BOLUS ONE Stop: 12/03/21 16:48 Last Infusion: 12/03/21 17:09 Dose: 0 mls/hr Documented by: Admin: 12/03/21 16:04 Dose: 1,000 mls/hr Documented by: TISHA Sodium Chloride (Normal Saline 0.9%) 1,000 mls @ 1,000 mls/hr IV BOLUS ONE Stop: 12/03/21 18:25 Last Infusion: 12/03/21 18:27 Dose: 0 mls/hr Documented by: Admin: 12/03/21 17:27 Dose: 1,000 mls/hr Documented by: TISHA Ceftriaxone Sodium 1,000 mg/ (Sodium Chloride) 100 mls @ 200 mls/hr IV NOW ONE Stop: 12/03/21 18:16 Last Infusion: 12/03/21 19:11 Dose: 0 mls/hr Documented by: Admin: 12/03/21 18:34 Dose: 200 mls/hr Documented by: TISHA Potassium Chloride 20 meq/ (Sodium Chloride) 1,010 mls @ 150 mls/hr IV CONT BETTY Last Admin: 12/04/21 02:25 Dose: Not Given Documented by: RADHA Potassium Chloride 40 meq/ (Sodium Chloride) 1,020 mls @ 150 mls/hr IV CONT BETTY Sodium Chloride (Normal Saline 0.9%) 1,000 mls @ 125 mls/hr IV CONT BETTY Last Infusion: 12/05/21 09:00 Dose: 0 mls/hr Documented by: Admin: 12/05/21 05:22 Dose: 125 mls/hr Documented by: Infusion: 12/04/21 10:12 Dose: 0 mls/hr Documented by: Admin: 12/03/21 22:41 Dose: 125 mls/hr Documented by: RADHA POTASSIUM CHLORIDE IN WATER (Potassium Cl 10 Meq/100 Ml Eileen) 10 meq in 100 mls @ 100 mls/hr IV Q1H BETTY Stop: 12/04/21 00:29 Last Admin: 12/04/21 01:54 Dose: Not Given Documented by: Admin: 12/04/21 01:53 Dose: Not Given Documented by: Admin: 12/04/21 00:21 Dose: 100 mls/hr Documented by: Infusion: 12/03/21 23:40 Dose: 100 mls/hr Documented by: Admin: 12/03/21 22:40 Dose: 100 mls/hr Documented by: RADHA POTASSIUM CHLORIDE IN WATER (Potassium Cl 10 Meq/100 Ml Eileen) 10 meq in 100 mls @ 100 mls/hr IV Q1H BETTY Stop: 12/04/21 03:59 Last Admin: 12/04/21 03:01 Dose: 100 mls/hr Documented by: Infusion: 12/04/21 02:55 Dose: 100 mls/hr Documented by: Admin: 12/04/21 01:55 Dose: 100 mls/hr Documented by: RADHA Methylprednisolone (Methylprednisolone 40 Mg/Ml Vial) 16 mg IV Q8H BETTY Last Admin: 12/05/21 05:22 Dose: 16 mg Documented by: Admin: 12/04/21 21:45 Dose: 16 mg Documented by: Admin: 12/04/21 13:50 Dose: 16 mg Documented by: Admin: 12/04/21 05:36 Dose: 16 mg Documented by: Admin: 12/03/21 22:42 Dose: 16 mg Documented by: RADHA Metoclopramide HCl (Metoclopramide 10 Mg/2 Ml Inj) 10 mg IV NOW ONE Stop: 12/03/21 15:50 Last Admin: 12/03/21 16:04 Dose: 10 mg Documented by: TISHA Metoclopramide HCl (Metoclopramide 10 Mg/2 Ml Inj) 10 mg IV NOW ONE Stop: 12/03/21 18:50 Last Admin: 12/03/21 18:51 Dose: 10 mg Documented by: TISHA Metoclopramide HCl (Metoclopramide 10 Mg/2 Ml Inj) 10 mg IV Q6HR PRN PRN Reason: Nausea And Vomiting Last Admin: 12/04/21 11:33 Dose: 10 mg Documented by: Admin: 12/04/21 04:12 Dose: 10 mg Documented by: Admin: 12/03/21 22:42 Dose: 10 mg Documented by: RADHA Ondansetron HCl (Ondansetron 4 Mg/2 Ml Inj) 4 mg IV Q1H PRN PRN Reason: Nausea And Vomiting Last Admin: 12/05/21 05:22 Dose: 4 mg Documented by: RADHA Prednisone (Prednisone 20 Mg Tablet) 20 mg PO NOW ONE Stop: 12/05/21 08:42 Last Admin: 12/05/21 08:49 Dose: 20 mg Documented by: ARIC Promethazine HCl (Promethazine 12.5 Mg Supp) 12.5 mg MT Q6HR PRN PRN Reason: Nausea And Vomiting Consultations Consultation #1: Dr. Alva, accepts for observation for hyperemesis with electrolyte abnormalities and persistent symptoms despite PICC line with home Zofran pump and IV fluids. Vital Signs Vital signs: Vital Signs - 8 hr 12/03/21 15:10 Temperature 98 F Pulse Rate 98 H Respiratory Rate 16 Blood Pressure 112/71 Pulse Oximetry 99 MDM - Nausea/Vomiting/Diarrhea Lab Data Result diagrams: 12/03/21 16:05 12/04/21 06:11 Labs: Lab Results 05/28/22 05/28/22 05/28/22 Range/Units 15:26 16:05 16:05 WBC 9.7 (4.5-11.0) X10^3/uL RBC 3.40 L (4.0-5.2) X10^6/uL Hgb 10.9 L (12.0-16.0) g/dL Hct 32.2 L (36-46) % MCV 94.5 (80-100) fL MCH 32.1 (26-34) PG MCHC 34.0 (30-36) % RDW 12.8 (11.6-14.8) % Plt Count 233 (150-400) X10^3/uL Neut % (Auto) 80.6 H (50-75) % Lymph % (Auto) 14.6 L (25-40) % [place] % (Auto) 3.9 (3-14) % Eos % (Auto) 0.2 L (2-4) % Baso % (Auto) 0.7 (0-2) % Neut # (Auto) 7800 H (5849-2503) /uL Lymph # (Auto) 1400 (6136-5683) /uL [place] # (Auto) 400 (0-900) /uL Eos # (Auto) 0 (0-450) /uL Baso # (Auto) 100 (0-100) /uL Sodium 136 L (137-145) mmol/L Potassium 3.3 L (3.4-5.1) mmol/L Chloride 108 H (98-107) mmol/L Carbon Dioxide 19 L (22-32) mmol/L BUN 4 L (7-17) mg/dL Creatinine 0.39 L (0.52-1.04) mg/dL Estimated GFR > 60 (>60) mL/min BUN/Creatinine Ratio 10.3 (6-22) Glucose 86 (70-100) mg/dL Calcium 8.8 (8.4-10.2) mg/dL Total Bilirubin 0.4 (0.2-1.3) mg/dL AST 19 (14-36) IU/L ALT 14 (<35) IU/L Alkaline Phosphatase 44 (38-126) U/L Total Protein 7.1 (6.3-8.2) g/dL Albumin 3.8 (3.5-5.0) g/dL Globulin 3.3 (1.7-4.1) g/dL Albumin/Globulin Ratio 1.2 (1.0-2.8) Lipase 116 (23-300) U/L Urine Color Yellow Urine Appearance Clear Urine pH 6.5 (4.5-8.0) Ur Specific [place] 1.025 (1.000-1.035) Urine Protein Trace H (Negative) Urine Glucose (UA) Trace H (Negative) g/dL Urine Ketones 3+ H (NEGATIVE) Urine Occult Blood Negative (Negative) Urine Nitrate Negative (Negative) Urine Bilirubin Negative (NEGATIVE) Urine Urobilinogen 1.0 (0.2) E.U./dL Ur Leukocyte Esterase Trace H (NEGATIVE) Urine RBC 0-1/hpf (0-5/HPF) Urine WBC 5-10/hpf H (0-5/HPF) Ur Squamous Epith Cells 1-5 /hpf (0-5/HPF) Ur Transition Epith Cell 5-10/hpf H (0-5/HPF) Amorphous Sediment 1+ Urine Bacteria Few (2-10) H (None) Hyaline Casts 5-10/lpf (None) Urine Mucus 2+ H (Negative) Ur Culture Indicated? Specimen cultured SARS-CoV-2 (PCR) (Negative) 12/03/21 Range/Units 16:42 WBC (4.5-11.0) X10^3/uL RBC (4.0-5.2) X10^6/uL Hgb (12.0-16.0) g/dL Hct (36-46) % MCV (80-100) fL MCH (26-34) PG MCHC (30-36) % RDW (11.6-14.8) % Plt Count (150-400) X10^3/uL Neut % (Auto) (50-75) % Lymph % (Auto) (25-40) % [place] % (Auto) (3-14) % Eos % (Auto) (2-4) % Baso % (Auto) (0-2) % Neut # (Auto) (0059-2188) /uL Lymph # (Auto) (9906-6312) /uL [place] # (Auto) (0-900) /uL Eos # (Auto) (0-450) /uL Baso # (Auto) (0-100) /uL Sodium (137-145) mmol/L Potassium (3.4-5.1) mmol/L Chloride (98-107) mmol/L Carbon Dioxide (22-32) mmol/L BUN (7-17) mg/dL Creatinine (0.52-1.04) mg/dL Estimated GFR (>60) mL/min BUN/Creatinine Ratio (6-22) Glucose (70-100) mg/dL Calcium (8.4-10.2) mg/dL Total Bilirubin (0.2-1.3) mg/dL AST (14-36) IU/L ALT (<35) IU/L Alkaline Phosphatase (38-126) U/L Total Protein (6.3-8.2) g/dL Albumin (3.5-5.0) g/dL Globulin (1.7-4.1) g/dL Albumin/Globulin Ratio (1.0-2.8) Lipase (23-300) U/L Urine Color Urine Appearance Urine pH (4.5-8.0) Ur Specific [place] (1.000-1.035) Urine Protein (Negative) Urine Glucose (UA) (Negative) g/dL Urine Ketones (NEGATIVE) Urine Occult Blood (Negative) Urine Nitrate (Negative) Urine Bilirubin (NEGATIVE) Urine Urobilinogen (0.2) E.U./dL Ur Leukocyte Esterase (NEGATIVE) Urine RBC (0-5/HPF) Urine WBC (0-5/HPF) Ur Squamous Epith Cells (0-5/HPF) Ur Transition Epith Cell (0-5/HPF) Amorphous Sediment Urine Bacteria (None) Hyaline Casts (None) Urine Mucus (Negative) Ur Culture Indicated? SARS-CoV-2 (PCR) Negative (Negative) MDM Narrative Medical decision making narrative: This is a 26-year-old female who is 13 weeks with twin gestation with hyperemesis gravidarum who has had an IV Zofran pump, retro promethazine, IV fluids at home who had persistent vomiting today, she has mild electrolyte abnormalities, ketones and has had some persistent emesis in the department despite Reglan in addition to her other medications. Woke with Dr. Alva who accepts for observation. Discharge Plan Departure Patient Disposition: Admitted as Observation Clinical Impression: Hyperemesis gravidarum Admit Date/Time: 12/03/21 19:05 Admit Provider: Lisa Alva
[2021-12-03] MEDS: METOCLOPRAMIDE 10 MG/2 ML INJ IV ×3 (16:04→22:42)
[2021-12-03] MEDS: SODIUM CHLORIDE 0.9% 1,000 ML 1000 ML IV ×2 (16:04→17:27)
[2021-12-03 16:26] LABS: Add Manual Diff / Slide Review NO; Basophils Absolute Auto 100 /uL (0-100); Basophils Percent Auto 0.7 % (0-2); Eosinophils Absolute Auto 0 /uL (0-450); Eosinophils Percent Auto 0.2 % (2-4); Hematocrit 32.2 % (36-46); Hemoglobin 10.9 g/dL (12.0-16.0); Lymphocytes Absolute Auto 1400 /uL (1100-4500); Lymphocytes Percent Auto 14.6 % (25-40); Mean Corpuscular Hemoglobin 32.1 PG (26-34); Mean Corpuscular Volume 94.5 fL (80-100); Monocytes Absolute Auto 400 /uL (0-900); Monocytes Percent Auto 3.9 % (3-14); Neutrophils Absolute Auto 7800 /uL (1500-7000); Neutrophils Percent Auto 80.6 % (50-75); Platelet Count 233 X10^3/uL (150-400); Red Cell Distribution Width 12.8 % (11.6-14.8); White Blood Cell Count 9.7 X10^3/uL (4.5-11.0)
[2021-12-03 16:28] LABS: Alanine Aminotransferase 14 IU/L (<35); Albumin 3.8 g/dL (3.5-5.0); Albumin Globulin Ratio 1.2 (1.0-2.8); Alkaline Phosphatase 44 U/L (38-126); Aspartate Aminotransferase 19 IU/L (14-36); BUN Creatinine Ratio 10.3 (6-22); Bilirubin Total 0.4 mg/dL (0.2-1.3); Blood Urea Nitrogen 4 mg/dL (7-17); Calcium 8.8 mg/dL (8.4-10.2); Carbon Dioxide 19 mmol/L (22-32); Chloride 108 mmol/L (98-107); Estimated Glomerular Filt Rate > 60 mL/min (>60); Globulin 3.3 g/dL (1.7-4.1); Glucose 86 mg/dL (70-100); HEMOLYSIS < 15 (0-50); Lipase 116 U/L (23-300); Potassium 3.3 mmol/L (3.4-5.1); Sodium 136 mmol/L (137-145); Total Protein 7.1 g/dL (6.3-8.2)
[2021-12-03 17:48] LABS: Appearance Urine UA CLEAR; Bilirubin Urine UA NEGATIVE (NEGATIVE); Color Urine UA YELLOW; Glucose Urine UA TRACE g/dL (Negative); Ketones Urine UA 3+ (NEGATIVE); Leukocyte Esterase Urine UA TRACE (NEGATIVE); Nitrite Urine UA NEGATIVE (Negative); Occult Blood Urine UA NEGATIVE (Negative); Protein Urine UA TRACE (Negative); Specific Gravity Urine UA 1.025 (1.000-1.035)
[2021-12-03 18:13] LABS: Amorphous Sediment Urine 1+; Bacteria Urine Few (2-10); Culture Indicated Urine Specimen Cultured; Hyaline Casts Urine 5-10/LPF; Mucus Urine 2+ (Negative); RBC Urine 0-1/HPF (0-5/HPF); Squamous Epithelial Cell Urine 1-5 /HPF (0-5/HPF); Transitional Epi Cells Urine 5-10/HPF (0-5/HPF); WBC Urine 5-10/HPF (0-5/HPF); pH Urine UA 6.5 (4.5-8.0)
[2021-12-03] MEDS: cefTRIAXone 1,000 MG in SODIUM CHLORIDE 0.9% 100 ML 200 MG IV (18:34)
[2021-12-03 19:06] LABS: COVID19 -Nasal RAPID Negative (Negative)
--- NOTE | 2021-12-03 19:40 | P.HPOB_ITS ---
OB HPI Date/Time Date of admission: 12/03/21 Date Patient Seen: 12/03/21 Time Patient Seen: 19:20 History of Present Condition Chief complaint: Vomiting, 13 weeks : 4 Para: 1 Estimated Date of Delivery: 06/08/22 Estimated Gestational Age (weeks): 13w2d Narrative: Jeannine Hall is a 26 year old at 13 weeks and 2 days gestation with a twin complicated by severe hyperemesis gravidarum. She has been admitted 3 times this due to hyperemesis and responds best to steroids. She has a PICC line and gives herself 2 L of fluid a day in addition to a Zofran pump. Promethazine suppositories have been helpful at times though not consistently. She completed a prednisone taper several days ago and made it 2 days before nausea and vomiting again became severe. When she is on the prednisone she feels good and is able to eat. She called the [facility] office 2 days ago and was prescribed another prednisone taper. She attempted to take the first dose yesterday but vomited it up. She attempted again today but could not keep it down. She has vomited several times today and has not eaten for days. Promethazine suppositories are no longer effective. She continues with the Z ofran pump but it does not seem to be helping. Denies cramping or bleeding. She does have a headache when she is vomiting. No fevers, diarrhea or dysuria. She has been constipated from Zofran. She had hyperemesis at her last with a Zofran pump as well. Past pregnancies Del. Date GA/Weeks Labor Lgth Wt Sex Route Outcome Anesthesia Place Delv Breastfeed Preg Comp Name 11/29/16 38 20 5 lb 2 oz Male vaginal live - full term epidural [facility] 2 yrs other Zach 02/08/21 5 ? elective ? 05/11/21 5 ? spontaneous aborti on ? Prior (ies) History: [facility] Medical History Eye injury Healthy adult Hyperemesis gravidarum Intrinsic atopic dermatitis Surgical History History of tonsillectomy Family History Sister Borderline diabetes Social History marital status: unmarried,living together number of children: 1 household members: spouse and family lives independently: Yes housing: house pets and animals: Yes (Dog - aware Toxoplasmosis) education level: high school occupational status: unemployed (emergency leave) and previously employed current occupational exposures/hazards: No special lexa needs: No seatbelt use: always water heater temp set < 120 deg: Yes (will check) working smoke detector in home: Yes fire extinguisher in home: Yes carbon monox detector in home: Yes firearms in home: Yes firearms unloaded and locked: Yes do you feel safe at home: Yes Smoking Status: Never smoker second hand exposure: No alcohol intake: former substance use type: does not use during the past year weight has: remained stable well-balanced diet: daily or most days daily servings fruits/ve-4 caffeine: Yes (200mg limit) Type(s) of exercise: walking Meds Home Medications and Allergies Home Medications Medication Instructions Recorded Confirmed Type metoclopramide HCl 10 mg tablet 10 mg PO Q6H PRN #20 tab 10/18/21 11/22/21 Rx (Reglan) promethazine 25 mg rectal 25 mg [place] Q6HR PRN #28 ea 10/26/21 11/22/21 Rx suppository prednisone 10 mg tablet 10 mg PO DAILY #3 tab 11/10/21 11/22/21 Rx promethazine 25 mg rectal 25 mg [place] Q6H PRN #12 ea 11/10/21 11/22/21 Rx suppository prednisone 5 mg tablet 5 mg PO DAILY #21 tab 12/01/21 Rx Allergies Allergy/AdvReac Type Severity Reaction Status Date / Time latex Allergy Verified 11/22/21 17:07 erythromycin base AdvReac Intermediate Verified 11/22/21 17:07 Review of Systems Review of Systems ROS: Yes All systems reviewed with the patient and are negative except as otherwise documented OB Exam Narrative Exam Narrative: General: Resting in bed on her side, appears uncomfortable. at bedside HEENT: Moist oral mucosa CV: Regular rate and rhythm, no murmur Lungs: Clear to auscultation bilaterally Abdomen: Bowel tones present. Abdomen is soft and mildly tender without guarding. Extremities: No edema Objective Labs Result Diagrams: 12/03/21 16:05 12/03/21 16:05 Labs: Laboratory Results - last 24 hr 12/03/21 12/03/21 12/03/21 15:26 16:05 16:05 WBC 9.7 RBC 3.40 L Hgb 10.9 L Hct 32.2 L MCV 94.5 MCH 32.1 MCHC 34.0 RDW 12.8 Plt Count 233 Neut % (Auto) 80.6 H Lymph % (Auto) 14.6 L [place] % (Auto) 3.9 Eos % (Auto) 0.2 L Baso % (Auto) 0.7 Neut # (Auto) 7800 H Lymph # (Auto) 1400 [place] # (Auto) 400 Eos # (Auto) 0 Baso # (Auto) 100 Sodium 136 L Potassium 3.3 L Chloride 108 H Carbon Dioxide 19 L BUN 4 L Creatinine 0.39 L Estimated GFR > 60 BUN/Creatinine Ratio 10.3 Glucose 86 Calcium 8.8 Total Bilirubin 0.4 AST 19 ALT 14 Alkaline Phosphatase 44 Total Protein 7.1 Albumin 3.8 Globulin 3.3 Albumin/Globulin Ratio 1.2 Lipase 116 Urine Color Yellow Urine Appearance Clear Urine pH 6.5 Ur Specific [place] 1.025 Urine Protein Trace H Urine Glucose (UA) Trace H Urine Ketones 3+ H Urine Occult Blood Negative Urine Nitrate Negative Urine Bilirubin Negative Urine Urobilinogen 1.0 Ur Leukocyte Esterase Trace H Urine RBC 0-1/hpf Urine WBC 5-10/hpf H Ur Squamous Epith Cells 1-5 /hpf Ur Transition Epith Cell 5-10/hpf H Amorphous Sediment 1+ Urine Bacteria Few (2-10) H Hyaline Casts 5-10/lpf Urine Mucus 2+ H Ur Culture Indicated? Specimen cultured SARS-CoV-2 (PCR) 12/03/21 16:42 WBC RBC Hgb Hct MCV MCH MCHC RDW Plt Count Neut % (Auto) Lymph % (Auto) [place] % (Auto) Eos % (Auto) Baso % (Auto) Neut # (Auto) Lymph # (Auto) [place] # (Auto) Eos # (Auto) Baso # (Auto) Sodium Potassium Chloride Carbon Dioxide BUN Creatinine Estimated GFR BUN/Creatinine Ratio Glucose Calcium Total Bilirubin AST ALT Alkaline Phosphatase Total Protein Albumin Globulin Albumin/Globulin Ratio Lipase Urine Color Urine Appearance Urine pH Ur Specific [place] Urine Protein Urine Glucose (UA) Urine Ketones Urine Occult Blood Urine Nitrate Urine Bilirubin Urine Urobilinogen Ur Leukocyte Esterase Urine RBC Urine WBC Ur Squamous Epith Cells Ur Transition Epith Cell Amorphous Sediment Urine Bacteria Hyaline Casts Urine Mucus Ur Culture Indicated? SARS-CoV-2 (PCR) Negative Assessment and Plan Assessment and Plan Assessment and Plan narrative: 26-year-old 13 weeks and 2 days with a twin complicated by hypere mesis gravidarum. This is her third admission for hyperemesis. She had been managing at home with a PICC line for 2 L of IV fluids daily as well as a Zofran pump and rectal promethazine. Unfortunately symptoms again became severe after she finished her last prednisone taper. A prednisone taper was again prescribed as an outpatient however she has been unable to keep it down. In the ER she received normal saline, Reglan x2 and a dose of ceftriaxone due to concern for UTI. Unfortunately nausea and vomiting persist. Will admit now for continued IV fluids as well as IV steroids with methy lprednisolone 16 mg q.8 hours. She responded well to methylprednisolone during her last admission and was able to transition to prednisone. Promethazine has not been as effective for her so will try IV Benadryl for nausea as well. Potassium was noted to be mildly low at 3.3. Potassium will be replaced in her maintenance IV fluids. Recheck BMP in the morning. Urine culture is pending. Will determine the need for further antibiotics after the preliminary culture results. Anticipate discharge when she is tolerating oral prednisone and diet. Last admission was 4 days.
[2021-12-03] MEDS: POTASSIUM CHLORIDE IN WATER 10 MEQ/100 ML PIGGYBACK 100 MEQ IV (22:40)
[2021-12-03] MEDS: SODIUM CHLORIDE 0.9% 1,000 ML 125 ML IV (22:41)
[2021-12-03] MEDS: diphenhydrAMINE 50 MG/ML VIAL 25 MG IV (22:42)
[2021-12-04 00:09] VITALS: BP 123/60; PULSE 73; RESP 16; TEMP 36.8; O2SAT 99
[2021-12-04] MEDS: POTASSIUM CHLORIDE IN WATER 10 MEQ/100 ML PIGGYBACK 100 MEQ IV ×3 (00:21→03:01)
[2021-12-04] MEDS: diphenhydrAMINE 50 MG/ML VIAL 25 MG IV ×2 (03:42→21:45)
[2021-12-04] MEDS: METOCLOPRAMIDE 10 MG/2 ML INJ IV ×2 (04:12→11:33)
[2021-12-04 05:00] VITALS: BP 107/55; PULSE 93; RESP 16; TEMP 36.3
[2021-12-04 06:40] LABS: BUN Creatinine Ratio 5.4 (6-22); Blood Urea Nitrogen 2 mg/dL (7-17); Calcium 8.3 mg/dL (8.4-10.2); Carbon Dioxide 18 mmol/L (22-32); Chloride 110 mmol/L (98-107); Estimated Glomerular Filt Rate > 60 mL/min (>60); Glucose 79 mg/dL (70-100); HEMOLYSIS < 15 (0-50); Potassium 3.8 mmol/L (3.4-5.1); Sodium 133 mmol/L (137-145)
[2021-12-04 09:00] VITALS: BP 93/52; PULSE 85; RESP 18; TEMP 36.6; O2SAT 99
--- NOTE | 2021-12-04 09:30 | DI.US.S_ITS ---
PROCEDURE: US OB LIMITED INDICATIONS: Hyperemesis, unable to doppler FHT OUTSIDE/PRIOR DATING DATA: Last menstrual period (LMP): 08/21/2021. LMP-based estimated date of delivery (BRITTANY): 05/28/2022. First dating scan (date and location): [facility] 10/17/2021. Estimated date of delivery (BRITTANY) from first dating scan: 06/08/2022. TECHNIQUE: Real-time scanning was performed of the fetus, with image documentation. Endovaginal scanning: No COMPARISON: None. FINDINGS: Twin living intrauterine gestations are present. Findings suggestive of a mono amniotic/dichorionic . Twin A: Presentation: Right vertex. Placenta: Placental position is posterior, without previa. Amniotic fluid index: 3.6 cm heart rate: 155 beats per minute. Maternal cervical canal: 3.8 cm long. Normal lower limit is 2.5 cm. biometrics: Callahan-rump length: 82 mm; 14 weeks 1 day BPD: 26 mm; 14 weeks 5 days Head circumference: 102 mm; 14 weeks 6 days Abdominal circumference: 79 mm; 14 weeks 3 days Femur length: 14 mm; 14 weeks 1 day Clinically estimated gestational age: 13 weeks 3 days Estimated gestational age from initial scan: 14 weeks 3 days. Limited survey of anatomy includes normal chest/diaphragm, stomach/abdomen, bilateral renal regions, cord and cord insertion, and urinary bladder/pelvis. Twin B: Presentation: Left transverse. Placenta: Placental position is posterior, without previa. Amniotic fluid index: 4.2 cm, heart rate: 160 beats per minute. Maternal cervical canal: 3.8 cm long. Normal lower limit is 2.5 cm. body rectus: New line crown-rump length: 84 mm; 14 weeks 2 days BPD: 27 mm; 14 weeks 5 days Head circumference: 98 mm; 14 weeks 4 days Abdominal circumference: 89 mm; 15 weeks 1 day Femur length: 14 mm; 14 weeks 1 day Clinically estimated gestational age: 13 weeks 3 days Estimated gestational age from initial scan: 14 weeks 4 days. Limited survey of anatomy includes normal chest/diaphragm, stomach/abdomen, bilateral renal regions, and urinary bladder/pelvis. IMPRESSION: 1. Twin living intrauterine gestations. 2. Findings suggestive of mono amniotic/dichorionic twin . Dictated by: Russell Levi M.D. on 12/04/2021 at 15:04 Approved by: Russell Levi M.D. on 12/04/2021 at 15:09
--- NOTE | 2021-12-04 09:31 | P.PN_ITS ---
Subjective Subjective Date Patient Seen: 12/04/21 Time Patient Seen: 09:15 Interval history: Patient is feeling quite a bit better this morning. Last emesis was about 3:00 a.m.. She denies nausea and has tolerated Jell-O so far today. She is feeling hungry. No cramping or bleeding. Exam Vital Signs (past 8 hours): - 12/04/21 05:00 12/04/21 09:00 Temperature 97.4 F L 97.8 F Pulse Rate 93 H 85 Respiratory Rate 16 18 Blood Pressure 107/55 L 93/52 L Pulse Oximetry 99 Oxygen Delivery Method Room Air Oxygen Flow Rate 0 Narrative Exam Narrative: General: Resting comfortably in bed, awake and alert HEENT:NC/AT. Moist oral mucosa. CV: Regular rate and rhythm, no murmur Lungs: Clear to auscultation bilaterally Abdomen: Bowel tones active. Gravid. heart tones attempted but unable to find with Doppler. Extremities: No edema Objective Labs Result Diagrams: 12/03/21 16:05 12/04/21 06:11 Labs: Laboratory Results - last 24 hr 12/03/21 12/03/21 12/03/21 15:26 16:05 16:05 WBC 9.7 RBC 3.40 L Hgb 10.9 L Hct 32.2 L MCV 94.5 MCH 32.1 MCHC 34.0 RDW 12.8 Plt Count 233 Neut % (Auto) 80.6 H Lymph % (Auto) 14.6 L [place] % (Auto) 3.9 Eos % (Auto) 0.2 L Baso % (Auto) 0.7 Neut # (Auto) 7800 H Lymph # (Auto) 1400 [place] # (Auto) 400 Eos # (Auto) 0 Baso # (Auto) 100 Sodium 136 L Potassium 3.3 L Chloride 108 H Carbon Dioxide 19 L BUN 4 L Creatinine 0.39 L Estimated GFR > 60 BUN/Creatinine Ratio 10.3 Glucose 86 Calcium 8.8 Total Bilirubin 0.4 AST 19 ALT 14 Alkaline Phosphatase 44 Total Protein 7.1 Albumin 3.8 Globulin 3.3 Albumin/Globulin Ratio 1.2 Lipase 116 Urine Color Yellow Urine Appearance Clear Urine pH 6.5 Ur Specific [place] 1.025 Urine Protein Trace H Urine Glucose (UA) Trace H Urine Ketones 3+ H Urine Occult Blood Negative Urine Nitrate Negative Urine Bilirubin Negative Urine Urobilinogen 1.0 Ur Leukocyte Esterase Trace H Urine RBC 0-1/hpf Urine WBC 5-10/hpf H Ur Squamous Epith Cells 1-5 /hpf Ur Transition Epith Cell 5-10/hpf H Amorphous Sediment 1+ Urine Bacteria Few (2-10) H Hyaline Casts 5-10/lpf Urine Mucus 2+ H Ur Culture Indicated? Specimen cultured SARS-CoV-2 (PCR) 12/03/21 12/04/21 16:42 06:11 WBC RBC Hgb Hct MCV MCH MCHC RDW Plt Count Neut % (Auto) Lymph % (Auto) [place] % (Auto) Eos % (Auto) Baso % (Auto) Neut # (Auto) Lymph # (Auto) [place] # (Auto) Eos # (Auto) Baso # (Auto) Sodium 133 L Potassium 3.8 Chloride 110 H Carbon Dioxide 18 L BUN 2 L Creatinine 0.37 L Estimated GFR > 60 BUN/Creatinine Ratio 5.4 L Glucose 79 Calcium 8.3 L Total Bilirubin AST ALT Alkaline Phosphatase Total Protein Albumin Globulin Albumin/Globulin Ratio Lipase Urine Color Urine Appearance Urine pH Ur Specific [place] Urine Protein Urine Glucose (UA) Urine Ketones Urine Occult Blood Urine Nitrate Urine Bilirubin Urine Urobilinogen Ur Leukocyte Esterase Urine RBC Urine WBC Ur Squamous Epith Cells Ur Transition Epith Cell Amorphous Sediment Urine Bacteria Hyaline Casts Urine Mucus Ur Culture Indicated? SARS-CoV-2 (PCR) Negative [facility] Medical History (Updated 12/04/21 @ 10:16 by Lisa Alva DO) Eye injury Healthy adult Intrinsic atopic dermatitis Surgical History (Updated 12/04/21 @ 10:16 by Lisa Alva DO) History of tonsillectomy Family History Sister Borderline diabetes Social History marital status: unmarried,living together number of children: 1 household members: spouse and family lives independently: Yes housing: house pets and animals: Yes (Dog - aware Toxoplasmosis) education level: high school occupational status: unemployed (emergency leave) and previously employed current occupational exposures/hazards: No special lexa needs: No seatbelt use: always water heater temp set < 120 deg: Yes (will check) working smoke detector in home: Yes fire extinguisher in home: Yes carbon monox detector in home: Yes firearms in home: Yes firearms unloaded and locked: Yes do you feel safe at home: Yes Smoking Status: Never smoker second hand exposure: No alcohol intake: former substance use type: does not use during the past year weight has: remained stable well-balanced diet: daily or most days daily servings fruits/ve-4 caffeine: Yes (200mg limit) Type(s) of exercise: walking Assessment & Plan Assessment and plan (1) Hyperemesis gravidarum: Status: Acute (2) 13 weeks gestation of : Status: Acute (3) Dichorionic diamniotic twin gestation: Qualifiers: Trimester: first trimester Qualified Code(s): O30.041 - Twin , dichorionic/diamniotic, first trimester Status: Acute Plan 26-year-old 13 weeks and 3 days with a twin complicated by hyperemesis gravidarum.? This is her fourth admission her hyperemesis. Overnight she did well with IV Solu-Medrol and IV Benadryl. This morning she denies nausea and has been able to eat some Jell-O. Will plan to continue Solu-Medrol until tomorrow morning. As long as she is still feeling well, will transition to oral prednisone tomorrow. We were unable to continue her Zofran pump in the hospital but she is receiving Zofran 4 mg q.1 hour which is the equivalent of which she was receiving in her pump at home. Continue IV Benadryl as needed nausea as well. Potassium was replaced overnight and now back to the normal range. Urine culture shows no growth so will not continue antibiotics. Unable to Doppler heart tones so will evaluate with ultrasound. Anticipate discharge home tomorrow if she is able to tolerate prednisone. Time Spent With Patient Critical Care time: I spent a total of [] minutes of critical care time on this patient's care today; this time is exclusive of procedural time. Quality VTE Deep Vein Thrombosis/Pulmonary Embolism Present on Admission: No
[2021-12-04 17:00] VITALS: BP 103/56; PULSE 90; RESP 18; TEMP 36.4; O2SAT 98
[2021-12-04 19:43] VITALS: BP 100/55; PULSE 70; RESP 16; TEMP 36.8; O2SAT 98
[2021-12-05] MEDS: ONDANSETRON 4 MG/2 ML INJ IV (05:22)
[2021-12-05] MEDS: SODIUM CHLORIDE 0.9% 1,000 ML 125 ML IV (05:22)
[2021-12-05 05:40] VITALS: BP 99/54; PULSE 91; RESP 16; TEMP 37.2; O2SAT 99
[2021-12-05 08:05] VITALS: BP 115/69; PULSE 85; RESP 21; TEMP 36.9; O2SAT 100
--- NOTE | 2021-12-05 08:47 | PM.DS.1 ---
History of Present Illness History of Present Illness Date Patient Seen: 12/05/21 Time Patient Seen: 08:48 Chief complaint: Vomiting, 13 weeks Narrative: This patient is a 26-year-old at 13 weeks gestation with twins with complicated by severe hyperemesis gravidarum. She presented to the ER on able to keep anything down despite IV fluids via PICC line, Zofran pump and promethazine suppositories at home. 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 In the ER she was found to be severely nauseated with emesis as well as hypokalemia. She was admitted for continued IV fluids, potassium replacement and control of nausea and vomiting. She denied concerns with the otherwise, specifically no cramping or bleeding. Discharge Providers Provider Date of admission: 12/03/21 19:05 Discharge Date: 12/05/21 Primary care physician: JAZ Pham Discharge provider: Lisa Alva DO Summary Hospital Course Discharge Diagnosis: Hyperemesis gravidarum Hypokalemia 13 weeks of Hospital Course: Patient was admitted to the hospital for control of nausea, vomiting and potassium replacement. Case was discussed with Dr. Velasquez, CASING MACHINE OPERATOR who was familiar with the patient from past admissions. Patient was given Solu-Medrol as well as IV Benadryl with significant improvement in nausea and vomiting. Potassium was replaced. She was able to tolerate food and fluids and transition to oral prednisone. After demonstrated tolerance of prednisone, she was discharged home with a prednisone taper which has worked very well for her in the past. She will continue her Zofran pump at home as well as IV fluids as needed. Ultrasound was performed and suggestive of mono amniotic/dichorionic twin rather than diamniotic/dichorionic twin . She has an appointment scheduled December 21 at the OB clinic. Will send a message to the OB clinic given discharge over the holiday and see if they would like her to follow-up sooner. Status at Discharge Cognitive/behavioral status at discharge: at baseline, oriented Functional status at discharge: independent ambulation Overall status at discharge: patient is back to baseline Time Spent with Patient Time spent: Less than 30 minutes Exam Vital Signs (past 8 hours): - 12/05/21 05:40 12/05/21 08:05 Temperature 98.9 F 98.5 F Pulse Rate 91 H 85 Respiratory Rate 16 21 Blood Pressure 99/54 L 115/69 Pulse Oximetry 99 100 Oxygen Delivery Method Room Air Oxygen Flow Rate 0 Narrative Exam Narrative: General: Well-appearing young woman resting comfortably in bed CV: Regular rate and rhythm, no murmur Lungs: Clear to auscultation bilaterally Abdomen: Gravid. Bowel tones active, nontender to palpation. Extremities: No edema Objective Labs Result Diagrams: 12/03/21 16:05 12/04/21 06:11 [facility] Medical History Eye injury Healthy adult Intrinsic atopic dermatitis Surgical History History of tonsillectomy Family History Sister Borderline diabetes Social History marital status: unmarried,living together number of children: 1 household members: spouse and family lives independently: Yes housing: house pets and animals: Yes (Dog - aware Toxoplasmosis) education level: high school occupational status: unemployed (emergency leave) and previously employed current occupational exposures/hazards: No special lexa needs: No seatbelt use: always water heater temp set < 120 deg: Yes (will check) working smoke detector in home: Yes fire extinguisher in home: Yes carbon monox detector in home: Yes firearms in home: Yes firearms unloaded and locked: Yes do you feel safe at home: Yes Smoking Status: Never smoker second hand exposure: No alcohol intake: former substance use type: does not use during the past year weight has: remained stable well-balanced diet: daily or most days daily servings fruits/ve-4 caffeine: Yes (200mg limit) Type(s) of exercise: walking Discharge Assessment & Plan Assessment and Plan Assessment: 26-year-old in her 13th week of with hyperemesis gravidarum. She has done well with IV Solu-Medrol to control severe nausea and vomiting and has now transitioned to oral prednisone. Plan of Treatment: Resume prednisone taper Continue Zofran pump and IV fluids via PICC line at home Follow-up with Dr. Briggs, primary OB Discharge Plan Discharge Plan Patient Disposition: Home Discharge orders & Medications Prescriptions: New prednisone 5 mg tablet See Rx Instructions .ROUTE .COMPLEX Qty: 21 0RF Rx Instructions: Take 20 mg x2 days, 10 mg x3 days then 5 mg x7 days Continued metoclopramide HCl [Reglan] 10 mg tablet 10 mg PO Q6H PRN (Reason: nausea and vomiting) Qty: 20 2RF promethazine 25 mg suppository 25 mg VT Q6H PRN (Reason: nausea and vomiting) Qty: 12 0RF Discontinued prednisone 5 mg tablet 5 mg PO DAILY Qty: 21 0RF Rx Instructions: 20 mg daily for 2 days, 10 mg daily for 3 days, 5 mg daily for 7 days promethazine 25 mg Suppository 25 mg VT Q6HR PRN (Reason: Nausea) Qty: 28 0RF prednisone 10 mg tablet 10 mg PO DAILY Qty: 3 0RF Follow up/Referrals: Danica Briggs MD [Physician] - 12/21/21 11:30 am Sandie Johansen ARNP [Primary Care Provider] - Diet/Activity/Treatments Diet: Diet as Tolerated Visit Report/Discharge Packet Instructions: Hyperemesis Gravidarum, DI for Hyperemesis Gravidarum, Prednisone Visit Report Forms: Patient Portal/API Discharge Data Primary Care Provider: Sandie Johansen Attending Provider: Lisa Alva Admchandana Date/Time: 12/03/21 19:05 Quality VTE Deep Vein Thrombosis/Pulmonary Embolism Present on Admission: No
[2021-12-05] MEDS: predniSONE 20 MG TABLET PO (08:49)
--- NOTE | 2021-12-05 10:28 | PC.NURSE ---
Pt is AxOx4, independent and cooperative. VSS, pt denies n/v and pain. Pt tolerated PO Prednisone well. Pt also tolerating light meal so pt is medically stable and ready to d/c. D/c instructions are given including information on Prednison and it is s/e etc. Also, pt was given instruction on diet, activity and worsening symptoms. Pt d/c with PICC in place due to needing IV Zofran at home. No other changes.
--- NOTE | 2021-12-05 14:00 | CM.DPC ---
DCP Discharge Home Per MD, pt with recurring Hypergravida and requiring admission to the hospital for stabilization with twin and pt was vomiting and unable to keep anything down and pt now medically stable to d/c home with ongoing Zofran Pump and home infusion. Pt thankful to d/c home as she has her upcoming wedding in a week with her fiance and no identified barriers to discharge. Per RN, discharge instruction given and pt independent in room. SW faxed pt's d/c summary to [facility] who is well aware of pt and will Resume home infusion/Zofran pump with following doctor OBGYN. Plan: Patient to d/c home with Resume [facility] and family support. FRANTZ Gilliland
== END 2021-12-05 10:34 | disposition home or self-care (01) ==
LOC: ED 18:50 → AC 19:06
PROVIDERS: Admitting Provider Family Medicine; Emergency Provider Emergency Medicine; PCP Nurse Practitioner Family; Referring Provider Emergency Medicine; Visit Provider Family Medicine
DX: O21.1 Hyperemesis gravidarum with metabolic disturbance (principal); E86.0 Dehydration; Z3A.13 13 weeks gestation of pregnancy; O30.041 Twin pregnancy, dichorionic/diamniotic, first trimester; Z20.822 Contact with and (suspected) exposure to COVID-19
CPT/HCPCS: 36415; 76815; 80048; 80053; 81001; 83690; 85025; 87086; 87635; 96361; 96365; 96375; 96376; 99217; 99219; 99224; 99284; C9803; G0378; J0696; J1200; J2405; J2765; J2920

== ENCOUNTER → 2021-12-21 12:23 | Outpatient (CLI) | payer OTHER, MEDICAID, SELFPAY ==
[2021-12-03 22:27] VITALS: BMI 27.8
[2021-12-23 20:48] LABS: Gest Age on Col Date 17.1 weeks (.); Insulin Dep Diabetes No (.); OSBR Risk 1IN 594 (.); Results Report (.); Test Results *Screen Negative* (.)
== END ==
PROVIDERS: PCP Nurse Practitioner Family; Referring Provider Obstetrics & Gynecology; Visit Provider Obstetrics & Gynecology
DX: Z34.82 Encounter for supervision of other normal pregnancy, second trimester (principal); Z3A.15 15 weeks gestation of pregnancy
CPT/HCPCS: 36415; 82105

== ENCOUNTER 2022-01-05 11:02 | Outpatient (CLI) | payer OTHER, MEDICAID, SELFPAY ==
[2021-12-03 22:27] VITALS: BMI 27.8
[2022-01-05 11:48] LABS: Appearance Urine UA CLEAR; Bilirubin Urine UA NEGATIVE (NEGATIVE); Color Urine UA YELLOW; Glucose Urine UA NEGATIVE (Negative); Ketones Urine UA NEGATIVE (NEGATIVE); Leukocyte Esterase Urine UA 1+ (NEGATIVE); Nitrite Urine UA NEGATIVE (Negative); Occult Blood Urine UA NEGATIVE (Negative); Protein Urine UA NEGATIVE (Negative); Urobilinogen Urine UA 0.2 E.U./dL (0.2)
[2022-01-05 11:57] LABS: Bacteria Urine Few (2-10); Culture Indicated Urine Specimen Cultured; RBC Urine None Seen (0-5/HPF); Squamous Epithelial Cell Urine 1-5 /HPF (0-5/HPF); WBC Urine 1-5/HPF (0-5/HPF)
== END 2022-01-05 12:00 | disposition home or self-care (01) ==
LOC: LABOR 11:10 → OB 01-11 09:20
PROVIDERS: PCP Nurse Practitioner Family; Referring Provider Obstetrics & Gynecology; Visit Provider Obstetrics & Gynecology
DX: O30.002 Twin pregnancy, unspecified number of placenta and unspecified number of amniotic sacs, second trimester (principal); O47.02 False labor before 37 completed weeks of gestation, second trimester; Z3A.18 18 weeks gestation of pregnancy
CPT/HCPCS: 59050; 81001; 87086; G0378; G0379

== ENCOUNTER → 2022-01-30 10:31 | Outpatient (CLI) | payer OTHER, MEDICAID, SELFPAY ==
[2021-12-03 22:27] VITALS: BMI 27.8
--- NOTE | 2022-01-30 10:34 | DI.US.S_ITS ---
PROCEDURE: US OB >= 14 WEEKS FETUS INDICATIONS: anatomy scan OUTSIDE/PRIOR DATING DATA: Last menstrual period (LMP): 08/21/2021. LMP-based estimated date of delivery (BRITTANY): 05/28/2022. First dating scan (date and location): 10/17/2021. Estimated date of delivery (BRITTANY) from first dating scan: 06/08/2022. The calculations are made using the ultrasound BRITTANY of 06/08/2022. TECHNIQUE: Real-time scanning was performed of the fetuses, with image documentation and biometric measurements. COMPARISON: [facility], , OB >= 14 WEEKS FETUS, 01/24/2022, 17:43. FINDINGS: General: An intrauterine dichorionic-diamniotic twin is present, as evidenced by separate placentas, differing sexes, or an intervening membrane of greater than 2 mm. Amniotic fluid index (composite): Fetus A deepest pocket 6.9 cm. Fetus B deepest pocket 5.6 cm Maternal cervical canal: 4.6 cm long. Normal lower limit is 2.5 cm. FETUS A: Fetus is located on the maternal right side, and is in vertex presentation. Largest amniotic fluid pocket: 6.9 cm; normal range is 2-8 cm. Placental position is posterior, without previa. heart rate: 162 beats per minute. biometrics: Biparietal diameter: 5.4 cm. 22 weeks 3 days. Head circumference: 19.6 cm. 21 weeks 6 days. Abdominal circumference: 17.6 cm. 22 weeks 3 days. Femur length: 3.7 cm. 21 weeks 6 days. Composite gestational age from initial scan: 21 weeks 4 days Composite gestational age from present scan: 22 weeks 1 day Estimated weight and percentile: 482 g, 76th percentile. Anatomic survey: Neuro: Ventricles are normal at less than 10 mm. Cisterna magna is normal at 3-11 mm. Cerebellum is normal in size and morphology. Nuchal skin fold: Normal at less than 6 mm between 14 and 21 weeks gestational age. Face: Nose and lips, facial profile are normal. Spine: No evidence for spina bifida. Heart: 4 chambered heart is present, with normal ventricular outflow tracts. Diaphragm: Diaphragm is intact. Stomach: Left-sided stomach is present. Kidneys: No hydronephrosis. Normal ranges are less than 5 mm in 2nd trimester, less than 7 mm in 3rd trimester. Cord: 3 vessel cord has orthotopic insertion. Bladder: Normal in size. Extremities: All 4 extremities are visualized. FETUS B: Fetus is located on the maternal left side, and is in vertex presentation. Largest amniotic fluid pocket: 5.6 cm; normal range is 2-8 cm. Placental position is posterior , without previa. heart rate: 157 beats per minute. biometrics: Biparietal diameter: 5.5 cm. 22 weeks 6 days Head circumference: 19.8 cm. 22 weeks 0 days Abdominal circumference: 18.0 cm. 22 weeks 6 days Femur length: 3.7 cm. 21 weeks 5 days. Composite gestational age from initial scan: 21 weeks 4 days Composite gestational age from present scan: 22 weeks 3 days Estimated weight and percentile: 498 g, 84th percentile Anatomic survey: Neuro: Ventricles are normal at less than 10 mm. Cisterna magna is normal at 3-11 mm. Cerebellum is normal in size and morphology. Nuchal skin fold: Normal at less than 6 mm between 14 and 21 weeks gestational age. Face: Nose and lips, facial profile are normal. Spine: No evidence for spina bifida. Heart: 4 chambered heart is present, with normal ventricular outflow tracts. Diaphragm: Diaphragm is intact. Stomach: Left-sided stomach is present. Kidneys: No hydronephrosis. Normal ranges are less than 5 mm in 2nd trimester, less than 7 mm in 3rd trimester. Cord: 3 vessel cord has orthotopic insertion. Bladder: Normal in size. Extremities: All 4 extremities are visualized. Measurement variability for biometric dating: +/- 7 days from 14 weeks to 15 weeks 6 days gestation, +/- 10 days from 16 weeks to 21 weeks 6 days gestation, +/- 2 weeks from 22 weeks to 27 weeks 6 days gestation, +/- 3 weeks for 28 weeks gestation or later. weight reference: 4500 g or EFW >90/95% is considered macrosomia or large for gestational age. EFW <10% is small for gestational age. EFW 5% or less is considered intra-uterine growth restriction. IMPRESSION: 1. Live intrauterine twin diamniotic dichorionic measuring 21-22 weeks. 2. anatomy was fully visualized in both twins and appears normal. We strive to produce accurate, complete, and clear reports of imaging services. To assist us in improving patient care, this report was composed using standard report templates and voice recognition software. Therefore, it may contain abnormal punctuation, insertions and/or omissions. Occasional wrong-word or sound-alike substitutions may occur. Though we review the report and make efforts to correct it, we do recommend that the report be read carefully in proper context to recognize any text inaccuracies. Dictated by: Mick Norris M.D. on 01/30/2022 at 14:22 Approved by: Mick Norris M.D. on 01/30/2022 at 16:23
== END ==
PROVIDERS: PCP Nurse Practitioner Family; Referring Provider Obstetrics & Gynecology; Visit Provider Obstetrics & Gynecology
DX: Z34.82 Encounter for supervision of other normal pregnancy, second trimester (principal); Z3A.22 22 weeks gestation of pregnancy
CPT/HCPCS: 76811; 76812

== ENCOUNTER 2022-02-13 14:22 | Emergency (ER) | payer OTHER, MEDICAID, SELFPAY ==
[2021-12-03 22:27] VITALS: BMI 27.8
[2022-02-13 14:57] VITALS: BP 107/59; PULSE 79; RESP 22; TEMP 37.1; O2SAT 97
--- NOTE | 2022-02-13 17:26 | PC.NURSE ---
Pt scheduled tomorrow with DI nurse for 829. Pt will return for appointment.
== END 2022-02-13 17:27 | disposition left against medical advice (07) ==
PROVIDERS: Emergency Provider Emergency Medicine; PCP Nurse Practitioner Family
CPT/HCPCS: 99281

== ENCOUNTER → 2022-02-14 08:20 | Outpatient (CLI) | payer OTHER, MEDICAID, SELFPAY ==
[2021-12-03 22:27] VITALS: BMI 27.8
--- NOTE | 2022-02-14 08:22 | DI.RAD.S_ITS ---
PROCEDURE: FL GUIDED PICC PLACEMENT INDICATIONS: PICC line placement COMPARISON: None. FINDINGS: PICC was placed by the intravenous therapy team from the left side. Fluoroscopic spot film demonstrates the tip of PICC projecting to the area of SVC. IMPRESSION: Tip of PICC projects to the area of SVC. Dictated by: Elizabeth Morrison M.D. on 02/22/2022 at 17:59 Approved by: Elizabeth Morrison M.D. on 02/22/2022 at 17:59
--- NOTE | 2022-02-14 09:14 | PC.NURSE ---
Left arm PICC pulled with no problems. Line intact, no bleeding from site and pressure held for 5 min over site. Dressing applyed.
== END ==
PROVIDERS: PCP Nurse Practitioner Family; Referring Provider Obstetrics & Gynecology; Visit Provider Obstetrics & Gynecology
DX: O21.0 Mild hyperemesis gravidarum (principal); Z45.2 Encounter for adjustment and management of vascular access device
CPT/HCPCS: 36573

== ENCOUNTER → 2022-02-21 14:23 | Outpatient (CLI) | payer OTHER, MEDICAID, SELFPAY ==
[2021-12-03 22:27] VITALS: BMI 27.8
[2022-02-21 16:11] LABS: Glucose 93 mg/dL (70-100)
== END ==
PROVIDERS: PCP Nurse Practitioner Family; Referring Provider Specialist; Visit Provider Specialist
DX: R81 Glycosuria (principal)
CPT/HCPCS: 36415; 82947

== ENCOUNTER → 2022-02-27 16:07 | Outpatient (CLI) | payer OTHER, MEDICAID, SELFPAY ==
[2021-12-03 22:27] VITALS: BMI 27.8
--- NOTE | 2022-02-27 16:11 | DI.RAD.S_ITS ---
PROCEDURE: XR CHEST 1V INDICATIONS: PICC line check, leakage issue check for placement TECHNIQUE: One view of the chest was acquired. COMPARISON: [facility], , XR CHEST FOR PICC 1V, 10/25/2021, 9:20. FINDINGS: Surgical changes and devices: The tip of the left PICC is in the upper SVC. Lungs and pleura: Lungs are clear. No pleural effusions or pneumothorax. Mediastinum: Mediastinal contours appear normal. Heart size is normal. Bones and chest wall: No suspicious bony lesions. Overlying soft tissues appear unremarkable. IMPRESSION: No acute cardiopulmonary findings. Dictated by: Reene Pineda M.D. on 02/27/2022 at 16:52 Approved by: Renee Pineda M.D. on 02/27/2022 at 16:52
--- NOTE | 2022-02-27 17:19 | PC.NURSE ---
Pt sent to radiology from Dr office for possible blood in pt picc line. cxr done with picc line noted to be upper svc. Both lumens flushed with hep and saline with no leaking or bleeding noted from picc line. dressing changed new iv hubs changed. able to draw back blood with no problems. all done using sterile technique.
== END ==
PROVIDERS: PCP Nurse Practitioner Family; Referring Provider Obstetrics & Gynecology; Visit Provider Obstetrics & Gynecology
DX: O21.0 Mild hyperemesis gravidarum (principal); Z45.2 Encounter for adjustment and management of vascular access device
CPT/HCPCS: 71045

== ENCOUNTER 2022-03-20 15:29 | Outpatient (CLI) | payer OTHER, MEDICAID, SELFPAY ==
[2021-12-03 22:27] VITALS: BMI 27.8
[2022-03-20] MEDS: LACTATED RINGERS 1,000 ML 1000 ML IV (16:13)
[2022-03-20 16:18] LABS: Appearance Urine UA CLEAR; Bilirubin Urine UA NEGATIVE (NEGATIVE); Color Urine UA YELLOW; Glucose Urine UA TRACE g/dL (Negative); Ketones Urine UA 3+ (NEGATIVE); Leukocyte Esterase Urine UA 2+ (NEGATIVE); Nitrite Urine UA NEGATIVE (Negative); Occult Blood Urine UA NEGATIVE (Negative); Protein Urine UA 2+ (Negative); Specific Gravity Urine UA 1.025 (1.000-1.035)
[2022-03-20 16:29] LABS: RBC Urine 0-1/HPF (0-5/HPF); WBC Urine 10-30/HPF (0-5/HPF)
[2022-03-20 16:30] LABS: Bacteria Urine Moderate (10-30); Culture Indicated Urine Specimen Cultured; Mucus Urine 2+ (Negative); Squamous Epithelial Cell Urine 1-5 /HPF (0-5/HPF); Transitional Epi Cells Urine 10-30/HPF (0-5/HPF)
[2022-03-20] MEDS: NIFEdipine 10 MG CAPSULE PO ×4 (16:55→18:36)
[2022-03-20] MEDS: CEFAZOLIN 2 GM/100 ML PREMIX 100 ML IV (17:05)
--- NOTE | 2022-03-20 17:47 | DI.US.S_ITS ---
PROCEDURE: US OB FOLLOW UP INDICATIONS: twin gestation, contractions OUTSIDE/PRIOR DATING DATA: Last menstrual period (LMP): 08/21/2021. LMP-based estimated date of delivery (BRITTANY): 05/28/2022. First dating scan (date and location): 10/17/2021. Estimated date of delivery (BRITTANY) from first dating scan: 06/08/2022. TECHNIQUE: Real-time scanning was performed of the fetuses, with image documentation and biometric measurements. Endovaginal scanning: None COMPARISON: None. FINDINGS: General: An intrauterine dichorionic-diamniotic twin is present, as evidenced by separate placentas, differing sexes, or an intervening membrane of greater than 2 mm. Composite amniotic fluid index: Not obtained. Maternal cervical canal: 3.1 cm long. Normal lower limit is 2.5 cm. FETUS A: Fetus is located on the maternal right side, and is in vertex presentation. Largest amniotic fluid pocket: 4.4 cm, normal is 2-8 cm. Placental position is posterior , without previa. heart rate: 155 beats per minute. biometrics: Biparietal diameter: 7.4 cm, 29 week 6 day Head circumference: 27.3 cm, 29 week 6 day Abdominal circumference: 25.1 cm, 29 week 2 day Femur length: 5.4 cm, 28 week 5 day Clinically estimated gestational age: 28 week 4 day Composite gestational age from present scan: 29 week 3 day Estimated weight and percentile: 1350 g, 61st percentile FETUS B: Fetus is located on the maternal left side, and is in breech presentation. Largest amniotic fluid pocket: 4.8 cm, normal is 2-8 cm. Placental position is posterior, without previa. heart rate: 160 beats per minute. biometrics: Biparietal diameter: 7.5 cm, 30 week 2 day Head circumference: 27.2 cm, 29 week 5 day Abdominal circumference: 25.6 cm, 29 week 6 day Femur length: 5.3 cm, 28 week 2 day Clinically estimated gestational age: 28 week 4 day Composite gestational age from present scan: 29 week 4 day Estimated weight and percentile: 1380 g, 67th percentile IMPRESSION: Twin gestation consistent with a 29 week 4 day gestation by current ultrasound Approved by: Mt Perez M.D. on 03/20/2022 at 18:25
--- NOTE | 2022-03-21 10:10 | P.TNLD_ITS ---
Visit Information Visit Information Date of evaluation: 03/20/22 Primary OB Provider: Danica Briggs On-call OB Provider: Danica Briggs Comments/Additional reasons for admission: Patient is a 26-year-old 2 para 1 at 28 weeks gestation with twins. She presents with severe nausea and vomiting unable to keep anything solid down for 4-5 days. She is on a continuous Zofran pump. She does IV fluid infusion at home. [facility] Medical History Eye injury Healthy adult Intrinsic atopic dermatitis Surgical History History of tonsillectomy Family History Sister Borderline diabetes Social History marital status: unmarried,living together number of children: 1 household members: spouse and family lives independently: Yes housing: house pets and animals: Yes (Dog - aware Toxoplasmosis) education level: high school occupational status: unemployed (emergency leave) and previously employed current occupational exposures/hazards: No special lexa needs: No seatbelt use: always water heater temp set < 120 deg: Yes (will check) working smoke detector in home: Yes fire extinguisher in home: Yes carbon monox detector in home: Yes firearms in home: Yes firearms unloaded and locked: Yes do you feel safe at home: Yes Smoking Status: Never smoker second hand exposure: No alcohol intake: former substance use type: does not use during the past year weight has: remained stable well-balanced diet: daily or most days daily servings fruits/ve-4 caffeine: Yes (200mg limit) Type(s) of exercise: walking Exam Narrative Exam Narrative: Generally: Patient is sitting up in bed, vomiting, Fundal height: 33 cm Cervix: Fingertip/long/posterior UA: Positive for leukocyte esterase, bacteria, and nitrites Objective Labs Labs: Laboratory Results - last 24 hr 03/20/22 15:45 Urine Color Yellow Urine Appearance Clear Urine pH 6.0 Ur Specific [place] 1.025 Urine Protein 2+ H Urine Glucose (UA) Trace H Urine Ketones 3+ H Urine Occult Blood Negative Urine Nitrate Negative Urine Bilirubin Negative Urine Urobilinogen 1.0 Ur Leukocyte Esterase 2+ H Urine RBC 0-1/hpf Urine WBC 10-30/hpf H Ur Squamous Epith Cells 1-5 /hpf Ur Transition Epith Cell 10-30/hpf H Urine Bacteria Moderate (10-30) H Urine Mucus 2+ H Ur Culture Indicated? Specimen cultured Evaluation Evaluation Baseline heart rate: 135 Variability: Moderate (11-25) (X2) monitor accelerations: Present (X2) Monitor Decelerations: Absent Contraction Frequency (minutes): 4 Uterine Contraction Intensity: Mild Status: Category l Diagnosis, Plan/Disposition Plan/Disposition Plan: Assessment: 26-year-old 2 para 1 at 28 weeks gestation with twins with hyper emesis and mild uterine activity UTI Plan: IV fluids Nifedipine protocol Ultrasound for growth Ancef 2 g IV for UTI, patient unable to keep down oral antibiotic Will follow-up with [facility] for TPN and IV antibiotics OB Disposition: home
== END 2022-03-20 18:50 | disposition home or self-care (01) ==
LOC: OB 03-24 08:29
PROVIDERS: PCP Nurse Practitioner Family; Referring Provider Obstetrics & Gynecology; Visit Provider Obstetrics & Gynecology
DX: O21.0 Mild hyperemesis gravidarum (principal); O23.43 Unspecified infection of urinary tract in pregnancy, third trimester; N39.0 Urinary tract infection, site not specified; O30.003 Twin pregnancy, unspecified number of placenta and unspecified number of amniotic sacs, third trimester; Z3A.28 28 weeks gestation of pregnancy
CPT/HCPCS: 59025; 59050; 76812; 76816; 76817; 81001; 87086; 96360; G0378; G0379; J0690

== ENCOUNTER 2022-03-21 17:05 | Outpatient (CLI) | payer OTHER, MEDICAID, SELFPAY ==
[2021-12-03 22:27] VITALS: BMI 27.8
[2022-03-21] MEDS: NIFEdipine 10 MG CAPSULE SL ×4 (17:47→18:59)
--- NOTE | 2022-03-21 20:27 | P.TNLD_ITS ---
Visit Information Visit Information Date of evaluation: 03/21/22 Primary OB Provider: Danica Briggs On-call OB Provider: Nya Grajeda Comments/Additional reasons for admission: 26yo at 28w5d here with hyperemesis and contractions. Pt reports ongoing issues with severe nausea and vomiting. She is getting home infusions, and had 2L this morning. She is also on a Zofran pump. She reports contractions starting this morning at around 6am, now every 2-3 minutes. She denies any vaginal bleeding or LOF. She is feeling her babies move frequently. [facility] Medical History Eye injury Healthy adult Intrinsic atopic dermatitis Surgical History History of tonsillectomy Family History Sister Borderline diabetes Social History marital status: unmarried,living together number of children: 1 household members: spouse and family lives independently: Yes housing: house pets and animals: Yes (Dog - aware Toxoplasmosis) education level: high school occupational status: unemployed (emergency leave) and previously employed current occupational exposures/hazards: No special lexa needs: No seatbelt use: always water heater temp set < 120 deg: Yes (will check) working smoke detector in home: Yes fire extinguisher in home: Yes carbon monox detector in home: Yes firearms in home: Yes firearms unloaded and locked: Yes do you feel safe at home: Yes Smoking Status: Never smoker second hand exposure: No alcohol intake: former substance use type: does not use during the past year weight has: remained stable well-balanced diet: daily or most days daily servings fruits/ve-4 caffeine: Yes (200mg limit) Type(s) of exercise: walking Evaluation Evaluation Comments: Twin A: baseline 120, moderate variability, accels present, no decels; reactive Twin B: baseline 130, moderate variability, accels present, no decels; reactive [place]: Initially with contractions every 2 minutes, by discharge very intermittent Diagnosis, Plan/Disposition Final Diagnosis (1) Hyperemesis gravidarum: Status: Acute (2) Dichorionic diamniotic twin gestation: Status: Acute (3) labor: Status: Acute Plan/Disposition Plan: 26yo at 28w5d with known hyperemesis here with contractions and ongoing dehydration. Received additional 1L today, encouraged her to get another 2L of fluids tomorrow at home. Pt reported feeling improved after infusion here. Received total of 4 doses of 10mg Nifedipine as well, and contractions abated. Prescribed for PRN use at home, although likely will ultimately need scheduled Nifedipine XR if unable to keep up with hydration. Cervical length completed yesterday was > 3. Primary OB, Dr Briggs, updated as well. They are attempting to get her set-up with TPN as well. Safe for d/c home at this point. OB Disposition: home
== END 2022-03-21 21:00 | disposition home or self-care (01) ==
LOC: LABOR 20:26 → OB 03-24 08:31
PROVIDERS: PCP Nurse Practitioner Family; Referring Provider Family Medicine; Visit Provider Family Medicine
DX: O21.0 Mild hyperemesis gravidarum (principal); O30.043 Twin pregnancy, dichorionic/diamniotic, third trimester; O60.03 Preterm labor without delivery, third trimester; Z3A.28 28 weeks gestation of pregnancy
CPT/HCPCS: 59025; 59050; 96360; G0378; G0379

== ENCOUNTER 2022-04-03 09:52 | Outpatient (CLI) | payer OTHER, MEDICAID, SELFPAY ==
[2021-12-03 22:27] VITALS: BMI 27.8
== END 2022-04-03 11:40 | disposition home or self-care (01) ==
LOC: LABOR 09:56 → OB 04-12 12:15
PROVIDERS: PCP Nurse Practitioner Family; Referring Provider Obstetrics & Gynecology; Visit Provider Obstetrics & Gynecology
DX: O36.8130 Decreased fetal movements, third trimester, not applicable or unspecified (principal); O30.043 Twin pregnancy, dichorionic/diamniotic, third trimester; O47.03 False labor before 37 completed weeks of gestation, third trimester; Z3A.30 30 weeks gestation of pregnancy
CPT/HCPCS: 59025; 59050; G0378; G0379

== ENCOUNTER 2022-04-05 11:20 | Observation (INO) | payer OTHER, MEDICAID, SELFPAY ==
[2021-12-03 22:27] VITALS: BMI 27.8
[2022-04-05] MEDS: LACTATED RINGERS 1,000 ML 1000 ML IV (13:00)
== END 2022-04-05 14:45 | disposition home or self-care (01) ==
PROVIDERS: Admitting Provider Obstetrics & Gynecology; PCP Nurse Practitioner Family; Referring Provider Obstetrics & Gynecology; Visit Provider Obstetrics & Gynecology
DX: O30.003 Twin pregnancy, unspecified number of placenta and unspecified number of amniotic sacs, third trimester (principal); O47.03 False labor before 37 completed weeks of gestation, third trimester; Z3A.30 30 weeks gestation of pregnancy
CPT/HCPCS: 59050; 84112; 96360; G0378; G0379

== ENCOUNTER 2022-04-19 00:43 | Emergency (ER) | payer OTHER, MEDICAID, SELFPAY ==
[2021-12-03 22:27] VITALS: BMI 27.8
--- NOTE | 2022-04-19 00:58 | ED.GENADULT ---
HPI - General Adult General Chief complaint: Recheck/Abnormal Lab/Rx Stated complaint: TUBING IN PICKLINE BROKE Time Seen by Provider: 04/19/22 00:58 History of Present Illness HPI narrative: Patient is a 26-year-old female with history of SAB 2, hyperemesis gravidarum, currently with twins at 33 week she has a PICC line placed she does get IV fluids nausea medication. was flushing a PICC line tonight the PICC line just snapped. She says she just ate lasagna. She is not nauseous or vomiting. But did not want to leave it on done. No fevers or chills. Related Data Previous Rx's Medication Instructions Recorded ondansetron HCl 4 mg tablet 4 mg PO DAILY #30 tabs 01/13/22 prednisolone sodium phosphate 15 15 mg PO DAILY #30 tabs 01/24/22 mg disintegrating tablet metoclopramide HCl 10 mg tablet 10 mg PO Q6H PRN nausea and 03/18/22 (Reglan) vomiting #60 tabs scopolamine base 1 mg over 3 days 1 patch transdermal Q72H PRN 03/19/22 transdermal patch nausea and vomiting #12 ea nifedipine 10 mg capsule 10 mg sublingual Q20MIN #30 caps 03/21/22 Double electric breast pump 1 ea topical .prn #1 ea 04/06/22 promethazine 25 mg tablet 25 mg PO Q4-6H PRN nausea and 04/10/22 vomiting #20 tabs Allergies Allergy/AdvReac Type Severity Reaction Status Date / Time latex Allergy Verified 04/06/22 14:31 erythromycin base AdvReac Intermediate Verified 04/06/22 14:31 Review of Systems Review of Systems Narrative: GENERAL: Denies chills,fever HEENT: Denies throat pain RESPIRATORY: Denies dyspnea, cough, wheezing CARDIOVASCULAR: Denies chest pain, palpitations GASTROINTESTINAL: Denies nausea, vomiting MUSCULOSKELETAL: Denies extremity pain, injury SKIN: No rash, no laceration, no pruritus NEUROLOGIC: Denies weakness, dizziness, headache, numbness 8 point review of systems is negative except for those stated above and HPI Patient History Medical History Eye injury Healthy adult Intrinsic atopic dermatitis Surgical History History of tonsillectomy Family History Sister Borderline diabetes Social History marital status: unmarried,living together number of children: 1 household members: spouse and family lives independently: Yes housing: house pets and animals: Yes (Dog - aware Toxoplasmosis) education level: high school occupational status: unemployed (emergency leave) and previously employed current occupational exposures/hazards: No special lexa needs: No seatbelt use: always water heater temp set < 120 deg: Yes (will check) working smoke detector in home: Yes fire extinguisher in home: Yes carbon monox detector in home: Yes firearms in home: Yes firearms unloaded and locked: Yes do you feel safe at home: Yes Smoking Status: Never smoker second hand exposure: No alcohol intake: former substance use type: does not use during the past year weight has: remained stable well-balanced diet: daily or most days daily servings fruits/ve-4 caffeine: Yes (200mg limit) Type(s) of exercise: walking Smoking Status: Never smoker alcohol intake frequency: holidays/special occasions only Substance Use Type: does not use Exam Initial Vital Signs Initial Vital Signs: Vital Signs Temperature 98.1 F 04/19/22 01:05 Pulse Rate 81 04/19/22 01:05 Respiratory Rate 18 04/19/22 01:05 Blood Pressure 124/70 04/19/22 01:05 Pulse Oximetry 98 04/19/22 01:05 Oxygen Delivery Method 04/19/22 01:05 GENERAL: Well-appearing, well-nourished and in no acute distress. CARDIOVASCULAR: peripheral pulses in tact, cap refill <2 sec RESPIRATORY: No respiratory distress, speaks in full sentences without difficulty EXTREMITIES: Normal range of motion, no clubbing or edema. Neurovascularly intact NEUROLOGICAL: Cranial nerves II through XII grossly intact. Normal gait and speech. SKIN: Left PICC line in place however of plastic tubing is obviously broken. Course Vital Signs Vital signs: Vital Signs - 8 hr 04/19/22 01:05 Temperature 98.1 F Pulse Rate 81 Respiratory Rate 18 Blood Pressure 124/70 Pulse Oximetry 98 Oxygen Delivery Method Room Air Medical Decision Making MDM Narrative Medical decision making narrative: PICC line pulled easily. Patient is not having any sort of symptoms does not need blood work or an IV at this time. He is to have PICC line placed as an outpatient tomorrow. Discharge Plan Departure Patient Disposition: Home Clinical Impression: Bleeding from PICC line Activity Restrictions/Additional Instructions: *You have been diagnosed with PICC line problem *What to do: Please call Dr. Briggs tomorrow he will need a new PICC line as soon as possible *Continue to take medications as directed *Follow up with your primary care provider in 2-3 days or call [phone] *Return to ER if you should have any new, worsening or concerning symptoms Prescriptions: No Action ondansetron HCl 4 mg tablet 4 mg PO DAILY Qty: 30 0RF metoclopramide HCl [Reglan] 10 mg tablet 10 mg PO Q6H PRN (Reason: nausea and vomiting) Qty: 60 3RF scopolamine base 1 mg over 3 days patch 3 day 1 patch transdermal Q72H PRN (Reason: nausea and vomiting) Qty: 12 6RF Double electric breast pump 1 ea topical .prn Qty: 1 0RF Rx Instructions: BRITTANY 06/08/22 promethazine 25 mg tablet 25 mg PO Q4-6H PRN (Reason: nausea and vomiting) Qty: 20 1RF prednisolone sodium phosphate 15 mg tablet,disintegrating 15 mg PO DAILY Qty: 30 0RF nifedipine 10 mg Capsule 10 mg sublingual Q20MIN Qty: 30 0RF Referrals: Sandie Johansen ARNP [Primary Care Provider] - Visit Report Forms: Patient Portal/API
[2022-04-19 01:05] VITALS: BP 124/70; PULSE 81; RESP 18; TEMP 36.7; O2SAT 98
== END 2022-04-19 01:06 | disposition home or self-care (01) ==
PROVIDERS: Emergency Provider Emergency Medicine; PCP Nurse Practitioner Family
DX: T82.838A Hemorrhage due to vascular prosthetic devices, implants and grafts, initial encounter (principal); Z3A.33 33 weeks gestation of pregnancy
CPT/HCPCS: 99281

== ENCOUNTER 2022-04-26 15:30 | Observation (INO) | payer OTHER, MEDICAID, SELFPAY ==
[2021-12-03 22:27] VITALS: BMI 27.8
--- NOTE | 2022-04-26 17:26 | PM.OBTRLD ---
Visit Information Visit Information Date of evaluation: 04/26/22 Primary OB Provider: Gavin Olguin On-call OB Provider: Astrid Gaxiola Reason for Evaluation: Yes other Comments/Additional reasons for admission: Evaluate for pre-term labor 26 yo with Di-di twin , called feeling uncomfortable contractions since last night, rating 7/10, and brought in for evaluation. She reported that contractions feel more uncomfortable than past. Brought in for evaluation. She reports 3 days ago, Sunday she had diarrhea and contractions that both started at 2:00 a.m.. Contractions stopped about 8 hours later but she continued with diarrhea through the day. Diarrhea stopped by the next day. She had recently come off her IV Zofran since she no longer has PICC line in place. Wonders if this was a rebound from the constipation from the Zofran. She is still using Phenergan. she does feel that she has been able to hydrate fine with using the Phenergan. No change in her nausea. She has had hyperemesis this , having had a PICC line in place receiving IV fluids and IV Zofran as well as being on Phenergan at home. She did have a small amount of emesis earlier today, then few bouts of dry heaves. Feels she did not bring up much liquids since only emesis once and that she is overall hydrated today. She reports increased contractions since last night, uncomfortable. Also bilateral mid back discomfort, constant discomfort. She did not try any Tylenol for the back pain, was uncertain if she could use any. Back discomfort made it difficult to sleep as well yesterday. Denies dysuria. She does note some increased urinary frequency. No leakage of fluid or vaginal bleeding. She did not do a Glucola due to the hyperemesis. No other problems. A random postprandial fingerstick glucose was normal. No GDM with her prior . Twin presentation has been vertex/breech. She desired attempting vaginal deliveries for this with attempted version of 2nd twin if not descended as vertex Vital Signs Vital Signs: Temp 36.9C BP 119/77, Pulse 101 PFSH Medical History Eye injury Healthy adult Intrinsic atopic dermatitis Surgical History History of tonsillectomy Family History Sister Borderline diabetes Social History marital status: unmarried,living together number of children: 1 household members: spouse and family lives independently: Yes housing: house pets and animals: Yes (Dog - aware Toxoplasmosis) education level: high school occupational status: unemployed (emergency leave) and previously employed current occupational exposures/hazards: No special lexa needs: No seatbelt use: always water heater temp set < 120 deg: Yes (will check) working smoke detector in home: Yes fire extinguisher in home: Yes carbon monox detector in home: Yes firearms in home: Yes firearms unloaded and locked: Yes do you feel safe at home: Yes Smoking Status: Never smoker second hand exposure: No alcohol intake: former substance use type: does not use during the past year weight has: remained stable well-balanced diet: daily or most days daily servings fruits/ve-4 caffeine: Yes (200mg limit) Type(s) of exercise: walking Exam Narrative Exam Narrative: General: Well-appearing female in no acute distress back: Back:Bilateral mid to lower back discomfort with palpation and positive CVA tenderness normal external genitalia Vagina: Normal discharge Cervix: Normal in appearance, FN collected digital exam: 1 cm/long Objective Labs Result Diagrams: 04/26/22 16:40 04/26/22 16:40 Evaluation Evaluation Variability: Moderate (11-25) (x2) monitor accelerations: Present Monitor Decelerations: Absent Contraction Frequency (minutes): 5 Category of Tracing: Reactive (x2) Status: Category l (x2) Cervical dilation (cm): 1 Cervical effacement (%): 0 Comments: EFM: Twin a baseline 135, moderate variability, positive for accelerations, no decelerations, reactive Twin B basongeline 145, moderate variability, positive for accelerations, no decelerations, reactive NST. [place] contractions every 2-8 minutes initially, spaced to 8 minutes but then returned frequent every 5 minutes. Cervix 1/long, kike-check in 2 hours 1/long but softer FFN +, collected prior to cervical exam Diagnosis, Plan/Disposition Plan/Disposition Plan: 26yo with contractions initially irregular but became frequent and persistent out every few minutes, despite IV hydration IV hydrated, without improvement Urinalysis ordered, overall negative, urine culture sent FFN collected, + With contractins frequent, patient given nifedipine protocol, 10 mg p.o. every 20 minutes x4. Contractions have started to space after 4th dose @ 1999 Betamethasone 12 mg IM given @. Cervix long @ 1730, @ 1935 Will observe overnight OB Disposition: other (observe ovenight for possible labor)
[2022-04-26 17:30] LABS: Appearance Urine UA CLEAR; Bilirubin Urine UA NEGATIVE (NEGATIVE); Color Urine UA YELLOW; Glucose Urine UA NEGATIVE (Negative); Ketones Urine UA NEGATIVE (NEGATIVE); Leukocyte Esterase Urine UA TRACE (NEGATIVE); Nitrite Urine UA NEGATIVE (Negative); Occult Blood Urine UA NEGATIVE (Negative); Protein Urine UA NEGATIVE (Negative); Urobilinogen Urine UA 0.2 E.U./dL (0.2)
[2022-04-26 17:42] LABS: Bacteria Urine Occasional (0-1); Culture Indicated Urine Specimen Cultured; RBC Urine None Seen (0-5/HPF); Squamous Epithelial Cell Urine 5-10 /HPF (0-5/HPF); WBC Urine 5-10/HPF (0-5/HPF)
[2022-04-26] MEDS: ACETAMINOPHEN 325 MG TABLET 650 MG PO (17:49)
[2022-04-26] MEDS: PROMETHAZINE 25 MG TABLET PO (17:51)
[2022-04-26 18:18] LABS: Fetal Fibronectin Positive
[2022-04-26] MEDS: NIFEdipine 10 MG CAPSULE PO ×4 (18:48→19:55)
[2022-04-26 19:37] LABS: Add Manual Diff / Slide Review NO; Basophils Absolute Auto 0 /uL (0-100); Basophils Percent Auto 0.2 % (0-2); Eosinophils Absolute Auto 100 /uL (0-450); Eosinophils Percent Auto 1.2 % (2-4); Hematocrit 28.3 % (36-46); Hemoglobin 9.1 g/dL (12.0-16.0); Lymphocytes Absolute Auto 1400 /uL (1100-4500); Lymphocytes Percent Auto 16.7 % (25-40); Mean Corpuscular HGB Conc 32.2 % (30-36); Mean Corpuscular Hemoglobin 26.3 PG (26-34); Mean Corpuscular Volume 81.5 fL (80-100); Monocytes Absolute Auto 500 /uL (0-900); Monocytes Percent Auto 6.2 % (3-14); Neutrophils Absolute Auto 6500 /uL (1500-7000); Neutrophils Percent Auto 75.7 % (50-75); Platelet Count 251 X10^3/uL (150-400); Red Blood Cell Count 3.47 X10^6/uL (4.0-5.2); Red Cell Distribution Width 15.4 % (11.6-14.8); White Blood Cell Count 8.6 X10^3/uL (4.5-11.0)
[2022-04-26 19:54] LABS: Alanine Aminotransferase 13 IU/L (<35); Albumin 3.1 g/dL (3.5-5.0); Albumin Globulin Ratio 0.9 (1.0-2.8); Alkaline Phosphatase 214 U/L (38-126); Aspartate Aminotransferase 26 IU/L (14-36); BUN Creatinine Ratio 10.3 (6-22); Bilirubin Total 0.2 mg/dL (0.2-1.3); Blood Urea Nitrogen 4 mg/dL (7-17); Carbon Dioxide 20 mmol/L (22-32); Chloride 105 mmol/L (98-107); Estimated Glomerular Filt Rate > 60 mL/min (>60); Globulin 3.4 g/dL (1.7-4.1); Glucose 87 mg/dL (70-100); HEMOLYSIS < 15 (0-50); Potassium 3.6 mmol/L (3.4-5.1); Sodium 133 mmol/L (137-145); Total Protein 6.5 g/dL (6.3-8.2)
[2022-04-26] MEDS: BETAMETHASONE 30 MG/5 ML MDV 12 MG IM (20:16)
[2022-04-26 20:47] LABS: COVID19 -Nasal RAPID Negative (Negative)
[2022-04-27] MEDS: ACETAMINOPHEN 325 MG TABLET 650 MG PO (00:53)
[2022-04-27] MEDS: NIFEdipine 10 MG CAPSULE PO ×4 (08:21→09:29)
--- NOTE | 2022-04-27 09:47 | P.HPOB_ITS ---
OB HPI Date/Time Date of admission: 04/27/22 Date Patient Seen: 04/27/22 Time Patient Seen: 17:13 History of Present Condition Chief complaint: labor BRITTANY Calculator Estimated Delivery Date Method Current WG Current Estimate 06/08/22 Ultrasound #1 34w 0d Other Estimates 05/28/22 LMP (Certain) 35w 4d 06/04/22 Ultrasound #2 34w 4d # 2 Estimated Gestational Age (weeks): 34 : 4 Para: 1 Narrative: Patient is a 26-year-old 4 para 1 at 34 weeks gestation with dichorionic/diamniotic twins in labor. She presented last evening with contractions. She had had some diarrhea 2 days prior. Her has been complicated by severe hyperemesis gravidarum. She had a PICC line until last week. She was receiving daily IV fluids. She also had a Zofran pump in place. She received the nifedipine protocol last evening which stopped the cont ractions. This morning she started afsaneh again and received 1 dose of nifedipine which stopped the contractions. She has had a cervical change from 1 cm to 3 cm and 80% effaced. care: initiated at week # (11), number of visits (7) and pounds weight gain (-5) Dating criteria OB: LMP confirmed by 1st trimester US Ultrasounds: normal 1st trimester US and normal mid trimester US Obstetrical complications: hyperemesis and other (twins) Medical complications OB: none Preadmission Labs Last OB Lab Results: Blood Type O Positive 04/26/22 19:30 Antibody Screen Negative 04/26/22 19:30 Hematocrit 28.3 % (36-46) L 04/26/22 16:40 Hemoglobin 9.1 g/dL (12.0-16.0) L 04/26/22 16:40 Hepatitis B Surface Antigen Negative s/c (NEGATIVE) 11/22/21 13 :50 Hepatitis C Antibody Negative s/c (NEGATIVE) 11/22/21 13:50 Rubella Antibody 5.6 IU/mL (>15) L 11/22/21 13:50 Varicella-Zoster IgG Antibody <135 index (Immune >165) L 13:50 Group B Streptococcus (PCR) Pending 04/27/22 09:41 -: Chlamydia screen: negative, Gonorrhea screen: negative and Urine: negative -: PAP smear: Normal Genetic Screens: Cell-free DNA: Normal and Alpha-fetoprotein: Normal External Labs -: Urine: negative Prior (ies) Past Pregnancies Del. Date GA/Weeks Labor Lgth Wt Sex Route Outcome Anesthesia Place Delv Breastfeed Preg Comp Name 11/29/16 38 20 5 lb 2 oz Male vaginal live - full term [facility] 2 yrs other Zach 02/08/21 5 elective 05/11/21 5 spontaneous Delivery Date: 11/29/16 Last Updated by: Paula Smith R.N. Hyperemesis to 34 wks, zofran pump, failed epidural Evaluation Evaluation Baseline heart rate: 135 Variability: Moderate (11-25) monitor accelerations: Present Monitor Decelerations: Absent Contraction Frequency (minutes): 8 Uterine Contraction Intensity: Mild Status: Category l Dilation (cm): 3 Effacement (%): 80 station: -1 Position of cervix: anterior Consistency: soft [facility] Medical History Eye injury Healthy adult Intrinsic atopic dermatitis Surgical History History of tonsillectomy Family History Sister Borderline diabetes Social History marital status: unmarried,living together number of children: 1 household members: spouse and family lives independently: Yes housing: house pets and animals: Yes (Dog - aware Toxoplasmosis) education level: high school occupational status: unemployed (emergency leave) and previously employed current occupational exposures/hazards: No special lexa needs: No seatbelt use: always water heater temp set < 120 deg: Yes (will check) working smoke detector in home: Yes fire extinguisher in home: Yes carbon monox detector in home: Yes firearms in home: Yes firearms unloaded and locked: Yes do you feel safe at home: Yes Smoking Status: Never smoker second hand exposure: No alcohol intake: former substance use type: does not use during the past year weight has: remained stable well-balanced diet: daily or most days daily servings fruits/ve-4 caffeine: Yes (200mg limit) Type(s) of exercise: walking Meds Home Medications and Allergies Home Medications Medication Instructions Recorded Confirmed Type Double electric breast pump 1 ea topical .prn #1 ea 04/06/22 04/27/22 Rx promethazine 25 mg tablet 25 mg PO Q4-6H PRN nausea and 04/19/22 04/20/22 Rx vomiting #20 tabs Allergies Allergy/AdvReac Type Severity Reaction Status Date / Time latex Allergy Verified 04/20/22 14:27 erythromycin base AdvReac Intermediate Verified 04/20/22 14:27 OB Exam Narrative Exam Narrative: Generally: Patient lying in bed, mild distress secondary to situation. Lungs: Clear to auscultation bilaterally Cardiovascular: Regular rate and rhythm Fundal height: 39 cm Presentation: Vertex/breech Estimated weight: on 04/20/22 A 4#5oz/ B 4#9oz Extremities: Left upper arm with healing scar from PICC line. No edema in lower extremities. Objective Labs Result Diagrams: 04/26/22 16:40 04/26/22 16:40 Labs: Laboratory Results - last 24 hr 04/26/22 04/26/22 04/26/22 16:40 16:40 16:55 WBC 8.6 RBC 3.47 L Hgb 9.1 L Hct 28.3 L MCV 81.5 MCH 26.3 MCHC 32.2 RDW 15.4 H Plt Count 251 Neut % (Auto) 75.7 H Lymph % (Auto) 16.7 L [place] % (Auto) 6.2 Eos % (Auto) 1.2 L Baso % (Auto) 0.2 Neut # (Auto) 6500 Lymph # (Auto) 1400 [place] # (Auto) 500 Eos # (Auto) 100 Baso # (Auto) 0 Sodium 133 L Potassium 3.6 Chloride 105 Carbon Dioxide 20 L BUN 4 L Creatinine 0.39 L Estimated GFR > 60 BUN/Creatinine Ratio 10.3 Glucose 87 Calcium 8.0 L Total Bilirubin 0.2 AST 26 ALT 13 Alkaline Phosphatase 214 H Total Protein 6.5 Albumin 3.1 L Globulin 3.4 Albumin/Globulin Ratio 0.9 L Urine Color Yellow Urine Appearance Clear Urine pH 7.0 Ur Specific [place] 1.010 Urine Protein Negative Urine Glucose (UA) Negative Urine Ketones Negative Urine Occult Blood Negative Urine Nitrate Negative Urine Bilirubin Negative Urine Urobilinogen 0.2 Ur Leukocyte Esterase Trace H Urine RBC None seen Urine WBC 5-10/hpf H Ur Squamous Epith Cells 5-10 /hpf H Urine Bacteria Occasional (0-1) Ur Culture Indicated? Specimen cultured SARS-CoV-2 (PCR) Fibronectin Blood Type Antibody Screen 04/26/22 04/26/22 04/26/22 16:55 19:30 20:15 WBC RBC Hgb Hct MCV MCH MCHC RDW Plt Count Neut % (Auto) Lymph % (Auto) [place] % (Auto) Eos % (Auto) Baso % (Auto) Neut # (Auto) Lymph # (Auto) [place] # (Auto) Eos # (Auto) Baso # (Auto) Sodium Potassium Chloride Carbon Dioxide BUN Creatinine Estimated GFR BUN/Creatinine Ratio Glucose Calcium Total Bilirubin AST ALT Alkaline Phosphatase Total Protein Albumin Globulin Albumin/Globulin Ratio Urine Color Urine Appearance Urine pH Ur Specific [place] Urine Protein Urine Glucose (UA) Urine Ketones Urine Occult Blood Urine Nitrate Urine Bilirubin Urine Urobilinogen Ur Leukocyte Esterase Urine RBC Urine WBC Ur Squamous Epith Cells Urine Bacteria Ur Culture Indicated? SARS-CoV-2 (PCR) Negative Fibronectin Positive H Blood Type O Positive Antibody Screen Negative Assessment and Plan Assessment and Plan Assessment and Plan narrative: Assessment: 26-year-old 4 para 1 at 34 weeks gestation with dichorionic/diamniotic twins Concordant growth labor with cervical change from 1 to 3 cm overnight Plan: GBS obtained Steroids given April 26, 2022 at 8:00 p.m. Cefazolin 2 g IV Mag sulfate 4 g IV load, 2 g maintenance dose Transfer by ground to [facility] Discussed with Dr. Frances Michaud who accepted transfer Time Spent with Patient Total time spent with greater than 50% in coordination of care (as documented) at patient's floor/unit and/or counseling patient:: Greater than 35 minutes
[2022-04-27] MEDS: LACTATED RINGERS 1,000 ML 150 ML IV (10:11)
[2022-04-27] MEDS: MAGNESIUM SULFATE 4 GM/100 ML PIGGYBACK IV (10:18)
[2022-04-27] MEDS: CEFAZOLIN 2 GM/100 ML PREMIX 100 ML IV (10:44)
[2022-04-27] MEDS: MAGNESIUM SULFATE 20 GM/500 ML IV.SOLN IV (11:19)
[2022-04-27 11:57] LABS: Strep Grp B PCR NEG for Grp B Strep
== END 2022-04-27 12:35 | disposition home or self-care (01) ==
PROVIDERS: Obstetrics & Gynecology; Admitting Provider Obstetrics & Gynecology; PCP Nurse Practitioner Family; Referring Provider Obstetrics & Gynecology; Visit Provider Obstetrics & Gynecology
DX: O60.03 Preterm labor without delivery, third trimester (principal); O30.043 Twin pregnancy, dichorionic/diamniotic, third trimester; Z3A.34 34 weeks gestation of pregnancy; Z20.822 Contact with and (suspected) exposure to COVID-19
CPT/HCPCS: 59025; 59050; 76815; 80053; 81001; 82731; 85025; 86850; 86900; 86901; 87081; 87086; 87635; 87653; 96360; C9803; G0378; G0379; J0690; J0702; J3475

== ENCOUNTER → 2022-05-22 16:36 | Outpatient (CLI) | payer OTHER, MEDICAID, SELFPAY ==
[2021-12-03 22:27] VITALS: BMI 27.8
--- NOTE | 2022-05-22 16:48 | DI.US.S_ITS ---
PROCEDURE: US PERIPH VENOUS LOW EXTREM RT INDICATIONS: PAIN IN RIGHT LEG TECHNIQUE: Real-time imaging, as well as color and pulse Doppler interrogation, were performed of the lower extremity deep veins from the inguinal ligament to the popliteal fossa. COMPARISON: None. FINDINGS: The common femoral, femoral and popliteal veins are normally compressible, and free of intraluminal thrombus. Color and pulse Doppler demonstrate normal phasic intraluminal flow. There is normal augmentation response to distal compression maneuver. IMPRESSION: No right lower extremity DVT. Dictated by: Shane Butt M.D. on 05/22/2022 at 17:18 Approved by: Shane Butt M.D. on 05/22/2022 at 17:18
== END ==
PROVIDERS: PCP Nurse Practitioner Family; Referring Provider Nurse Practitioner Family; Visit Provider Nurse Practitioner Family
DX: M79.661 Pain in right lower leg (principal)
CPT/HCPCS: 93971